=== PATIENT | male | born 1965 | race African-American/Black ===

== ENCOUNTER 2016-05-13 08:13 | Inpatient (IN) | payer MEDICAID, OTHER ==
[~2016-05-13] VITALS: Ht 182.9 cm; Wt 167.7 kg
[2016-05-13] VITALS (17 sets, daily range): BP systolic 120–183; BP diastolic 64–101; PULSE 62–88; RESP 13–23; TEMP 95–98.5; O2SAT 83–100
[~2016-05-13 08:13] MED LIST: CYCL1TAB29 PO; FURO20TA PO; IBUP800T23 PO; LOVA40TA PO
[2016-05-13] MEDS ORDERED: VECURONIUM BROMIDE 10 MG VIAL ONE (08:17)
[2016-05-13] MEDS ORDERED: ETOMIDATE 20 MG/10 ML VIAL ONE (08:17)
[2016-05-13] MEDS ORDERED: SUCCINYLCHOLINE CHLORIDE 200 MG/10 ML VIAL ONE (08:26)
[2016-05-13] MEDS ORDERED: ETOMIDATE 20 MG/10 ML VIAL IVP ONE (08:45)
[2016-05-13] MEDS ORDERED: SUCCINYLCHOLINE CHLORIDE 200 MG/10 ML VIAL IVP ONE (08:45)
[2016-05-13] MEDS ORDERED: SODIUM CHLORIDE 0.9% FLUSH 5 ML FLUSH IVF PRN ×2 (08:45)
[2016-05-13] MEDS ORDERED: VECURONIUM BROMIDE 10 MG VIAL IV ONE (08:45)
[2016-05-13] MEDS ORDERED: PROPOFOL 200 MG/20 ML AMP IV ONE ×2 (08:45→12:00)
[2016-05-13] MEDS: SODIUM CHLOR 0.9% 1000 ML INJ 1,000 ML IV SCH (08:49)
[2016-05-13] MEDS ORDERED: AZITHROMYCIN INJ 500 MG in SODIUM CHLOR 0.9% 250 ML INJ 250 ML IV STA (09:02)
[2016-05-13] MEDS ORDERED: cefTRIAXone INJ 2,000 MG in SODIUM CHLORIDE 0.9% INJ 100 ML IV STA (09:02)
--- NOTE | 2016-05-13 09:07 | PD ---
HPI Chief Complaint: Respiratory Distress Time Seen by Provider: 08:36 Travel History International Travel<30 days: No Contact w/Intl Traveler<30days: No Traveled to known affect area: No History of Present Illness HPI 51-year-old male with unknown medical history, presents to the ER today brought in by EMS, apparently was found down on a park bench, unresponsive, coarse respirations, and EMS had initiated attempt to intubate the patient due to coarse respiration and not protecting airway, and were unsuccessful on scene. He is brought into the ER for unresponsiveness. He has not able to give me any further history. Modifying Factors: None Associated Signs & Symptoms: Unresponsive, coarse respirations, not protecting airway Risk Factors: Unknown PFSH Past Medical History Medical History: Unable to Obtain Tetanus Vaccination: Unknown Past Surgical History Surgical History: Unable to Obtain Social History Alcohol Use: No (UNOBTAINABLE) Tobacco Use: No (UNOBTAINABLE) Substance Use: No (UNOBTAINABLE) Allergies-Medications (Allergen,Severity, Reaction): Coded Allergies: No Known Allergies (Unverified , 05/13/16) Reported Meds & Prescriptions Reported Meds & Active Scripts Active Active Prescriptions or Reported Medications Unobtainable Review of Systems ROS Limitations: Unresponsive Physical Exam Narrative GENERAL: Well-nourished, well-developed middle age -French male patient who is unresponsive to painful stimuli, intubated in the ER for airway protection. SKIN: Warm and dry. HEAD: Normocephalic. EYES: No scleral icterus. No injection or drainage. Pupils are round, equal, dilated bilaterally not responsive to light. NECK: Supple, trachea midline. CARDIOVASCULAR: Regular rate and rhythm without murmurs, gallops, or rubs. RESPIRATORY: Breath sounds equal and coarse bilaterally. No accessory muscle use. GASTROINTESTINAL: Abdomen soft, non-tender, nondistended. MUSCULOSKELETAL: No cyanosis, or edema. BACK: Nontender without obvious deformity. No CVA tenderness. Data Data Last Documented VS Vital Signs Date Time Temp Pulse Resp B/P Pulse Ox O2 Delivery O2 Flow Rate FiO2 05/13/16 09:13 60 05/13/16 09:03 95.0 67 18 147/69 100 Ventilator 05/13/16 08:19 15 Orders Etomidate Inj (Amidate Inj) (05/13/16 08:17) Vecuronium 10 Mg Inj (Norcuron 10 Mg Inj (05/13/16 08:17) Succinylcholine Inj (Quelicin Inj) (05/13/16 08:26) Chest, Single Ap (05/13/16 08:36) Arterial Blood Gas (Abg) (05/13/16 08:36) Ecg Monitoring (05/13/16 08:36) Iv Access Insert/Monitor (05/13/16 08:36) Oximetry (05/13/16 08:36) Etomidate Inj (Amidate Inj) (05/13/16 08:45) Succinylcholine Inj (Quelicin Inj) (05/13/16 08:45) Vecuronium 10 Mg Inj (Norcuron 10 Mg Inj (05/13/16 08:45) Sodium Chloride 0.9% Flush (Ns Flush) (05/13/16 08:45) Alcohol (Ethanol) (05/13/16 08:36) Ammonia (05/13/16 08:36) Complete Blood Count With Diff (05/13/16 08:36) Comprehensive Metabolic Panel (05/13/16 08:36) Creatine Kinase (Cpk) (05/13/16 08:36) Drug Screen, Random Urine (05/13/16 08:36) Prothrombin Time / Inr (Pt) (05/13/16 08:36) Act Partial Throm Time (Ptt) (05/13/16 08:36) Troponin I (05/13/16 08:36) Thyroid Stimulating Hormone (05/13/16 08:36) Lactic Acid Sepsis Protocol (05/13/16 08:36) Urinalysis - C+S If Indicated (05/13/16 08:36) Blood Culture (05/13/16 08:36) Ct Brain W/O Iv Contrast(Rout) (05/13/16 08:36) Blood Glucose (05/13/16 08:36) Urinary Catheter Insert/Apply (05/13/16 08:36) Sodium Chloride 0.9% Flush (Ns Flush) (05/13/16 08:45) Sodium Chlor 0.9% 1000 Ml Inj (Ns 1000 M (05/13/16 08:36) Propofol 1000 Mg/100 Ml Inj (Diprivan 10 (05/13/16 08:45) Propofol 200 Mg/20 Ml Inj (Diprivan 200 (05/13/16 08:45) Restraints Non-Violent HENRIQUE.Q3H (05/13/16 09:02) Ceftriaxone Inj (Rocephin Inj) (05/13/16 09:02) Azithromycin Inj (Zithromax Inj) (05/13/16 09:02) Admit Order (Ed Use Only) (05/13/16 09:32) CKMB (05/13/16 08:45) CKMB% (05/13/16 08:45) Labs Laboratory Tests Test 05/13/16 05/13/16 05/13/16 08:35 08:45 08:53 Urine Color YELLOW Urine Turbidity CLEAR Urine pH 5.0 Urine Specific [place] 1.016 Urine Protein NEG mg/dL Urine Glucose (UA) 1000 mg/dL Urine Ketones 10 mg/dL Urine Occult Blood NEG Urine Nitrite NEG Urine Bilirubin NEG Urine Urobilinogen LESS THAN 2.0 MG/DL Urine Leukocyte Esterase NEG Urine RBC LESS THAN 1 /hpf Urine WBC 3 /hpf Urine Squamous Epithelial <1 /hpf Cells Urine Mucus FEW /lpf Microscopic Urinalysis Comment CATH-CULT NOT IND Urine Opiates Screen NEG Urine Barbiturates Screen NEG Urine Amphetamines Screen NEG Urine Benzodiazepines Screen NEG Urine Cocaine Screen NEG Urine Cannabinoids Screen NEG White Blood Count 10.3 TH/MM3 Red Blood Count 4.50 MIL/MM3 Hemoglobin 12.2 GM/DL Hematocrit 37.7 % Mean Corpuscular Volume 83.8 FL Mean Corpuscular Hemoglobin 27.1 PG Mean Corpuscular Hemoglobin 32.4 % Concent Red Cell Distribution Width 14.7 % Platelet Count 203 TH/MM3 Mean Platelet Volume 7.6 FL Neutrophils (%) (Auto) 86.7 % Lymphocytes (%) (Auto) 5.9 % Monocytes (%) (Auto) 7.1 % Eosinophils (%) (Auto) 0.0 % Basophils (%) (Auto) 0.3 % Neutrophils # (Auto) 8.9 TH/MM3 Lymphocytes # (Auto) 0.6 TH/MM3 Monocytes # (Auto) 0.7 TH/MM3 Eosinophils # (Auto) 0.0 TH/MM3 Basophils # (Auto) 0.0 TH/MM3 CBC Comment DIFF FINAL Differential Comment Prothrombin Time 10.9 SEC Prothromb Time International 1.0 RATIO Ratio Activated Partial 26.8 SEC Thromboplast Time Sodium Level 134 MEQ/L Potassium Level 3.8 MEQ/L Chloride Level 101 MEQ/L Carbon Dioxide Level 19.9 MEQ/L Anion Gap 13 MEQ/L Blood Urea Nitrogen 7 MG/DL Creatinine 0.89 MG/DL Estimat Glomerular Filtration 110 ML/MIN Rate Random Glucose 209 MG/DL Lactic Acid Level 5.1 mmol/L Calcium Level 8.4 MG/DL Total Bilirubin 0.2 MG/DL Aspartate Amino Transf 26 U/L (AST/SGOT) Alanine Aminotransferase 23 U/L (ALT/SGPT) Alkaline Phosphatase 88 U/L Ammonia 33 MCMOL/L Total Creatine Kinase 368 U/L Creatine Kinase MB 3.0 NG/ML Creatine Kinase MB % 0.8 % Troponin I LESS THAN 0.02 NG/ML Total Protein 7.8 GM/DL Albumin 3.8 GM/DL Thyroid Stimulating Hormone 0.325 uIU/ML 3rd Gen Ethyl Alcohol Level LESS THAN 3 MG/DL Blood Gas Puncture Site LT RADIAL Blood Gas Patient Temperature 98.6 Blood Gas HCO3 21 mmol/L Blood Gas Base Excess -3.7 mmol/L Blood Gas Oxygen Saturation 95 % Arterial Blood pH 7.32 Arterial Blood Partial 43 mmHg Pressure CO2 Arterial Blood Partial 170 mmHG Pressure O2 Arterial Blood Oxygen Content 17.5 Vol % Arterial Blood 1.6 % Carboxyhemoglobin Arterial Blood Methemoglobin 2.7 % Blood Gas Hemoglobin 12.9 G/DL Oxygen Delivery Device VENTILATOR Blood Gas Ventilator Setting PRVC/AC Blood Gas Inspired Oxygen 100 % [facility] Medical Decision Making Medical Screen Exam Complete: Yes Emergency Medical Condition: Yes Medical Record Reviewed: Yes Interpretation(s) Laboratory Tests Test 05/13/16 05/13/16 05/13/16 08:35 08:45 08:53 Urine Glucose (UA) 1000 mg/dL (NEG) Urine Ketones 10 mg/dL (NEG) Urine Mucus FEW /lpf (OCC) Hemoglobin 12.2 GM/DL (13.0-17.0) Hematocrit 37.7 % (39.0-51.0) Neutrophils (%) (Auto) 86.7 % (16.0-70.0) Lymphocytes (%) (Auto) 5.9 % (9.0-44.0) Neutrophils # (Auto) 8.9 TH/MM3 (1.8-7.7) Lymphocytes # (Auto) 0.6 TH/MM3 (1.0-4.8) Sodium Level 134 MEQ/L (136-145) Carbon Dioxide Level 19.9 MEQ/L (21.0-32.0) Random Glucose 209 MG/DL (74-106) Lactic Acid Level 5.1 mmol/L (0.4-2.0) Calcium Level 8.4 MG/DL (8.5-10.1) Ammonia 33 MCMOL/L (11-32) Total Creatine Kinase 368 U/L (39-308) Troponin I LESS THAN 0.02 NG/ML (0.02-0.05) Thyroid Stimulating Hormone 0.325 uIU/ML 3rd Gen (0.358-3.740) Blood Gas HCO3 21 mmol/L (22-26) Blood Gas Base Excess -3.7 mmol/L (-2-2) Arterial Blood pH 7.32 (7.380-7.420) Arterial Blood Partial 43 mmHg (38-42) Pressure CO2 Arterial Blood Partial 170 mmHG Pressure O2 (61-120) Arterial Blood Methemoglobin 2.7 % (0-2) Last [address] 05/13/16835 Signed Impressions: Service Date/Time: Friday, May 13, 2016 09:57 - CONCLUSION: 1. There is a large left parietal hemorrhage measuring 6.5 x 7.5 cm which has ruptured into the ventricular system. There is 2 cm of left to right falcine shift and some degree of downward herniation as well. Nomi Conti MD Chest X-Ray 05/13/16835 Signed Impressions: Service Date/Time: Friday, May 13, 2016 08:42 - CONCLUSION: 1. ET tube in good position. 2. Widening of the mediastinum. CT imaging of the thorax with contrast is warranted for further assessment. Nomi Conti MD Differential Diagnosis Unresponsive, coarse respirationsaspiration versus pneumonia versus CHF versus COPD versus metabolic issues versus acute intracranial processes Narrative Course Patient is intubated in the ER for airway protection. Considering the greenish discharge seen within the respiratory tract, IV antibiotics were initiated as precaution. Cultures were drawn. Chest x-ray returns showing bilateral fluffy infiltrates and ET tube appears to be in place. There is some concern of underlying aspiration versus pneumonia. In addition, CT of the brain returns showing large parietal hemorrhage with shift. At this point, neurosurgery was called to be involved in care, Dr. Turner came in to see the patient and states that there is not likely to be a surgical cure for this, that the patient should be admitted to program management analyst care. Case had been initially discussed with Dr. Greer for admission to ICU, he accepted the case initially. Aggregate critical care time was 35 minutes. Time to perform other separately billable procedures was not included in the critical care time. My time did not include minutes spent treating any other patients simultaneously or on activities that did not directly contribute to the patient's treatment. The services I provided to this patient were to treat and/or prevent clinically significant deterioration that could result in: Respiratory failure, worsening intracranial hemorrhage, I provided critical care services requiring my management, as noted below: Chart data review, documentation time, medication orders and management, vital sign assessments/reviewing monitor data, ordering and reviewing lab tests, ordering and interpreting/reviewing x-rays and diagnostic studies, care of the patient and discussion of the patient with the admitting physicians. Procedures Procedure Narrative Patient is not protecting the airway, obtunded, the following procedure was performed for airway protection: INTUBATION: The patient was put in optimal position for the procedure. Rapid sequence intubation was initiated by me using 20 milligrams of etomidate IV and 10 mg of vecuronium IV which she did not respond to well, and 100 milligrams of succinylcholine IV was given. The patient was intubated with a 8.0 cuffed endotracheal tube. Tube placement was confirmed by visualization of the tube and balloon passing through the cords, capnometry and subsequent chest x-ray. Breath sounds were equal and well aerated bilaterally postintubation. No breath sounds over stomach. Patient tolerated procedure well. Diagnosis Primary Impression: Acute intracranial hemorrhage Additional Impression: Endotracheally intubated Admitting Information Admitting Physician Requests: Admit Scripts Unable to Obtain Active Prescriptions or Reported Meds Landon Denny MD May 13, 2016 09:06
[2016-05-13 09:16] LABS: BLOOD, URINE NEG (NEG); GLUCOSE,URINE 1000 mg/dL (NEG); KETONE, URINE 10 mg/dL (NEG); MUCUS URINE FEW /lpf (OCC); NITRITE,URINE NEG (NEG); SQUAMOUS EPITHELIAL CELL URINE <1 /hpf (0-5); URINE COLOR YELLOW (YELLW/STRAW)
[2016-05-13 09:18] LABS: COMMENT (UR) CATH-CULT NOT IND; CULTURE IF INDICATED CATH CULTURE NOT IND
[2016-05-13 09:26] LABS: BLOOD GAS BASE EXCESS -3.7 mmol/L (-2-2); BLOOD GAS CARBOXYHEMOGLOBIN 1.6 % (0-4); BLOOD GAS HCO3 21 mmol/L (22-26); BLOOD GAS METHEMOGLOBIN 2.7 % (0-2); BLOOD GAS O2 HGB SATURATION 95 % (90-100); BLOOD GAS OXYGEN CONTENT 17.5 Vol % (12.0-20.0); BLOOD GAS PCO2 43 mmHg (38-42); BLOOD GAS PO2 170 mmHG (61-120); BLOOD GAS TOTAL HGB 12.9 G/DL (12.0-16.0); CRITICAL VALUE NO; OXYGEN DEVICE VENTILATOR; TEMP CORR TO 98.6
[2016-05-13 09:26] LABS: AUTOMATED NEUTROPHIL # 8.9 TH/MM3 (1.8-7.7); BASOPHIL % 0.3 % (0.0-2.0); HEMATOCRIT 37.7 % (39.0-51.0); HEMO FLAGS DIFF FINAL; LYMPH % 5.9 % (9.0-44.0); LYMPHOCYTE # 0.6 TH/MM3 (1.0-4.8); MEAN CELL VOLUME 83.8 FL (80.0-100.0); MEAN CORPUSCULAR HEMOGLOBIN 27.1 PG (27.0-34.0); MEAN CORPUSCULAR HGB CONC 32.4 % (32.0-36.0); MONO % 7.1 % (0.0-8.0); NEUT % 86.7 % (16.0-70.0); PLATELET COUNT 203 TH/MM3 (150-450); RED CELL DISTRIBUTION WIDTH 14.7 % (11.6-17.2); WHITE BLOOD COUNT 10.3 TH/MM3 (4.0-11.0)
[2016-05-13 09:27] LABS: DRAW SITE LT RADIAL; FIO2 100 %; NUMBER OF ARTERIAL PUNCTURES 1; STAT YES; ULNAR PULSE PRESENT; VENT SETTINGS PRVC/AC
[2016-05-13 09:31] LABS: APTT (PATIENT) 26.8 SEC (24.3-30.1); PROTHROMBIN TIME - PATIENT 10.9 SEC (9.8-11.6)
--- NOTE | 2016-05-13 09:35 | RADRPT ---
EXAM DATE/TIME: 05/13/2016 08:42 [facility] COMPARISON: No previous studies available for comparison. INDICATIONS : Post intubation MEDICAL HISTORY : None. SURGICAL HISTORY : None. ENCOUNTER: Initial ACUITY: 1 day PAIN SCORE: Non-responsive. LOCATION: Bilateral chest FINDINGS: The heart is normal in size. There is widening of the mediastinum and peritracheal region bilaterally . This would suggest probable adenopathy. Hemorrhage or aortic dissection is not excluded. CT imaging of the thorax is warranted for further assessment. The ET tubes in good position. No pneumothorax is seen. The pulmonary parenchyma is clear. The bony structures are intact. CONCLUSION: 1. ET tube in good position. 2. Widening of the mediastinum. CT imaging of the thorax with contrast is warranted for further asses sment. Nomi Conti MD on May 13, 2016 at 9:32 Board Certified Radiologist. This report was verified electronically.
[2016-05-13 09:52] LABS: ANION GAP 13 MEQ/L (5-15); AST (GOT) 26 U/L (15-37); BICARBONATE 19.9 MEQ/L (21.0-32.0); BLOOD UREA NITROGEN 7 MG/DL (7-18); CHLORIDE 101 MEQ/L (98-107); GLOMERULAR FILTRATION RATE 110 ML/MIN (>89); POTASSIUM 3.8 MEQ/L (3.5-5.1); SODIUM (NA) 134 MEQ/L (136-145)
[2016-05-13 09:53] LABS: AMPHETAMINE, URINE NEG (NEG); BARBITURATES, URINE NEG (NEG); COCAINE, URINE NEG (NEG)
[2016-05-13 09:57] LABS: ALKALINE PHOSPHATASE 88 U/L (45-117); ALT (GPT) 23 U/L (12-78); CREATINE KINASE 368 U/L (39-308); TOTAL BILIRUBIN ADULT 0.2 MG/DL (0.2-1.0)
--- NOTE | 2016-05-13 10:16 | RADRPT ---
EXAM DATE/TIME: 05/13/2016 09:57 [facility] COMPARISON: No previous studies available for comparison. INDICATIONS : Found down on side of road, hypothermic RADIATION DOSE: 71.96 CTDIvol (mGy) MEDICAL HISTORY : Non-responsive. SURGICAL HISTORY : Non-responsive. ENCOUNTER: Initial ACUITY: 1 day PAIN SCALE: Non-responsive LOCATION: cranial TECHNIQUE: Multiple contiguous axial images were obtained of the head. Using automated exposure control and adj ustment of the mA and/or kV according to patient size, radiation dose was kept as low as reasonably a chievable to obtain optimal diagnostic quality images. FINDINGS: The examination demonstrates intraparenchymal hemorrhage in the left parietal cortex measuring only 7 .5 x 6.5 cm. There is rupture of the hemorrhage into the ventricular system with hemorrhage filling t he left lateral ventricle and partially filling the lateral ventricular system on the right. There is hemorrhage seen within the third and fourth ventricle as well. There is significant mass effect asso ciated with the hemorrhage with at least 2 cm of left to right falcine shift. There is mild effacemen t of the ambient and coronal cisterns on the right suggesting some degree of transtentorial herniatio n. There is enlargement of anterior horn of the right lateral ventricle. The osseous structures of the skull are intact. There is moderate mucoperiosteal sinus disease eviden t. CONCLUSION: 1. There is a large left parietal hemorrhage measuring 6.5 x 7.5 cm which has ruptured into the ventr icular system. There is 2 cm of left to right falcine shift and some degree of downward herniation as well. Nomi Conti MD on May 13, 2016 at 10:12 Board Certified Radiologist. This report was verified electronically.
[2016-05-13] MEDS: PROPOFOL 1000 MG/100 ML INJ 100 ML IV SCH ×3 (10:36→23:03)
[2016-05-13 11:07] LABS: LACTIC ACID GHOST NOT REPORTABLE
--- NOTE | 2016-05-13 11:55 | PD.CONS ---
History of Present Illness Service Surgery Consult Requested By Emergency room Reason for Consult Intracranial hemorrhage Primary Care Physician No Primary Care Physician Diagnoses: History of Present Illness 51-year-old male reportedly found unresponsive on a park bench this morning. Reported with course shallow respirations at the scene, unable to intubate prior to arrival in the emergency room. Now intubated, with stable vital signs. No seizure activity reported. Patient reportedly resides at a homeless center. Thus far unable to contact family members for additional information. Review of Systems Other Unable to obtain review of systems due to altered mental status Past Family Social History Allergies: Coded Allergies: No Known Allergies (Unverified , 05/13/16) Past Medical History Unable to obtain past medical, surgical, social or family history due to altered mental status. No family available Physical Exam Vital Signs Vital Signs Date Time Temp Pulse Resp B/P Pulse Ox O2 Delivery O2 Flow Rate FiO2 05/13/16 10:24 95.5 65 18 146/100 100 Ventilator 05/13/16 09:45 100 100 05/13/16 09:13 60 05/13/16 09:03 95.0 67 18 147/69 100 Ventilator 100 05/13/16 08:50 63 16 175/84 100 Ventilator 100 05/13/16 08:40 99 100 05/13/16 08:37 62 18 183/87 100 Ventilator 100 05/13/16 08:31 100 05/13/16 08:19 93 Bag Valve 15 05/13/16 08:16 95.3 79 16 183/101 83 Physical Exam Obese male, intubated, and examined in the emergency room. No scalp lacerations or contusion noted Increased room external auditory canals without CSF otorrhea or rhinorrhea No blood in the external auditory canals No nuchal rigidity Positive bilateral cataracts-fundi not well seen Sclera mildly icteric with moderate bilateral conjunctival edema No facial fracture or deformity or edema. Oropharynx not well seen due to endotracheal tube Respirations clear to auscultation Cardiac regular without murmur No carotid bruit Abdomen soft, obese, mildly distended, hypoactive bowel sounds. Apparent surgical incisions over the abdomen No long bone or joint deformity Posterior tibial and dorsalis pedis pulses are not palpable Mild to moderate distal lower extremity edema No response to voice No eye opening spontaneous or to deep pain Pupil 6 mm nonreactive Moderate bilateral corneal response Absent oculocephalic response Extensor posturing on the right with mixed minimal flexor and extensor posturing on the left upper extremity to deep pain. No response to pain lower extremities Cristopher's response absent bilateral No ankle clonus Laboratory Laboratory Tests Test 05/13/16 05/13/16 05/13/16 08:35 08:45 08:53 Urine Color YELLOW Urine Turbidity CLEAR Urine pH 5.0 Urine Specific [place] 1.016 Urine Protein NEG Urine Glucose (UA) 1000 Urine Ketones 10 Urine Occult Blood NEG Urine Nitrite NEG Urine Bilirubin NEG Urine Urobilinogen LESS THAN 2.0 Urine Leukocyte Esterase NEG Urine RBC LESS THAN 1 Urine WBC 3 Urine Squamous Epithelial <1 Cells Urine Mucus FEW Microscopic Urinalysis Comment CATH-CULT NOT IND Urine Opiates Screen NEG Urine Barbiturates Screen NEG Urine Amphetamines Screen NEG Urine Benzodiazepines Screen NEG Urine Cocaine Screen NEG Urine Cannabinoids Screen NEG White Blood Count 10.3 Red Blood Count 4.50 Hemoglobin 12.2 Hematocrit 37.7 Mean Corpuscular Volume 83.8 Mean Corpuscular Hemoglobin 27.1 Mean Corpuscular Hemoglobin 32.4 Concent Red Cell Distribution Width 14.7 Platelet Count 203 Mean Platelet Volume 7.6 Neutrophils (%) (Auto) 86.7 Lymphocytes (%) (Auto) 5.9 Monocytes (%) (Auto) 7.1 Eosinophils (%) (Auto) 0.0 Basophils (%) (Auto) 0.3 Neutrophils # (Auto) 8.9 Lymphocytes # (Auto) 0.6 Monocytes # (Auto) 0.7 Eosinophils # (Auto) 0.0 Basophils # (Auto) 0.0 CBC Comment DIFF FINAL Differential Comment Prothrombin Time 10.9 Prothromb Time International 1.0 Ratio Activated Partial 26.8 Thromboplast Time Sodium Level 134 Potassium Level 3.8 Chloride Level 101 Carbon Dioxide Level 19.9 Anion Gap 13 Blood Urea Nitrogen 7 Creatinine 0.89 Estimat Glomerular Filtration 110 Rate Random Glucose 209 Lactic Acid Level 5.1 Calcium Level 8.4 Total Bilirubin 0.2 Aspartate Amino Transf 26 (AST/SGOT) Alanine Aminotransferase 23 (ALT/SGPT) Alkaline Phosphatase 88 Ammonia 33 Total Creatine Kinase 368 Creatine Kinase MB 3.0 Creatine Kinase MB % 0.8 Troponin I LESS THAN 0.02 Total Protein 7.8 Albumin 3.8 Thyroid Stimulating Hormone 0.325 3rd Gen Ethyl Alcohol Level LESS THAN 3 Blood Gas Puncture Site LT RADIAL Blood Gas Patient Temperature 98.6 Blood Gas HCO3 21 Blood Gas Base Excess -3.7 Blood Gas Oxygen Saturation 95 Arterial Blood pH 7.32 Arterial Blood Partial 43 Pressure CO2 Arterial Blood Partial 170 Pressure O2 Arterial Blood Oxygen Content 17.5 Arterial Blood 1.6 Carboxyhemoglobin Arterial Blood Methemoglobin 2.7 Blood Gas Hemoglobin 12.9 Oxygen Delivery Device VENTILATOR Blood Gas Ventilator Setting PRVC/AC Blood Gas Inspired Oxygen 100 Date/Time Procedure Status Source Growth 05/13/16 09:00 Aerobic Blood Culture Received Blood Peripheral Pending 05/13/16 09:00 Anaerobic Blood Culture Received Blood Peripheral Pending Result Diagram: 05/13/16 0845 05/13/1645 Imaging 05/13/16 CT scan head images reviewed by the undersigned. Agree with findings as noted below: Head CT 05/13/16835 Signed Impressions: Service Date/Time: Friday, May 13, 2016 09:57 - CONCLUSION: 1. There is a large left parietal hemorrhage measuring 6.5 x 7.5 cm which has ruptured into the ventricular system. There is 2 cm of left to right falcine shift and some degree of downward herniation as well. Nomi Conti MD Chest X-Ray 05/13/16835 Signed Impressions: Service Date/Time: Friday, May 13, 2016 08:42 - CONCLUSION: 1. ET tube in good position. 2. Widening of the mediastinum. CT imaging of the thorax with contrast is warranted for further assessment. Nomi Conti MD Assessment and Plan Assessment and Plan Impression: 1. Left hemisphere large acute intracranial hemorrhage with significant mass effect. Secondary entrapment of the right lateral ventricle with right ventriculomegaly. Plan: Attempted to contact the patient's listed family member, his sister, 2 without success. Patient reportedly lives at a homeless halfway. Despite the large size of the endocranial hemorrhage, he is maintaining moderate amount of mid to lower brain stem response, without evidence of significant brainstem hemorrhage or infarction. Since we are unable to contact family members, we will assume that full intervention is desired, and proceed with surgical evacuation of the hematoma with right ventriculostomy catheter placement. Discussed with emergency room physician Len Turner MD May 13, 2016 11:55
[2016-05-13] MEDS ORDERED: PHENYLEPHRINE HCL 10 MG/ML VIAL IV ONE (12:00)
[2016-05-13] MEDS ORDERED: NORMOSOL R INJ 1,000 ML IV ONE ×2 (12:00)
[2016-05-13] MEDS ORDERED: LACTATED RINGER'S 1000 ML INJ 1,000 ML IV ONE (12:00)
[2016-05-13] MEDS ORDERED: ONDANSETRON HCL 4 MG/2 ML VIAL IV PUSH ONE (12:00)
[2016-05-13] MEDS ORDERED: PHENYLEPH/NS 1000 MCG/10 ML SYR IV ONE (12:00)
[2016-05-13] MEDS ORDERED: LIDOCAINE 1%/EPINEPHrine 1:100,000 SOLN 20 ML VIAL ONE (12:14)
[2016-05-13] MEDS ORDERED: THROMBIN (TOPICAL) 5,000 UNIT VIAL ONE ×2 (12:14→15:06)
[2016-05-13] MEDS ORDERED: GELFOAM SIZE 100 ONE (12:14)
[2016-05-13] MEDS ORDERED: GENTAMICIN SULFATE 80 MG/2 ML VIAL ONE (12:14)
[2016-05-13] MEDS ORDERED: MAGNESIUM OXIDE 400 MG TAB PO PRN (13:15)
[2016-05-13] MEDS ORDERED: POTASSIUM PHOSPHATE MONOBASIC 500 MG TAB PO PRN (13:15)
[2016-05-13] MEDS ORDERED: CHLORHEXIDINE GLUCONATE 2 % 1 PACK (2 CLOTHS) TOP PRN (13:15)
[2016-05-13] MEDS ORDERED: GLUCAGON 1 MG/ML VIAL OTHER PRN (13:15)
[2016-05-13] MEDS ORDERED: SENNOSIDES SYRUP 8.8 MG/5 ML CUP G-TUBE PRN (13:15)
[2016-05-13] MEDS ORDERED: MAGNESIUM HYDROXIDE SUSP 30 ML CUP PO PRN (13:15)
[2016-05-13] MEDS ORDERED: POTASSIUM PHOSPHATE MONOBASIC 500 MG TAB PO/TUBE PRN (13:15)
[2016-05-13] MEDS ORDERED: MAGNESIUM SULFATE INJ 4 GM in SODIUM CHLORIDE 0.9% INJ 92 ML IV PRN (13:15)
[2016-05-13] MEDS ORDERED: DEXTROSE 50% IN WATER 50 ML VIAL(D50) IV PUSH PRN (13:15)
[2016-05-13] MEDS ORDERED: ONDANSETRON HCL 4 MG/2 ML VIAL IV PRN (13:15)
[2016-05-13] MEDS ORDERED: RESP: ALBUTEROL 2.5 MG/IPRATROPIUM 0.5 MG NEB (PRN) INH (13:15)
[2016-05-13] MEDS ORDERED: POTASSIUM CHLOR 20 MEQ PREMIX 100 ML IV PRN ×2 (13:15)
[2016-05-13] MEDS ORDERED: MISCELLANEOUS NURSING INFORMATION XX SCH (13:15)
[2016-05-13] MEDS ORDERED: SODIUM CHLORIDE 0.9% FLUSH 5 ML FLUSH IV FLUSH PRN (13:15)
[2016-05-13] MEDS ORDERED: MAGNESIUM SULFATE INJ 2 GM in SODIUM CHLORIDE 0.9% INJ 96 ML IV PRN (13:15)
[2016-05-13] MEDS ORDERED: ACETAMINOPHEN 325 MG TAB PO PRN (13:15)
[2016-05-13] MEDS ORDERED: POTASSIUM CL 40 MEQ/30 ML LIQ UDC PO/TUBE PRN ×2 (13:15)
[2016-05-13] MEDS ORDERED: POTASSIUM PHOSPHATE INJ 30 MMOL in SODIUM CHLOR 0.9% 250 ML INJ 250 ML IV PRN (13:15)
[2016-05-13] MEDS ORDERED: POTASSIUM CHLOR 40 MEQ PREMIX 100 ML IV PRN (13:15)
[2016-05-13] MEDS ORDERED: SODIUM PHOSPHATE INJ 30 MMOL in SODIUM CHLOR 0.9% 250 ML INJ 240 ML IV PRN (13:15)
[2016-05-13] MEDS: DOCUSATE SODIUM 100 MG/10 ML UDC G-TUBE SCH (14:00)
[2016-05-13 14:10] LABS: BLOOD GAS BASE EXCESS -1.4 mmol/L (-2-2); BLOOD GAS CARBOXYHEMOGLOBIN 1.3 % (0-4); BLOOD GAS HCO3 22 mmol/L (22-26); BLOOD GAS METHEMOGLOBIN 1.3 % (0-2); BLOOD GAS O2 HGB SATURATION 98 % (90-100); BLOOD GAS OXYGEN CONTENT 15.4 Vol % (12.0-20.0); BLOOD GAS PCO2 33 mmHg (38-42); BLOOD GAS PO2 332 mmHg (61-120); BLOOD GAS TOTAL HGB 10.6 G/DL (12.0-16.0); CRITICAL VALUE NO; OXYGEN DEVICE OR; STAT YES; TEMP CORR TO 98.6
[2016-05-13] MEDS: RESP: ALBUTEROL 2.5 MG/IPRATROPIUM 0.5 MG NEB (SCH) INH ×2 (16:00→22:12)
[2016-05-13] MEDS ORDERED: PROPOFOL 500 MG/50 ML INJ 50 ML ONE (16:21)
[2016-05-13] MEDS ORDERED: DO NOT ADM ANY ANTICOAGULANT DRUGS XX PRN (17:09)
[2016-05-13] MEDS: INSULIN ASPART SUPPLEMENTAL SCALE SQ SCH ×2 (17:10→21:00)
[2016-05-13] MEDS ORDERED: MIDAZOLAM HCL 2 MG/2 ML VIAL ONE (17:13)
[2016-05-13] MEDS ORDERED: fentaNYL CITRATE 250 MCG/5 ML AMP ONE (17:14)
--- NOTE | 2016-05-13 17:17 | PD.OP ---
Operative Report Date of Surgery: May 13, 2016 Preoperative Diagnosis: (1) Acute intracranial hemorrhage Large left frontotemporal intracranial hemorrhage Postoperative Diagnosis: (1) Acute intracranial hemorrhage Large left frontotemporal intracranial hemorrhage Procedure: 1. Left frontotemporal craniotomy-evacuation of large parenchymal intracranial hemorrhage 2. Right frontal twist drill for ventriculostomy catheter placement Anesthesia: Gen. endotracheal Surgeon: Len Turner [employer] Consultant(s): Anthony Liu Operation and Findings: Findings: Large left primarily temporal pericranial hemorrhage with significant mass effect. Detail: The patient was brought into the operating room and general endotracheal anesthesia induced without difficulty. The Concepcion catheter, and sequential compression devices were in place. The lines were established per anesthesia. The patient was placed in semilateral position on the 3080 table with the head on the horseshoe headrest. All extremities were appropriately padded Appropriate time-out procedure was performed with all personnel present and in agreement The left side of the head was shaved with the clippers and sterilely prepped and draped 1% Xylocaine was used for local infiltration over the incision site which was made over the left frontotemporal area in a curvilinear fashion and carried sharply down to the cranium through the temporalis muscle and fascia. The scalp and temporalis muscle flap were elevated in a single layer with the periosteal elevator and retracted r over a laparotomy sponge with the large scalp hooks. The auto care center manager was used to place a single bur hole in the posterior left frontoparietal region and the craniotome was used since to incise the bone flap. The dura was moderately tense upon removal of the bone flap. The dura was opened in a cruciate fashion and the edges retracted with 4-0 Nurolon suture. The microscope was brought into place and used for the remainder of the procedure except for the closure. The bipolar forceps were used to make an approximately 1 cm opening in the parenchyma overlying the intracranial hemorrhage A large amount of subacute hematoma was evacuated with gentle suction and irrigation until clear. The hematoma overlying the sylvian fissure was left intact The bipolar forceps were used to control any bleeding at the operative site. The brain was soft and pulsatile at the time of closure. The dura was closed with 4-0 Nurolon in a interrupted and running fashion. A 7 mm flat fluted drain was left in place in the subdural space A 7 mm flat fluted drain was left in place in the subgaleal space The drains were brought out through incisions in the posterior parietal region and secured to the skin with nylon suture The closure was performed with 2-0 Vicryl for the temporalis muscle fascia and galeal closure and karen for the skin closure. Next, a small incision was made at the right frontal region approximately 10 cm above the supraorbital rim and 4 cm lateral to the midline entered sharply down the cranium. The TPS drill with a 5 mm bone bur was used to place a small opening in the cranium. The dura was incised with a 15 blade knife and coagulated with the bipolar forceps. The Codman back to sealed catheter was placed to a depth of 6-7 cm intracranially with good return of blood tinged CSF under low pressure. The catheter was tunneled to the mid posterior frontal region and secured to the skin with nylon suture. The small right frontal incision was closed with karen. A dressing of sterile Telfa, 4 x 4's, and a loose head stockinette was applied. The patient was taken to recovery room in stable condition All counts were correct at the end of the case. Estimated blood loss was 100 cc No specimen was sent to pathology Len Turner MD May 13, 2016 17:17
[2016-05-13] MEDS ORDERED: *morphine SULFATE 8 MG/ML PERIprocedure ONLY ONE ×3 (17:21→17:50)
[2016-05-13 17:29] LABS: BLOOD GAS BASE EXCESS -0.4 mmol/L (-2-2); BLOOD GAS CARBOXYHEMOGLOBIN 1.2 % (0-4); BLOOD GAS HCO3 23 mmol/L (22-26); BLOOD GAS METHEMOGLOBIN 1.4 % (0-2); BLOOD GAS O2 HGB SATURATION 98 % (90-100); BLOOD GAS OXYGEN CONTENT 16.4 Vol % (12.0-20.0); BLOOD GAS PCO2 35 mmHg (38-42); BLOOD GAS PO2 407 mmHg (61-120); BLOOD GAS TOTAL HGB 11.2 G/DL (12.0-16.0); CRITICAL VALUE NO; DRAW SITE ART LINE; FIO2 100 %; OXYGEN DEVICE VENTILATOR; STAT YES; TEMP CORR TO 98.6; VENT SETTINGS AC 800/10/+5PEEP
--- NOTE | 2016-05-13 17:33 | HHI.HP ---
[facility] Service Critical Care Medicine Primary Care Physician No Primary Care Physician Admission Diagnosis unresponsive/intubated Diagnosis: Travel History International Travel<30 Days: No Contact w/Intl Traveler <30 Da: No Traveled to Known Affected Are: No History of Present Illness 51-year-old morbidly obese male ,with unknown medical history, presented to the ED this am. Per EMS report, the patient was found down on a park bench, unresponsive, coarse respirations.EMS attempted to intubate the patient due to coarse respiration and not protecting airway, and were unsuccessful on scene. He was brought into the ED for unresponsiveness. No family or individuals were present to provide any history. The patient was intubated in the ED. Patient was noted to be hypothermic, temperature 95.0, warming methods were initiated via IV fluid and Leslie Hugger. Imaging studies were performed in the ED, T of the brain noted a large left parietal hemorrhage , neurosurgery was consulted. Dr. Turner evaluated the patient, and critical care medicine was consulted for treatment and management. The patient was then emergently transferred to the OR for evacuation of hematoma with right ventriculostomy placement. [facility] Past Medical History Medical History: Unable to Obtain Tetanus Vaccination: Unknown Past Surgical History Surgical History: Unable to Obtain Social History Alcohol Use: No (UNOBTAINABLE) Tobacco Use: No (UNOBTAINABLE) Substance Use: No (UNOBTAINABLE) Allergies-Medications (Allergen,Severity, Reaction): Coded Allergies: No Known Allergies (Unverified , 05/13/16) Reported Meds & Prescriptions Reported Meds & Active Scripts Active Active Prescriptions or Reported Medications Unobtainable Review of Systems ROS Limitations: Unresponsive Past Family Social History Allergies: Coded Allergies: No Known Allergies (Unverified , 05/13/16) Physical Exam Vital Signs Vital Signs Date Time Temp Pulse Resp B/P Pulse Ox O2 Delivery O2 Flow Rate FiO2 05/13/16 17:04 100 100 05/13/16 13:10 77 20 146/91 100 Ventilator 05/13/16 12:35 100 100 05/13/16 11:37 100 60 05/13/16 10:24 95.5 65 18 146/100 100 Ventilator 05/13/16 09:45 100 100 05/13/16 09:13 60 05/13/16 09:03 95.0 67 18 147/69 100 Ventilator 100 05/13/16 08:50 63 16 175/84 100 Ventilator 100 05/13/16 08:40 99 100 05/13/16 08:37 62 18 183/87 100 Ventilator 100 05/13/16 08:31 100 05/13/16 08:19 93 Bag Valve 15 05/13/16 08:16 95.3 79 16 183/101 83 Laboratory Laboratory Tests Test 05/13/16 05/13/16 05/13/16 05/13/16 08:35 08:45 08:53 12:00 Urine Color YELLOW Urine Turbidity CLEAR Urine pH 5.0 Urine Specific Dodson 1.016 Urine Protein NEG Urine Glucose (UA) 1000 Urine Ketones 10 Urine Occult Blood NEG Urine Nitrite NEG Urine Bilirubin NEG Urine Urobilinogen LESS THAN 2.0 Urine Leukocyte Esterase NEG Urine RBC LESS THAN 1 Urine WBC 3 Urine Squamous Epithelial <1 Cells Urine Mucus FEW Microscopic Urinalysis Comment CATH-CULT NOT IND Urine Opiates Screen NEG Urine Barbiturates Screen NEG Urine Amphetamines Screen NEG Urine Benzodiazepines Screen NEG Urine Cocaine Screen NEG Urine Cannabinoids Screen NEG White Blood Count 10.3 Red Blood Count 4.50 Hemoglobin 12.2 Hematocrit 37.7 Mean Corpuscular Volume 83.8 Mean Corpuscular Hemoglobin 27.1 Mean Corpuscular Hemoglobin 32.4 Concent Red Cell Distribution Width 14.7 Platelet Count 203 Mean Platelet Volume 7.6 Neutrophils (%) (Auto) 86.7 Lymphocytes (%) (Auto) 5.9 Monocytes (%) (Auto) 7.1 Eosinophils (%) (Auto) 0.0 Basophils (%) (Auto) 0.3 Neutrophils # (Auto) 8.9 Lymphocytes # (Auto) 0.6 Monocytes # (Auto) 0.7 Eosinophils # (Auto) 0.0 Basophils # (Auto) 0.0 CBC Comment DIFF FINAL Differential Comment Prothrombin Time 10.9 Prothromb Time International 1.0 Ratio Activated Partial 26.8 Thromboplast Time Sodium Level 134 Potassium Level 3.8 Chloride Level 101 Carbon Dioxide Level 19.9 Anion Gap 13 Blood Urea Nitrogen 7 Creatinine 0.89 Estimat Glomerular Filtration 110 Rate Random Glucose 209 Lactic Acid Level 5.1 4.1 Calcium Level 8.4 Phosphorus Level 2.2 Total Bilirubin 0.2 Aspartate Amino Transf 26 (AST/SGOT) Alanine Aminotransferase 23 (ALT/SGPT) Alkaline Phosphatase 88 Ammonia 33 Total Creatine Kinase 368 Creatine Kinase MB 3.0 Creatine Kinase MB % 0.8 Troponin I LESS THAN 0.02 Total Protein 7.8 Albumin 3.8 Thyroid Stimulating Hormone 0.325 3rd Gen Ethyl Alcohol Level LESS THAN 3 Blood Gas Puncture Site LT RADIAL Blood Gas Patient Temperature 98.6 Blood Gas HCO3 21 Blood Gas Base Excess -3.7 Blood Gas Oxygen Saturation 95 Arterial Blood pH 7.32 Arterial Blood Partial 43 Pressure CO2 Arterial Blood Partial 170 Pressure O2 Arterial Blood Oxygen Content 17.5 Arterial Blood 1.6 Carboxyhemoglobin Arterial Blood Methemoglobin 2.7 Blood Gas Hemoglobin 12.9 Oxygen Delivery Device VENTILATOR Blood Gas Ventilator Setting PRVC/AC Blood Gas Inspired Oxygen 100 Test 05/13/16 05/13/16 05/13/16 05/13/16 12:10 13:53 14:02 14:04 Blood Type O POSITIVE O POSITIVE Antibody Screen NEGATIVE Blood Bank Comment Blood Gas Puncture Site DRAWN IN OR Blood Gas Patient Temperature 98.6 Blood Gas HCO3 22 Blood Gas Base Excess -1.4 Blood Gas Oxygen Saturation 98 Arterial Blood pH 7.44 Arterial Blood Partial 33 Pressure CO2 Arterial Blood Partial 332 Pressure O2 Arterial Blood Oxygen Content 15.4 Arterial Blood 1.3 Carboxyhemoglobin Arterial Blood Methemoglobin 1.3 Blood Gas Hemoglobin 10.6 Oxygen Delivery Device OR Crossmatch Leukocyte-Reduced Red Blood Cells Date/Time Procedure Status Source Growth 05/13/16 09:00 Aerobic Blood Culture Received Blood Peripheral Pending 05/13/16 09:00 Anaerobic Blood Culture Received Blood Peripheral Pending Result Diagram: 05/13/1645 05/13/16 0845 Imaging Last Impressions Head CT 05/13/16 0836 Signed Impressions: Service Date/Time: Friday, May 13, 2016 09:57 - CONCLUSION: 1. There is a large left parietal hemorrhage measuring 6.5 x 7.5 cm which has ruptured into the ventricular system. There is 2 cm of left to right falcine shift and some degree of downward herniation as well. Nomi Conti MD Chest X-Ray 05/13/16 0836 Signed Impressions: Service Date/Time: Friday, May 13, 2016 08:42 - CONCLUSION: 1. ET tube in good position. 2. Widening of the mediastinum. CT imaging of the thorax with contrast is warranted for further assessment. Nomi Conti MD Septic Shock Reassessment Heart: Regular rate and rhythm Lungs: Clear Skin: Warm Peripheral Pulses: Bounding Right Radial Bounding Left Radial Bounding Right Dorsalis Pedis Bounding Left Dorsalis Pedis Capillary Refill: Brisk Assessment and Plan Assessment and Plan Plan by systems: Neurologic: Large left parietal hemorrhage with midline shift -Patient unresponsive on admission to ED .Patient on propofol for sedation. Currently GCS 3T -Patient emergently to OR for surgical evacuation of hematoma with ventriculostomy placement -Monitor his ICP postoperatively. Maintain CPP -CT brain 05/13-large left parietal hemorrhage measuring 6.5x 7.5 cm which has ruptured into the ventricular system. 2 cm of efwp-xx-ecnle falcine shift and some downward herniation -Neurosurgery on board, Dr Turner follow-up recommendations Respiratory: Hypoxic and hypercarbic respiratory failure -Mechanical ventilation, initial ABGs 7.32/43/70/21/-3.7 -Maintain O2 sat greater than 92% -Scheduled bronchodilators every 6 hours, and every 2 hours when necessary -Obtain chest x-ray upon presentation from PACU -Initial chest x-ray ED 05/13 revealed widening of mediastinum Cardiovascular: Hypertension -Maintain MAP > 65 mmHg, -Consider vasopressor support, if needed postoperatively to maintain CPP Renal: -Maintain Concepcion -- Strict I/Os FEN/GI: Morbid obesity -OGT to LIWS, monitor output will begin tube feeds possibly in a.m. -Obtain BMP -Replete electrolytes per ICU protocol -Protonix GI prophylaxis -Zofran for nausea Heme/ID: -Monitor CBC -Follow-up blood culture results Endocrine: -Glucose monitoring every 6 hours per ICU protocol -Obtain TSH -- SSI Prophylaxis: GI Prophylaxis Protonix IV DVT Prophylaxis -- SCDs No pharmacological DVT prophylaxis will defer to neurosurgery, and clinically indicated Lines: Peripheral IVs. Central line if indicated. Dispo: This patient remains critically ill with one or more organ systems which are or may become a threat to life. I have spent in excess of 43 minutes discontinuously in the care and management of this patient. This time is exclusive of procedures, and includes, but is not limited to, evaluation of the patient, review of the medical record, discussions with family, consultants, nursing staff, or respiratory therapy, and documentation in the medical record. Code Status Sheree Salazar Discussed Condition With ED RN at bedside Sheree Salazar MD May 13, 2016 17:33 Sheree Salazar MD May 13, 2016 17:33
--- NOTE | 2016-05-13 17:43 | RADRPT ---
EXAM DATE/TIME: 05/13/2016 17:23 [facility] COMPARISON: CHEST SINGLE AP, May 13, 2016, 8:42. INDICATIONS : Central line placement. MEDICAL HISTORY : None. SURGICAL HISTORY : None. ENCOUNTER: Initial ACUITY: 1 day PAIN SCORE: Non-responsive. LOCATION: Bilateral chest FINDINGS: ET tube remains in place terminating just above the gregor in there is a nasogastric tube placed in t he midline of the stomach as well as a left venous catheter probably subclavian terminating in the neff perior vena cava with no pneumothorax. Mediastinal widening is less prominent and there appears to be homogeneous density airspace disease possibly in the right upper lobe. CONCLUSION: Left venous catheter probably subclavian terminates superior vena cava no pneumothorax. ET tube remai ns just above the gregor with the nasogastric tube into the stomach. Right upper lobe density suggest emma infiltrate or atelectasis Seymour Krueger MD on May 13, 2016 at 17:40 Board Certified Radiologist. This report was verified electronically.
[2016-05-13] MEDS ORDERED: IOHEXOL 350 MG/ML 10 ML VIAL (for RAD DIAG) IV ONE (19:08)
[2016-05-13] MEDS: CHLORHEXIDINE 0.12% (ORAL KIT) 15 ML CUP MT SCH (20:00)
--- NOTE | 2016-05-13 20:48 | RADRPT ---
EXAM DATE/TIME: 05/13/2016 18:55 [facility] COMPARISON: No previous studies available for comparison. INDICATIONS : Status post craniotomy, evaluate for aneurysm. IV CONTRAST: 75 cc Omnipaque 350 (iohexol) IV RADIATION DOSE: 23.35 CTDIvol (mGy) MEDICAL HISTORY : None SURGICAL HISTORY : Craniotomy. ENCOUNTER: Subsequent ACUITY: 1 day PAIN SCALE: Non-responsive LOCATION: Bilateral neck TECHNIQUE: Volumetric scanning was performed using a multirow detector CT scanner. The data was post processed with a variety of visualization algorithms including full-volume maximum intensity projection, multip lanar sliding thin-slab reformation, curved-planar reformation, and surface-rendering techniques. Us ing automated exposure control and adjustment of the mA and/or kV according to patient size, radiatio n dose was kept as low as reasonably achievable to obtain optimal diagnostic quality images. FINDINGS: Great vessel origins are patent. Both external carotid, external carotid and common carotid arteries are patent. Internal carotid artery on the right and left are tortuous. Intracranially there is left craniotomy and a large intracranial hemorrhage as described in recent CT . Right frontal ventriculostomy is present. CONCLUSION: 1. Examination negative for carotid stenosis. Minimal calcific plaque at the carotid bifurcations. Gr eat vessel origins patent. Woo Hernandes MD on May 13, 2016 at 20:44 Board Certified Radiologist. This report was verified electronically.
[2016-05-13 20:58] LABS: AUTOMATED NEUTROPHIL # 8.8 TH/MM3 (1.8-7.7); BASOPHIL % 0.2 % (0.0-2.0); HEMO FLAGS DIFF FINAL; LYMPH % 6.2 % (9.0-44.0); LYMPHOCYTE # 0.6 TH/MM3 (1.0-4.8); MEAN CELL VOLUME 81.7 FL (80.0-100.0); MEAN CORPUSCULAR HEMOGLOBIN 27.6 PG (27.0-34.0); MEAN CORPUSCULAR HGB CONC 33.7 % (32.0-36.0); MONO % 4.5 % (0.0-8.0); NEUT % 89.1 % (16.0-70.0); PLATELET COUNT 200 TH/MM3 (150-450); RED BLOOD COUNT 4.04 MIL/MM3 (4.50-5.90); RED CELL DISTRIBUTION WIDTH 14.5 % (11.6-17.2); WHITE BLOOD COUNT 9.8 TH/MM3 (4.0-11.0)
[2016-05-13] MEDS: SODIUM CHLORIDE 0.9% FLUSH 5 ML FLUSH IV FLUSH SCH (21:00)
--- NOTE | 2016-05-13 21:02 | RADRPT ---
EXAM DATE/TIME: 05/13/2016 18:55 [facility] COMPARISON: No previous studies available for comparison. INDICATIONS : Status post craniotomy, evaluate for aneurysm. IV CONTRAST: 75 cc Omnipaque 350 (iohexol) IV ; Cumulative dose for multiple exams. RADIATION DOSE: 22.35 CTDIvol (mGy) ; Combined studies MEDICAL HISTORY : None SURGICAL HISTORY : Craniotomy. ENCOUNTER: Subsequent ACUITY: 1 day PAIN SCALE: Non-responsive LOCATION: Bilateral head TECHNIQUE: Volumetric scanning was performed using a multi-row detector CT scanner. The data was post processed with a variety of visualization algorithms including full volume maximum intensity projection, multi -planar sliding thin slab reformation, curved planar reformation, and surface rendering techniques. Using automated exposure control and adjustment of the mA and/or kV according to patient size, radiat ion dose was kept as low as reasonably achievable to obtain optimal diagnostic quality images. FINDINGS: There is a large hemorrhage in the left hemisphere. Right frontal ventriculostomy is present with tip near foramen of Wallis. There is persistent left to right midline shift of at least 13 mm. There is some pneumocephalus anteriorly. Left craniotomy defect is present. There is a drain in the left hemis phere near the posterior aspect of the hematoma. There is intracranial vasospasm present. Anterior cerebral arteries, right middle cerebral artery and posterior cerebral arteries demonstrate vasospasm but positive flow. There is some extrinsic impress ion on the left middle cerebral artery. Along the posterior aspect of the distal left middle cerebral artery there is an area of increased attenuation. It is unclear if this represents some extravasatio n of contrast or partial filling of an aneurysm measuring up to about 8 mm in diameter. This may be b lit evaluated angiographically. There is fluid in the paranasal sinuses. CONCLUSION: 1. Questionable aneurysm versus focal extravasation of contrast around the distal left middle cerebra l artery measuring up to 8 mm in diameter. This may be better evaluated angiographically. Intracrania l vasospasm present. Woo Hernandes MD on May 13, 2016 at 20:54 Board Certified Radiologist. This report was verified electronically.
[2016-05-13 21:27] LABS: ALKALINE PHOSPHATASE 70 U/L (45-117); ALT (GPT) 22 U/L (12-78); ANION GAP 10 MEQ/L (5-15); AST (GOT) 38 U/L (15-37); BICARBONATE 27.1 MEQ/L (21.0-32.0); BLOOD UREA NITROGEN 6 MG/DL (7-18); CHLORIDE 103 MEQ/L (98-107); GLOMERULAR FILTRATION RATE 130 ML/MIN (>89); SODIUM (NA) 140 MEQ/L (136-145); TOTAL BILIRUBIN ADULT 0.4 MG/DL (0.2-1.0)
--- NOTE | 2016-05-13 21:41 | RADRPT ---
EXAM DATE/TIME: 05/13/2016 19:54 [facility] COMPARISON: CHEST SINGLE AP, May 13, 2016, 17:23. INDICATIONS : Respiratory disease MEDICAL HISTORY : None. SURGICAL HISTORY : None. ENCOUNTER: Initial ACUITY: 1 day PAIN SCORE: Non-responsive. LOCATION: Bilateral chest FINDINGS: A single view of the chest demonstrates endotracheal tube tip in satisfactory position. NG coiled in stomach. Left central line in superior vena cava. Scattered subsegmental air space disease in the dangelo gs. CONCLUSION: 1. Scattered subsegmental airspace disease in the lungs. Endotracheal tube in satisfactory position. NG coiled in stomach. Left central line in superior vena cava. Woo Hernandes MD on May 13, 2016 at 21:38 Board Certified Radiologist. This report was verified electronically.
[2016-05-14] VITALS (24 sets, daily range): BP systolic 111–146; BP diastolic 66–81; PULSE 79–91; RESP 10–21; TEMP 94.6–98.1; O2SAT 98–100
[2016-05-14] MEDS: PROPOFOL 1000 MG/100 ML INJ 100 ML IV SCH ×11 (01:04→23:45)
[2016-05-14 01:43] LABS: BICARBONATE 29.2 MEQ/L (21.0-32.0)
[2016-05-14] MEDS: DOCUSATE SODIUM 100 MG/10 ML UDC G-TUBE SCH ×2 (03:07→13:58)
[2016-05-14] MEDS: RESP: ALBUTEROL 2.5 MG/IPRATROPIUM 0.5 MG NEB (SCH) INH ×4 (03:44→19:43)
[2016-05-14] MEDS: CHLORHEXIDINE GLUCONATE 2 % 1 PACK (2 CLOTHS) TOP SCH (04:00)
[2016-05-14 05:15] LABS: AUTOMATED NEUTROPHIL # 7.8 TH/MM3 (1.8-7.7); BASOPHIL % 0.2 % (0.0-2.0); HEMATOCRIT 33.7 % (39.0-51.0); HEMO FLAGS DIFF FINAL; LYMPH % 7.2 % (9.0-44.0); LYMPHOCYTE # 0.7 TH/MM3 (1.0-4.8); MEAN CORPUSCULAR HEMOGLOBIN 27.9 PG (27.0-34.0); MEAN CORPUSCULAR HGB CONC 34.5 % (32.0-36.0); MONO % 6.7 % (0.0-8.0); NEUT % 85.9 % (16.0-70.0); PLATELET COUNT 202 TH/MM3 (150-450); RED BLOOD COUNT 4.16 MIL/MM3 (4.50-5.90); RED CELL DISTRIBUTION WIDTH 14.6 % (11.6-17.2)
[2016-05-14 05:23] LABS: APTT (PATIENT) 27.9 SEC (24.3-30.1); PROTHROMBIN TIME - PATIENT 11.4 SEC (9.8-11.6)
--- NOTE | 2016-05-14 05:45 | RADRPT ---
EXAM DATE/TIME: 05/14/2016 04:36 [facility] COMPARISON: CHEST SINGLE AP, May 13, 2016, 19:54. INDICATIONS : Shortness of breath. MEDICAL HISTORY : None. SURGICAL HISTORY : None. ENCOUNTER: Subsequent ACUITY: 2 days PAIN SCORE: Non-responsive. LOCATION: Bilateral chest FINDINGS: The support devices remain in place. There is no pneumothorax. There continue to be some scattered in filtrates bilaterally. No significant changes are seen compared to the prior study. No definite pleur al effusions. CONCLUSION: No significant interval change. Tommy Gupta MD on May 14, 2016 at 5:43 Board Certified Radiologist. This report was verified electronically.
[2016-05-14 05:56] LABS: TOTAL BILIRUBIN ADULT 0.2 MG/DL (0.2-1.0)
[2016-05-14 05:58] LABS: INDIRECT BILIRUBIN 0.1 MG/DL (0.0-0.8); MAGNESIUM 2.6 MG/DL (1.5-2.5)
[2016-05-14] MEDS: INSULIN ASPART SUPPLEMENTAL SCALE SQ SCH ×4 (07:00→21:00)
[2016-05-14] MEDS: PANTOPRAZOLE SODIUM 40 MG VIAL IV SCH (08:43)
[2016-05-14] MEDS: CHLORHEXIDINE 0.12% (ORAL KIT) 15 ML CUP MT SCH ×2 (08:43→20:00)
[2016-05-14] MEDS: SODIUM CHLOR 0.9% 1000 ML INJ 1,000 ML IV SCH ×2 (09:43→11:00)
--- NOTE | 2016-05-14 10:13 | HHI.CCPN ---
Subjective Remarks/Hospital Course 51-year-old morbidly obese male ,with unknown medical history, presented to the ED this am. Per EMS report, the patient was found down on a park bench, unresponsive, coarse respirations.EMS attempted to intubate the patient due to coarse respiration and not protecting airway, and were unsuccessful on scene. He was brought into the ED for unresponsiveness. No family or individuals were present to provide any history. The patient was intubated in the ED. Patient was noted to be hypothermic, temperature 95.0, warming methods were initiated via IV fluid and Leslie Hugger. Imaging studies were performed in the ED, T of the brain noted a large left parietal hemorrhage , neurosurgery was consulted. Dr. Turner evaluated the patient, and critical care medicine was consulted for treatment and management. The patient was then emergently transferred to the OR for evacuation of hematoma with right ventriculostomy placement. 05/14 Afebrile. The patient is status post evacuation of large left frontal temporal ICH. Overnight the patient had increasing urinary output, approximately 4006 100 cc/hr, for approximately 3 hours with resolution of polyuria. The patient remains sedated on propofol infusion. Cerebral perfusion pressures have been 60-86, throughout the night. Objective Vital Signs Date Time Temp Pulse Resp B/P Pulse Ox O2 Delivery O2 Flow Rate FiO2 05/14/16 07:49 99 35 05/14/16 06:00 88 05/14/16 06:00 14 134/72 05/14/16 04:00 98.1 05/13/16 18:15 Mechanical Ventilator 05/13/16 08:19 15 Intake and Output 05/13/16 05/13/16 05/14/16 08:00 16:00 00:00 Intake Total 3243 ml Output Total 1100 ml 3206 ml Balance -1100 ml 37 ml Result Diagram: 05/14/16 0450 05/14/16 0115 Other Results Laboratory Tests Test 05/13/16 05/13/16 14:02 17:18 Blood Gas Puncture Site DRAWN IN OR ART LINE Blood Gas Patient Temperature 98.6 98.6 Blood Gas HCO3 22 mmol/L 23 mmol/L (22-26) (22-26) Blood Gas Base Excess -1.4 mmol/L -0.4 mmol/L (-2-2) (-2-2) Blood Gas Oxygen Saturation 98 % (90-100) 98 % (90-100) Arterial Blood pH 7.44 7.44 (7.380-7.420) (7.380-7.420) Arterial Blood Partial 33 mmHg (38-42) 35 mmHg (38-42) Pressure CO2 Arterial Blood Partial 332 mmHg 407 mmHg Pressure O2 (61-120) (61-120) Arterial Blood Oxygen Content 15.4 Vol % 16.4 Vol % (12.0-20.0) (12.0-20.0) Arterial Blood 1.3 % (0-4) 1.2 % (0-4) Carboxyhemoglobin Arterial Blood Methemoglobin 1.3 % (0-2) 1.4 % (0-2) Blood Gas Hemoglobin 10.6 G/DL 11.2 G/DL (12.0-16.0) (12.0-16.0) Oxygen Delivery Device OR VENTILATOR Blood Gas Ventilator Setting AC 800/10/+5PEEP Blood Gas Inspired Oxygen 100 % Imaging Last Impressions Head CT 05/13/16835 Signed Impressions: Service Date/Time: Friday, May 13, 2016 09:57 - CONCLUSION: 1. There is a large left parietal hemorrhage measuring 6.5 x 7.5 cm which has ruptured into the ventricular system. There is 2 cm of left to right falcine shift and some degree of downward herniation as well. Nomi Conti MD Chest X-Ray 05/13/16835 Signed Impressions: Service Date/Time: Friday, May 13, 2016 08:42 - CONCLUSION: 1. ET tube in good position. 2. Widening of the mediastinum. CT imaging of the thorax with contrast is warranted for further assessment. Nomi Conti MD Objective Remarks GENERAL: Super morbidly obese male into dated and sedated. SKIN: Warm and dry. HEAD: Atraumatic. Normocephalic. EYES: Pupils equal and round. Pupils 3 mm, cannot assess reactivity No scleral icterus. No injection or drainage. ENT: No nasal bleeding or discharge. Mucous membranes pink and moist. Orotracheally intubated NECK: Trachea midline. Unable to assess JVD, secondary to body habitus. CARDIOVASCULAR: Normal rate, regular rhythm. S1,S2 RESPIRATORY: No accessory muscle use. Clear to auscultation. Breath sounds equal bilaterally. GASTROINTESTINAL: Abdomen soft, non-tender, nondistended. No guarding. OGT to low intermittent wall suction. MUSCULOSKELETAL: Extremities without clubbing, cyanosis, or edema. No obvious deformities. NEUROLOGICAL: GCS 3T. Intubated sedated propofol infusion at 65 mcgs, Urinary Catheter: Yes Concepcion insert reason: Measure Accurate Output Vascular Central Line Catheter: Yes Assessment to: Continue Date of Insertion: May 13, 2016 Line: Central Venous Catheter Side: Left Location: Subclavian (monitor CVP. Administration of vasoactive medications.) A/P Assessment and Plan Plan by systems: Neurologic: Large left frontal temporal hemorrhage with midline shift S/P craniotomy evacuation of left frontotemporal hemorrhage, and ventriculostomy placement POD #1 Unresponsiveness -Patient continues on on propofol for sedation. GCS 3T, will add fentanyl infusion for pain control if needed. -CPP 60-86 -Maintain systolic blood pressure less than 150mmHg -ANDRÉS drain #1 100 cc, ANDRÉS drain#2 90 cc since admission to ICU (approximately 12 hours) -Monitor his ICP postoperatively. -CT brain 05/13-large left parietal hemorrhage measuring 6.5 x 7.5 cm which has ruptured into the ventricular system. 2 cm of [id number] falcine shift and some downward herniation -Neurosurgery on board, Dr Turner follow-up recommendations Respiratory: Hypoxic and hypercarbic respiratory failure -Mechanical ventilation, AC mode 10/800/5/0.35, will decrease tidal volume to 6- 8 cc/kg of IBW -Maintain O2 sat greater than 92% -Scheduled bronchodilators every 6 hours, and every 2 hours when necessary -Initial chest x-ray ED 05/13 revealed widening of mediastinum Cardiovascular: Hypertension -Maintain MAP > 65 mmHg, -Consider vasopressor support, if needed postoperatively to maintain CPP -Maintain systolic blood pressure less than 150mmHg Renal: Polyuria-resolved -Maintain Concepcion -Urine output upon admission to [facility], 400 cc/hour for approximately 3 hours, with self resolution. 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 Central line left subclavian, left radial a line OR, 05/13 Dispo: This patient remains critically ill with one or more organ systems which are or may become a threat to life. I have spent in excess of 58 minutes discontinuously in the care and management of this patient. This time is exclusive of procedures, and includes, but is not limited to, evaluation of the patient, review of the medical record, discussions with family, consultants, nursing staff, or respiratory therapy, and documentation in the medical record. Physician Sheree Deal MD May 14, 2016 10:13
[2016-05-14 10:28] LABS: BLOOD GAS BASE EXCESS 3.1 mmol/L (-2-2); BLOOD GAS CARBOXYHEMOGLOBIN 0.8 % (0-4); BLOOD GAS HCO3 27 mmol/L (22-26); BLOOD GAS METHEMOGLOBIN 1.1 % (0-2); BLOOD GAS O2 HGB SATURATION 96 % (90-100); BLOOD GAS OXYGEN CONTENT 15.2 Vol % (12.0-20.0); BLOOD GAS PCO2 44 mmHg (38-42); BLOOD GAS PO2 97 mmHg (61-120); BLOOD GAS TOTAL HGB 11.2 G/DL (12.0-16.0); CRITICAL VALUE NO; DRAW SITE ALINE; FIO2 35 %; OXYGEN DEVICE VENTILATOR; STAT NO; TEMP CORR TO 98.6; VENT SETTINGS A/C10/800/PEEP5
[2016-05-14] MEDS: fentaNYL DRIP 250 ML IV SCH (11:15)
[2016-05-14] MEDS: SODIUM CHLORIDE 0.9% FLUSH 5 ML FLUSH IV FLUSH SCH ×2 (12:13→21:00)
[2016-05-14] MEDS ORDERED: Vancomycin Consult Pharmacy 1 EA OTHER SCH (15:00)
--- NOTE | 2016-05-14 15:51 | PD.ID.CON ---
History of Present Illness Service ID Consult Requested By Reason for Consult Evaluation and Mment of gram positive bacteremia in a trauma patient. Primary Care Physician No Primary Care Physician Diagnoses: History of Present Illness Most of the history was obtained from review of medical records. Patient unresponsive. Reportedly patient homeless and no family can be traced. is a 51-year-old male with PMHx of hypercholestrolemia, hypertriglyceridemia, morbid obesity (per review of medical records was seen by in past in system once). Per EMS report, the patient was found down on a park bench, unresponsive, coarse respirations.EMS attempted to intubate the patient due to coarse respiration and not protecting airway, and were unsuccessful on scene. He was brought into the ED for unresponsiveness. No family or individuals were present to provide any history. Upon arrival his vitals in the ED were 183/101 but reportedly in the 200s by EMS. Patients HR on arrival was 79, T-95.3, RR 13. The patient was intubated in the ED. Patient was noted to be hypothermic, temperature 95.0, warming methods were initiated via IV fluid and Leslie Hugger. Imaging studies were performed in the ED, CT of the brain noted a large left parietal hemorrhage, neurosurgery was consulted. Dr. Turner evaluated the patient, and critical care medicine was consulted for treatment and management. The patient was then emergently transferred to the OR for evacuation of hematoma with right ventriculostomy placement. Procedures: Date of Surgery: May 13, 2016 Preoperative Diagnosis: Acute intracranial hemorrhage Procedure: 1. Left frontotemporal craniotomy-evacuation of large parenchymal intracranial hemorrhage 2. Right frontal twist drill for ventriculostomy catheter placement Blood cultures drawn on admission due to hypothermia and rule out sepsis indication are positive for pleomorphic gram positive rods. ID consulted for the same. Review of Systems ROS Limitations: Intubated, Altered Mental Status Past Family Social History Allergies: Coded Allergies: No Known Allergies (Unverified , 05/13/16) Past Medical History Hypercholestrolemia Hypertriglyceridemia Morbid Obesity Bilateral LE swelling was on Lasix. Chronic back pain was on Ibuprofen and recd IM steroids at PCP office. Gynecomastia. Past Surgical History Has a midline surgical scar on examination. Reported Medications Reported Meds & Active Scripts Active Active Prescriptions or Reported Medications Unobtainable Active Ordered Medications Current Medications Medications (Trade) Dose Ordered Sig/Cara Route Start Time Stop Time Status Last Admin (Diprivan 1000 Mg/100ml Inj) 100 ml @ 0 mls/hr TITRATE IV 05/13/16 08:45 05/14/16 13:59 (NS Flush) 2 ml UNSCH PRN IV FLUSH 05/13/16 13:15 (NS Flush) 2 ml BID IV FLUSH 05/13/16 21:00 05/14/16 12:13 (Tylenol) 650 mg Q6H PRN PO 05/13/16 13:15 (Protonix Inj) 40 mg DAILY IV 05/14/16 09:00 05/14/16 08:43 (Zofran Inj) 4 mg Q6H PRN IV 05/13/16 13:15 (Colace Liq) 100 mg Q12H G-TUBE 05/13/16 14:00 05/14/16 13:58 (Milk Of Magnesia Liq) 30 ml Q12H PRN PO 05/13/16 13:15 (Senna Liq) 17.6 mg Q12H PRN G-TUBE 05/13/16 13:15 Miscellaneous Information 1 Q361D XX 05/13/16 13:15 (Chlorhexidine 2% Cloth) 3 pack Taper DAILY@04 TOP 05/14/16 04:00 05/10/17 03:59 05/14/16 04:00 Chlorhexidine Gluconate 3 pack 3 pack UNSCH PRN TOP 05/13/16 13:15 Potassium Chloride 100 ml @ 50 mls/hr Q2H PRN IV 05/13/16 13:15 (KCl 20 Meq Premix Inj) 100 ml @ 50 mls/hr Q2H PRN IV 05/13/16 13:15 Potassium Chloride 40 meq 40 meq UNSCH PRN PO/TUBE 05/13/16 13:15 Potassium Chloride 100 ml @ 25 mls/hr UNSCH PRN IV 05/13/16 13:15 Potassium Chloride 100 ml @ 50 mls/hr Q2H PRN IV 05/13/16 13:15 (Magnesium Sulfate Inj/NS Inj) 100 ml @ 50 mls/hr UNSCH PRN IV 05/13/16 13:15 Magnesium Oxide 800 mg 800 mg UNSCH PRN PO 05/13/16 13:15 (Magnesium Sulfate Inj/NS Inj) 100 ml @ 50 mls/hr UNSCH PRN IV 05/13/16 13:15 Potassium Phosphate 2000 mg 2,000 mg Q4H PRN PO 05/13/16 13:15 (Sodium Phosphate Inj/NS 250 ml Inj) 250 ml @ 42 mls/hr UNSCH PRN IV 05/13/16 13:15 05/14/16 02:11 (KCl 40 Meq/30 ml Liq) 40 meq UNSCH PRN PO/TUBE 05/13/16 13:15 Potassium Phosphate 2000 mg 2,000 mg UNSCH PRN PO/TUBE 05/13/16 13:15 (Potassium Phosphate Inj/NS 250 ml Inj) 260 ml @ 42 mls/hr UNSCH PRN IV 05/13/16 13:15 (Peridex 0.12% Liq) 15 ml BID@08,20 MT 05/13/16 20:00 05/14/16 08:43 (D50w (Vial) Inj) 25 ml UNSCH PRN IV PUSH 05/13/16 13:15 (Glucagon Inj) 1 mg UNSCH PRN OTHER 05/13/16 13:15 Miscellaneous Information ALL NURSING DEPARTME... UNSCH PRN XX 05/13/16 17:09 05/14/16 17:08 Fentanyl Citrate 250 ml @ 0 mls/hr TITRATE IV 05/14/16 10:15 05/14/16 11:15 Sodium Chloride 1,000 ml @ 84 mls/hr [id number] IV 05/14/16 11:00 05/14/16 11:00 (Unasyn Inj/NS Inj) 100 ml @ 200 mls/hr Q6H IV 05/14/16 16:00 Family History Unknown Social History Reportedly homeless. Drug screen on admission was negative as well as alcohol undetectable. Physical Exam Vital Signs Vital Signs Date Time Temp Pulse Resp B/P Pulse Ox O2 Delivery O2 Flow Rate FiO2 05/14/16 13:48 99 35 05/14/16 12:06 100 35 05/14/16 11:51 99 35 05/14/16 10:44 99 35 05/14/16 08:00 97.6 90 13 144/78 99 05/14/16 08:00 99 Mechanical Ventilator 35 05/14/16 08:00 90 05/14/16 07:49 99 35 05/14/16 06:00 88 05/14/16 06:00 88 14 134/72 99 05/14/16 05:18 100 35 05/14/16 05:00 87 11 137/70 99 05/14/16 04:00 98.1 91 14 111/81 99 05/14/16 04:00 91 05/14/16 03:00 90 21 134/70 100 05/14/16 02:00 88 05/14/16 02:00 88 18 122/66 100 05/14/16 01:00 90 14 132/70 99 05/14/16 00:38 100 40 05/14/16 00:00 98.0 90 10 146/74 100 05/14/16 00:00 90 05/13/16 23:00 88 19 128/68 100 05/13/16 22:00 82 23 120/64 100 05/13/16 22:00 82 05/13/16 21:00 80 18 124/64 100 05/13/16 20:19 99 50 05/13/16 20:00 98.5 82 13 122/64 99 05/13/16 19:05 100 100 05/13/16 18:45 83 10 111/63 100 05/13/16 18:15 98.4 80 10 166/84 100 Mechanical Ventilator 50 133/66 05/13/16 18:00 78 10 163/87 100 Mechanical Ventilator 50 05/13/16 17:45 88 10 167/89 100 Mechanical Ventilator 50 05/13/16 17:30 86 15 169/85 100 Mechanical Ventilator 100 05/13/16 17:15 85 15 156/83 100 Mechanical Ventilator 100 05/13/16 17:04 100 100 05/13/16 17:00 98.0 90 15 144/76 100 Mechanical Ventilator 100 Physical Exam GENERAL: Morbidly obese AAM patient, in no apparent distress. SKIN: No rashes. Left IJ Central line with no e/o infection. HEAD: Left side ventric in place with sero-sanguinous drainage. [address] with sero-sanguinous discharge. EYES: No scleral icterus. No conj hemorrhage. ENT: Intubated. NECK: Trachea midline. Supple, nontender, no meningeal signs. CARDIOVASCULAR: HS audible. Gynecomastia RESPIRATORY: Clear to auscultation. Breath sounds equal bilaterally. GASTROINTESTINAL: Abdomen soft, non-tender, nondistended. Obese, Midline linear surgical scar. MUSCULOSKELETAL: Extremities without clubbing, cyanosis, or edema. NEUROLOGICAL: Non responsive. No response to deep painful stimuli. Psych could not be assessed. Laboratory Laboratory Tests Test 05/13/16 05/13/16 05/14/16 05/14/16 17:18 20:27 01:15 04:50 Blood Gas Puncture Site ART LINE Blood Gas Patient Temperature 98.6 Blood Gas HCO3 23 Blood Gas Base Excess -0.4 Blood Gas Oxygen Saturation 98 Arterial Blood pH 7.44 Arterial Blood Partial 35 Pressure CO2 Arterial Blood Partial 407 Pressure O2 Arterial Blood Oxygen Content 16.4 Arterial Blood 1.2 Carboxyhemoglobin Arterial Blood Methemoglobin 1.4 Blood Gas Hemoglobin 11.2 Oxygen Delivery Device VENTILATOR Blood Gas Ventilator Setting AC 800/10/+5PEEP Blood Gas Inspired Oxygen 100 White Blood Count 9.8 9.0 Red Blood Count 4.04 4.16 Hemoglobin 11.1 11.6 Hematocrit 33.0 33.7 Mean Corpuscular Volume 81.7 81.0 Mean Corpuscular Hemoglobin 27.6 27.9 Mean Corpuscular Hemoglobin 33.7 34.5 Concent Red Cell Distribution Width 14.5 14.6 Platelet Count 200 202 Mean Platelet Volume 7.6 7.4 Neutrophils (%) (Auto) 89.1 85.9 Lymphocytes (%) (Auto) 6.2 7.2 Monocytes (%) (Auto) 4.5 6.7 Eosinophils (%) (Auto) 0.0 0.0 Basophils (%) (Auto) 0.2 0.2 Neutrophils # (Auto) 8.8 7.8 Lymphocytes # (Auto) 0.6 0.7 Monocytes # (Auto) 0.4 0.6 Eosinophils # (Auto) 0.0 0.0 Basophils # (Auto) 0.0 0.0 CBC Comment DIFF FINAL DIFF FINAL Differential Comment Sodium Level 140 142 Potassium Level 4.0 4.0 Chloride Level 103 106 Carbon Dioxide Level 27.1 29.2 Anion Gap 10 7 Blood Urea Nitrogen 6 5 Creatinine 0.77 0.70 Estimat Glomerular Filtration 130 145 Rate Random Glucose 150 160 Lactic Acid Level 2.4 Calcium Level 7.6 7.9 Total Bilirubin 0.4 0.2 Aspartate Amino Transf 38 60 (AST/SGOT) Alanine Aminotransferase 22 24 (ALT/SGPT) Alkaline Phosphatase 70 65 Total Protein 6.7 6.9 Albumin 3.1 3.3 Random Cortisol 5.9 Urine Osmolality 88 Serum Osmolality 301 Prothrombin Time 11.4 Prothromb Time International 1.0 Ratio Activated Partial 27.9 Thromboplast Time Phosphorus Level 3.2 Magnesium Level 2.6 Direct Bilirubin 0.1 Indirect Bilirubin 0.1 Ammonia 16 Test 05/14/16 10:18 Blood Gas Puncture Site PETER Blood Gas Patient Temperature 98.6 Blood Gas HCO3 27 Blood Gas Base Excess 3.1 Blood Gas Oxygen Saturation 96 Arterial Blood pH 7.41 Arterial Blood Partial 44 Pressure CO2 Arterial Blood Partial 97 Pressure O2 Arterial Blood Oxygen Content 15.2 Arterial Blood 0.8 Carboxyhemoglobin Arterial Blood Methemoglobin 1.1 Blood Gas Hemoglobin 11.2 Oxygen Delivery Device VENTILATOR Blood Gas Ventilator Setting A/C10/800/PEEP5 Blood Gas Inspired Oxygen 35 Date/Time Procedure Status Source Growth 05/13/16 09:00 Aerobic Blood Culture - Preliminary Resulted Blood Peripheral Pleomorphic Gram Positive Rods 05/13/16 09:00 Anaerobic Blood Culture - Preliminary Resulted Blood Peripheral NO GROWTH IN 1 DAY Result Diagram: 05/14/16 0450 05/14/16 0115 Imaging Last Impressions Chest X-Ray 05/14/16 0000 Signed Impressions: Service Date/Time: Saturday, May 14, 2016 04:36 - CONCLUSION: No significant interval change. Tommy Gupta MD Head CT 05/13/16 0836 Signed Impressions: Service Date/Time: Friday, May 13, 2016 09:57 - CONCLUSION: 1. There is a large left parietal hemorrhage measuring 6.5 x 7.5 cm which has ruptured into the ventricular system. There is 2 cm of left to right falcine shift and some degree of downward herniation as well. Nomi Conti MD Neck CTA 05/13/16 0000 Signed Impressions: Service Date/Time: Friday, May 13, 2016 18:55 - CONCLUSION: 1. Examination negative for carotid stenosis. Minimal calcific plaque at the carotid bifurcations. Great vessel origins patent. Woo Hernandes MD Head CTA 05/13/16 0000 Signed Impressions: Service Date/Time: Friday, May 13, 2016 18:55 - CONCLUSION: 1. Questionable aneurysm versus focal extravasation of contrast around the distal left middle cerebral artery measuring up to 8 mm in diameter. This may be better evaluated angiographically. Intracranial vasospasm present. Woo Hernandes MD Assessment and Plan Assessment and Plan Acute intracranial hemorrhage. s/p Left frontotemporal craniotomy-evacuation of large parenchymal intracranial hemorrhage s/p Right frontal twist drill for ventriculostomy catheter placement. Gram positive bacteremia: likely contaminant based on the description and no of bottles positive. No signs of overt sepsis at present time. Possible Aspiration Pneumonia: AMS status on admission. Hypertensive Emergency on admission. Hypercholestrolemia Hypertriglyceridemia Homelessness as social factor. Morbid Obesity. Recs: Repeat Blood cultures x 2 2D ECHO with no vegetations. DC Vanco IV (if repeat blood cultures positive or overt signs of sepsis overnight ok to start Vanco IV). Start Unasyn IV (aspiration in community setting) Follow cultures Follow clinically. gini MEDRANO and . Nora Duff MD May 14, 2016 15:51
--- NOTE | 2016-05-14 15:56 | EC ---
Study Study Date:05/14/2016 STUDY CONCLUSIONS SUMMARY - Left ventricle: The cavity size was normal. Wall thickness was normal. Systolic function was normal. The estimated ejection fraction was in the range of 50% to 55%. Wall motion was normal; there were no regional wall motion abnormalities. - Aortic valve: Valve area: 2.96cm^2 (Vmax). If LV function is below 40, please consider prescribing an ACEI or ARB or document rationale for non-use. PROCEDURE DATA STUDY STATUS: Elective. Procedure: Transthoracic echocardiography. Image quality was poor. Scanning was performed from the parasternal acoustic windows. Study completion: The patient tolerated the procedure well. Transthoracic echocardiography. M-mode, complete 2D, complete spectral Doppler, and color Doppler. Height: Height: 72in. Weight: Weight: 351.3lb. Body mass index: BMI: 47.7kg/m^2. Body surface area: BSA: 2.71m^2. Patient status: Inpatient. CARDIAC ANATOMY LEFT VENTRICLE: The cavity size was normal. Wall thickness was normal. Systolic function was normal. The estimated ejection fraction was in the range of 50% to 55%. Wall motion was normal; there were no regional wall motion abnormalities. AORTIC VALVE: Not well visualized. Trileaflet; normal thickness leaflets. Doppler: Transvalvular velocity was within the normal range. There was no stenosis. No regurgitation. Valve area: 2.96cm^2 (Vmax). Indexed valve area: 1.09cm^2/m^2 (Vmax). AORTA: Aortic root: The aortic root was normal in size. MITRAL VALVE: Structurally normal valve. Doppler: Transvalvular velocity was within the normal range. There was no evidence for stenosis. No regurgitation. Peak gradient: 2mm Hg (D). LEFT ATRIUM: The atrium was normal in size. RIGHT VENTRICLE: The cavity size was normal. Wall thickness was normal. PULMONIC VALVE: Doppler: Transvalvular velocity was within the normal range. There was no evidence for stenosis. No regurgitation. TRICUSPID VALVE: Structurally normal valve. Doppler: Transvalvular velocity was within the normal range. No regurgitation. PULMONARY ARTERY: The main pulmonary artery was normal-sized. Systolic pressure was within the normal range. RIGHT ATRIUM: The atrium was normal in size. PERICARDIUM: There was no pericardial effusion. SYSTEMIC VEINS: Inferior vena cava: The vessel was normal in size. Patient weight: 351.3lb _Ejection fraction:_ 65-75% _Fractional shortening:_ 32% up to 5Kg 5-11.5Kg 11.6-22.9Kg 23-45Kg 45-57Kg Aortic Root 7-13 <17 13-22 17-27 17-27 LA diam 6-13 <23 24-38 33-47 37-40 RVID 10-17 7-15 7-15 7-18 8-17 LVIDd 12-22 <32 24-38 33-47 37-40 LVPW 2-4 3-6 5-7 6-8 7-8 IVS 2-4 3-6 5-7 6-8 7-8 BASIC MEASUREMENTS ADULT NORMAL Left ventricle LV internal dimension, ED, chordal *42.4 mm 43-52 level, PLAX LV internal dimension, ES, chordal 33.2 mm 23-38 level, PLAX Fractional shortening, chordal level, *22 % >29 PLAX LV posterior wall thickness, ED 9.43 mm IVS/LVPW ratio, ED 0.86 <1.3 Ventricular septum Septal thickness, ED 8.07 mm Aortic valve Leaflet separation 24 mm 15-26 BASIC MEASUREMENTS ADULT NORMAL Aortic valve Leaflet separation 24 mm 15-26 Aorta Root diameter, ED 33 mm 20-37 Left atrium Anterior-posterior dimension, ES 37 mm 19-40 Anterior-posterior dimension index, ES 1.37 cm/m^2 <2.2 LA/aortic root ratio 1.12 DOPPLER MEASUREMENTS ADULT NORMAL Aortic valve Peak velocity, S 107 cm/s Valve area, Vmax 2.96 cm^2 Valve area index, Vmax 1.09 cm^2/m^2 Mitral valve Peak E-wave velocity 72.1 cm/s Peak A-wave velocity 89.3 cm/s Deceleration time 183 ms 150-230 Peak gradient, D 2 mm Hg Peak E/A ratio 0.8 LEGEND: Mean values are shown as u=mean value. Asterisk (*) hsieh values outside specified normal range. Prepared and signed by Marilia Machuca [id number]
--- NOTE | 2016-05-14 16:40 | EKG ---
Date Performed: 05/13/2016 Time Performed: 11:54:46 PTAGE: 51 years EKG: Sinus rhythm NORMAL ECG NO PREVIOUS TRACING DOCTOR: Marilia Machuca Interpretating Date/Time 05/14/2016 16:35:32
[2016-05-14] MEDS ORDERED: VANCOMYCIN INJ 2,000 MG in SODIUM CHLORID 0.9% 500 ML INJ 500 ML IV SCH (17:00)
[2016-05-14] MEDS: AMPICILLIN-SULBACTAM INJ 1,500 MG in SODIUM CHLORIDE 0.9% INJ 100 ML IV SCH ×2 (17:18→21:33)
--- NOTE | 2016-05-14 20:12 | HHI.NSPN ---
History Chief Complaint: intubated Interval History 51-year-old male found unresponsive on park bench 05/13/16. Brought to [facility], unresponsive. Initial CT scan with large left frontal-temporal intracranial hemorrhage with nearly 2 cm midline shift. Positive intraventricular extension. Initial examination patient with positive corneal response, gag response, with mixed flexion and extensor posturing in the extremities. 05/13/16: Left Craniotomy for evacuation of intracranial hemorrhage. 05/14/16: Patient remains intubated, sedated. Stable vital signs. Low-grade temperature. Ventriculostomy functioning well Exam Results Vital Signs Date Time Temp Pulse Resp B/P Pulse Ox O2 Delivery O2 Flow Rate FiO2 05/14/16 18:00 79 05/14/16 16:46 99 35 05/14/16 16:00 94.6 15 133/76 05/14/16 08:00 Mechanical Ventilator 05/13/16 08:19 15 Intake and Output 05/13/16 05/13/16 05/14/16 08:00 16:00 00:00 Intake Total 3243 ml Output Total 1100 ml 3206 ml Balance -1100 ml 37 ml Physical Examination Respirations clear. Intubated Abdomen mildly distended, soft Cardiac regular without murmur Mild distal lower extremity edema No eye opening to voice or deep pain. Positive IV sedation. No response to pain all extremities Does not follow commands No spontaneous extremity movement Lab, Micro, Other Results Laboratory Tests Test 05/13/16 05/14/16 05/14/16 05/14/16 20:27 01:15 04:50 10:18 White Blood Count 9.8 TH/MM3 9.0 TH/MM3 Red Blood Count 4.04 MIL/MM3 4.16 MIL/MM3 Hemoglobin 11.1 GM/DL 11.6 GM/DL Hematocrit 33.0 % 33.7 % Mean Corpuscular Volume 81.7 FL 81.0 FL Mean Corpuscular Hemoglobin 27.6 PG 27.9 PG Mean Corpuscular Hemoglobin 33.7 % 34.5 % Concent Red Cell Distribution Width 14.5 % 14.6 % Platelet Count 200 TH/MM3 202 TH/MM3 Mean Platelet Volume 7.6 FL 7.4 FL Neutrophils (%) (Auto) 89.1 % 85.9 % Lymphocytes (%) (Auto) 6.2 % 7.2 % Monocytes (%) (Auto) 4.5 % 6.7 % Eosinophils (%) (Auto) 0.0 % 0.0 % Basophils (%) (Auto) 0.2 % 0.2 % Neutrophils # (Auto) 8.8 TH/MM3 7.8 TH/MM3 Lymphocytes # (Auto) 0.6 TH/MM3 0.7 TH/MM3 Monocytes # (Auto) 0.4 TH/MM3 0.6 TH/MM3 Eosinophils # (Auto) 0.0 TH/MM3 0.0 TH/MM3 Basophils # (Auto) 0.0 TH/MM3 0.0 TH/MM3 CBC Comment DIFF FINAL DIFF FINAL Differential Comment Sodium Level 140 MEQ/L 142 MEQ/L Potassium Level 4.0 MEQ/L 4.0 MEQ/L Chloride Level 103 MEQ/L 106 MEQ/L Carbon Dioxide Level 27.1 MEQ/L 29.2 MEQ/L Anion Gap 10 MEQ/L 7 MEQ/L Blood Urea Nitrogen 6 MG/DL 5 MG/DL Creatinine 0.77 MG/DL 0.70 MG/DL Estimat Glomerular Filtration 130 ML/MIN 145 ML/MIN Rate Random Glucose 150 MG/DL 160 MG/DL Lactic Acid Level 2.4 mmol/L Calcium Level 7.6 MG/DL 7.9 MG/DL Total Bilirubin 0.4 MG/DL 0.2 MG/DL Aspartate Amino Transf 38 U/L 60 U/L (AST/SGOT) Alanine Aminotransferase 22 U/L 24 U/L (ALT/SGPT) Alkaline Phosphatase 70 U/L 65 U/L Total Protein 6.7 GM/DL 6.9 GM/DL Albumin 3.1 GM/DL 3.3 GM/DL Random Cortisol 5.9 MCG/DL Urine Osmolality 88 MOSM/KG Serum Osmolality 301 MOSM/KG Prothrombin Time 11.4 SEC Prothromb Time International 1.0 RATIO Ratio Activated Partial 27.9 SEC Thromboplast Time Phosphorus Level 3.2 MG/DL Magnesium Level 2.6 MG/DL Direct Bilirubin 0.1 MG/DL Indirect Bilirubin 0.1 MG/DL Ammonia 16 MCMOL/L Thyroid Stimulating Hormone 0.137 uIU/ML 3rd Gen Blood Gas Puncture Site PETER Blood Gas Patient Temperature 98.6 Blood Gas HCO3 27 mmol/L Blood Gas Base Excess 3.1 mmol/L Blood Gas Oxygen Saturation 96 % Arterial Blood pH 7.41 Arterial Blood Partial 44 mmHg Pressure CO2 Arterial Blood Partial 97 mmHg Pressure O2 Arterial Blood Oxygen Content 15.2 Vol % Arterial Blood 0.8 % Carboxyhemoglobin Arterial Blood Methemoglobin 1.1 % Blood Gas Hemoglobin 11.2 G/DL Oxygen Delivery Device VENTILATOR Blood Gas Ventilator Setting A/C10/800/PEEP5 Blood Gas Inspired Oxygen 35 % Medical Decision Making Impression and Plan Impression: 1. Patient remains unresponsive following left craniotomy evacuation large intracranial hemorrhage with intraventricular extension. Plan: No family available for discussion of the patient's status and care decisions. Continuing ventilatory support. Discussed with radiology today-no definite evidence of intracranial vascular malformation or aneurysm. Continue ventriculostomy Non - chemical DVT prophylaxis Director Operations Broadcast following Len Turner MD May 14, 2016 20:12
[2016-05-15] VITALS (23 sets, daily range): BP systolic 108–130; BP diastolic 62–72; PULSE 74–94; RESP 10–18; TEMP 97.2–99.3; O2SAT 97–100
[2016-05-15] MEDS: SODIUM CHLOR 0.9% 1000 ML INJ 1,000 ML IV SCH ×2 (00:36→15:15)
[2016-05-15] MEDS: PROPOFOL 1000 MG/100 ML INJ 100 ML IV SCH ×6 (01:42→13:50)
[2016-05-15] MEDS: DOCUSATE SODIUM 100 MG/10 ML UDC G-TUBE SCH ×2 (02:14→13:50)
[2016-05-15] MEDS: AMPICILLIN-SULBACTAM INJ 1,500 MG in SODIUM CHLORIDE 0.9% INJ 100 ML IV SCH ×4 (03:18→21:41)
--- NOTE | 2016-05-15 03:53 | RADRPT ---
EXAM DATE/TIME: 05/15/2016 02:45 [facility] COMPARISON: CHEST SINGLE AP, May 14, 2016, 4:36. INDICATIONS : Respiratory failure MEDICAL HISTORY : Unknown SURGICAL HISTORY : Unknown ENCOUNTER: Subsequent ACUITY: 4 - 6 days PAIN SCORE: Non-responsive. LOCATION: Bilateral chest FINDINGS: The support devices remain in place. There is no evidence of pneumothorax. There is mild stable atele ctasis in the right mid and right lower lung. The left lung remains clear. There are no pleural effus ions. Heart size is stable. No significant changes compared to the prior study. CONCLUSION: Stable scattered areas of atelectasis in the right lung. Otherwise, no other new or significant matos es. Tommy Gupta MD on May 15, 2016 at 3:50 Board Certified Radiologist. This report was verified electronically.
[2016-05-15] MEDS: CHLORHEXIDINE GLUCONATE 2 % 1 PACK (2 CLOTHS) TOP SCH (04:00)
[2016-05-15] MEDS: RESP: ALBUTEROL 2.5 MG/IPRATROPIUM 0.5 MG NEB (SCH) INH ×4 (04:03→20:08)
[2016-05-15 04:22] LABS: MEAN CELL VOLUME 82.7 FL (80.0-100.0); MEAN CORPUSCULAR HEMOGLOBIN 27.2 PG (27.0-34.0); MEAN CORPUSCULAR HGB CONC 32.9 % (32.0-36.0); PLATELET COUNT 192 TH/MM3 (150-450); RED BLOOD COUNT 3.99 MIL/MM3 (4.50-5.90); RED CELL DISTRIBUTION WIDTH 14.9 % (11.6-17.2); REVIEW FLAG FINAL; WHITE BLOOD COUNT 7.9 TH/MM3 (4.0-11.0)
[2016-05-15] MEDS ORDERED: LIDOCAINE HCL 2% 100 MG/5 ML SYRINGE ONE (04:37)
[2016-05-15] MEDS ORDERED: EPINEPHrine HCL (1:10,000) 1 MG/10 ML SYRINGE ONE (04:37)
[2016-05-15 04:52] LABS: BICARBONATE 33.3 MEQ/L (21.0-32.0); POTASSIUM 3.8 MEQ/L (3.5-5.1)
--- NOTE | 2016-05-15 05:44 | RADRPT ---
EXAM DATE/TIME: 05/15/2016 04:50 [facility] COMPARISON: CT BRAIN W/O CONTRAST, May 13, 2016, 9:57. INDICATIONS : Follow up hemorrhage. Post op ventricular drain. RADIATION DOSE: 65.59 CTDIvol (mGy) MEDICAL HISTORY : Non-responsive. SURGICAL HISTORY : Non-responsive. ENCOUNTER: Initial ACUITY: 1 day PAIN SCALE: Non-responsive LOCATION: cranial TECHNIQUE: Multiple contiguous axial images were obtained of the head. Using automated exposure control and adj ustment of the mA and/or kV according to patient size, radiation dose was kept as low as reasonably a chievable to obtain optimal diagnostic quality images. FINDINGS: The patient is status post a left-sided craniotomy with intracranial surgery. There is a drain noted in the left mid parietal area in the location of the previously noted large acute intraparenchymal he morrhage. The hemorrhage is still present but has decreased in size now measuring 5.4 x 2.6 cm. There continues to be extensive intraventricular hemorrhage. There continues to be mass effect and midline shift to the right by 1.6 cm. Intracranial air is present characteristic of recent surgery. There is a right-sided ventricular catheter in place. There is subarachnoid hemorrhage along the left cerebra l hemisphere. There is effacement of the sulci along the left cerebral vertex characteristic of edema . The craniotomy flap appears to be in good position. There is fluid in the maxillary and ethmoid sin uses. CONCLUSION: 1. Status post left craniotomy with placement of a drain in the previously noted large acute intrapar enchymal hemorrhage in the left mid parietal area. The large hemorrhage has decreased in size compare d to the prior study. 2. There continues to be prominent mass effect and midline shift to the right by 1.6 cm. This maybe m ildly improved compared to the prior study when it was measured at 2.0 cm. 3. There continues to be extensive and diffuse intraventricular hemorrhage. 4. There continues to be cerebral edema in the left cerebral hemisphere. 5. There is intracranial air characteristic of recent surgery. Tommy Gupta MD on May 15, 2016 at 5:37 Board Certified Radiologist. This report was verified electronically.
[2016-05-15 05:47] LABS: BLOOD GAS BASE EXCESS 3.5 mmol/L (-2-2); BLOOD GAS CARBOXYHEMOGLOBIN 0.8 % (0-4); BLOOD GAS HCO3 28 mmol/L (22-26); BLOOD GAS O2 HGB SATURATION 95 % (90-100); BLOOD GAS OXYGEN CONTENT 19.6 Vol % (12.0-20.0); BLOOD GAS PCO2 44 mmHg (38-42); BLOOD GAS PO2 88 mmHg (61-120); BLOOD GAS TOTAL HGB 14.7 G/DL (12.0-16.0); TEMP CORR TO 98.6
[2016-05-15 05:48] LABS: CRITICAL VALUE NO; DRAW SITE ART LINE; FIO2 35 %; OXYGEN DEVICE VENTILATOR; STAT NO; VENT SETTINGS VAC10/500/PEEP5
[2016-05-15] MEDS: INSULIN ASPART SUPPLEMENTAL SCALE SQ SCH ×4 (07:00→21:00)
[2016-05-15] MEDS: CHLORHEXIDINE 0.12% (ORAL KIT) 15 ML CUP MT SCH ×2 (07:43→20:00)
[2016-05-15] MEDS: PANTOPRAZOLE SODIUM 40 MG VIAL IV SCH (07:43)
[2016-05-15] MEDS: SODIUM CHLORIDE 0.9% FLUSH 5 ML FLUSH IV FLUSH SCH ×2 (07:43→21:00)
--- NOTE | 2016-05-15 07:58 | HHI.CCPN ---
Subjective Remarks/Hospital Course 51-year-old morbidly obese male ,with unknown medical history, presented to the ED this am. Per EMS report, the patient was found down on a park bench, unresponsive, coarse respirations.EMS attempted to intubate the patient due to coarse respiration and not protecting airway, and were unsuccessful on scene. He was brought into the ED for unresponsiveness. No family or individuals were present to provide any history. The patient was intubated in the ED. Patient was noted to be hypothermic, temperature 95.0, warming methods were initiated via IV fluid and Leslie Hugger. Imaging studies were performed in the ED, T of the brain noted a large left parietal hemorrhage , neurosurgery was consulted. Dr. Turner evaluated the patient, and critical care medicine was consulted for treatment and management. The patient was then emergently transferred to the OR for evacuation of hematoma with right ventriculostomy placement. 05/14 Afebrile. The patient is status post evacuation of large left frontal temporal ICH. Overnight the patient had increasing urinary output, approximately 4006 100 cc/hr, for approximately 3 hours with resolution of polyuria. The patient remains sedated on propofol infusion. Cerebral perfusion pressures have been 60-86, throughout the night. 05/15 The patient became hypothermic yesterday afternoon, temperature 95.0 requiring supplemental heat with Bairhugger . Initial blood culture revealed gram-positive pleomorphic rods, ID was consulted, Dr. Duff and patient was placed on Unasyn. Repeat CT head this a.m. shows continued mass effect. CPP remains 6580. Objective Vital Signs Date Time Temp Pulse Resp B/P Pulse Ox O2 Delivery O2 Flow Rate FiO2 05/15/16 06:00 81 05/15/16 04:35 100 100 05/15/16 04:00 97.9 15 108/62 05/14/16 19:00 Mechanical Ventilator 05/13/16 08:19 15 Intake and Output 05/14/16 05/14/16 05/15/16 08:00 16:00 00:00 Intake Total 490 ml 692 ml 1303 ml Output Total 3675 ml 1310 ml 1800 ml Balance -3185 ml -618 ml -497 ml Result Diagram: 05/15/16 0410 05/15/16 0410 Other Results Laboratory Tests Test 05/14/16 05/15/16 10:18 05:33 Blood Gas Puncture Site PETER ART LINE Blood Gas Patient Temperature 98.6 98.6 Blood Gas HCO3 27 mmol/L 28 mmol/L (22-26) (22-26) Blood Gas Base Excess 3.1 mmol/L 3.5 mmol/L (-2-2) (-2-2) Blood Gas Oxygen Saturation 96 % (90-100) 95 % (90-100) Arterial Blood pH 7.41 7.42 (7.380-7.420) (7.380-7.420) Arterial Blood Partial 44 mmHg (38-42) 44 mmHg (38-42) Pressure CO2 Arterial Blood Partial 97 mmHg 88 mmHg Pressure O2 (61-120) (61-120) Arterial Blood Oxygen Content 15.2 Vol % 19.6 Vol % (12.0-20.0) (12.0-20.0) Arterial Blood 0.8 % (0-4) 0.8 % (0-4) Carboxyhemoglobin Arterial Blood Methemoglobin 1.1 % (0-2) 1.0 % (0-2) Blood Gas Hemoglobin 11.2 G/DL 14.7 G/DL (12.0-16.0) (12.0-16.0) Oxygen Delivery Device VENTILATOR VENTILATOR Blood Gas Ventilator Setting A/C10/800/PEEP5 VAC10/500/PEEP5 Blood Gas Inspired Oxygen 35 % 35 % Imaging Last [address] 05/15/16 0600 Signed Impressions: Service Date/Time: Sunday, May 15, 2016 04:50 - CONCLUSION: 1. Status post left craniotomy with placement of a drain in the previously noted large acute intraparenchymal hemorrhage in the left mid parietal area. The large hemorrhage has decreased in size compared to the prior study. 2. There continues to be prominent mass effect and midline shift to the right by 1.6 cm. This maybe mildly improved compared to the prior study when it was measured at 2.0 cm. 3. There continues to be extensive and diffuse intraventricular hemorrhage. 4. There continues to be cerebral edema in the left cerebral hemisphere. 5. There is intracranial air characteristic of recent surgery. Tommy Gupta MD Chest X-Ray 05/15/16 0600 Signed Impressions: Service Date/Time: Sunday, May 15, 2016 02:45 - CONCLUSION: Stable scattered areas of atelectasis in the right lung. Otherwise, no other new or significant changes. Tommy Gupta MD Last Impressions Head CT 05/13/16835 Signed Impressions: Service Date/Time: Friday, May 13, 2016 09:57 - CONCLUSION: 1. There is a large left parietal hemorrhage measuring 6.5 x 7.5 cm which has ruptured into the ventricular system. There is 2 cm of left to right falcine shift and some degree of downward herniation as well. Nomi Conti MD Chest X-Ray 05/13/16835 Signed Impressions: Service Date/Time: Friday, May 13, 2016 08:42 - CONCLUSION: 1. ET tube in good position. 2. Widening of the mediastinum. CT imaging of the thorax with contrast is warranted for further assessment. Nomi Conti MD Objective Remarks GENERAL: Super morbidly obese male intubated and sedated. SKIN: Warm and dry. HEAD: Atraumatic. Normocephalic. 2 ANDRÉS drains serosanguineous fluid, ICP monitor ,gauze dressing C/D/I EYES: Pupils equal and round. Pupils 3 mm, cannot assess reactivity No scleral icterus. No injection or drainage. ENT: No nasal bleeding or discharge. Mucous membranes pink and moist. Orotracheally intubated NECK: Trachea midline. Unable to assess JVD, secondary to body habitus. CARDIOVASCULAR: Normal rate, regular rhythm. S1,S2 RESPIRATORY: No accessory muscle use. Clear to auscultation. Breath sounds equal bilaterally. GASTROINTESTINAL: Abdomen soft, non-tender, nondistended. No guarding. OGT to low intermittent wall suction. MUSCULOSKELETAL: Extremities without clubbing, cyanosis, or edema. No obvious deformities. NEUROLOGICAL: GCS 3T. Intubated sedated propofol, fentanyl infusions Urinary Catheter: Yes Concepcion insert reason: Measure Accurate Output Date of Insertion: May 13, 2016 Date of Insertion: May 13, 2016 Line: Central Venous Catheter Side: Left Location: Subclavian (monitor CVP. Administration of vasoactive medications.) Reason for Continuation Monitoring, and medication administration A/P Assessment and Plan Plan by systems: Neurologic: Large left frontal temporal hemorrhage with midline shift S/P craniotomy evacuation of left frontotemporal hemorrhage, and ventriculostomy placement POD #1 Unresponsiveness -Patient continues on on propofol for sedation. GCS 3T, will add fentanyl infusion for pain control if needed. -CPP trend 65-85 -Maintain systolic blood pressure less than 150mmHg -ANDRÉS drain #1,#2 serosanguineous fluid -ICP 5-7 -CT brain 05/13-large left parietal hemorrhage measuring 6.5 x 7.5 cm which has ruptured into the ventricular system. 2 cm of [id number] falcine shift and some downward herniation -CT brain 05/15-prominent mass effect 1.6 cm midline shift to the right, diffuse intraventricular hemorrhage, cerebral edema left hemisphere -Neurosurgery on board, Dr Turner follow-up recommendations Respiratory: Hypoxic and hypercarbic respiratory failure -Mechanical ventilation, AC mode 10/550/5/0.35 -Maintain O2 sat greater than 92% -Scheduled bronchodilators every 6 hours, and every 2 hours when necessary -CXR -atelectasis Cardiovascular: Hypertension -Maintain MAP > 65 mmHg, -Consider vasopressor support, if needed postoperatively to maintain CPP -Maintain systolic blood pressure less than 150mmHg Renal: Polyuria-resolved -Maintain Concepcion -Urine output 75 cc/hour average -- Strict I/Os , monitor and documentation of hourly urinary output per urometer FEN/GI: Morbid obesity Hypophosphatemia -OGT to LIWS -Begin tube feeds, follow-up cutter inspector (consult) recommendations -Monitor BMP -Continue 0.9 normal saline at 84 cc/hour -Replete electrolytes per ICU protocol -Protonix GI prophylaxis -Zofran for nausea -Bowel regimen Heme/ID: -Monitor CBC -Follow-up blood culture results 05/14 -Gram positive Pleomorphic rods begin empiric coverage, F/U speciation -ID consult-Dr. Duff -Repeat blood cultures per ID [id number]/1484-[id number]-ag results, patient placed on Unasyn -Obtain Sputum culture, legionella urine antigen , Influenza A&B, Pneumococcal antigen Endocrine: -Glucose monitoring every 6 hours per ICU protocol - TSH 0.137 -- SSI Prophylaxis: GI Prophylaxis Protonix IV DVT Prophylaxis -- SCDs No pharmacological DVT prophylaxis will defer to neurosurgery, when clinically indicated Lines: Peripheral IVs x2 . Central line left subclavian, left radial a line OR, 05/13 Dispo: I telephoned sister, Kristen Amador and provided an update from time of admission, until today. Sister unaware patient was hospitalized. All questions answered. Discussed with GAS DISTRIBUTION PLANT OPERATOR at bedside This patient remains critically ill with one or more organ systems which are or may become a threat to life. I have spent in excess of 54 minutes discontinuously in the care and management of this patient. This time is exclusive of procedures, and includes, but is not limited to, evaluation of the patient, review of the medical record, discussions with family, consultants, nursing staff, or respiratory therapy, and documentation in the medical record. Physician Sheree Deal MD May 15, 2016 07:58
--- NOTE | 2016-05-15 10:26 | HHI.IDPN ---
Subjective Subjective Remarks is a 51-year-old male with PMHx of hypercholestrolemia, hypertriglyceridemia, morbid obesity. Apr admitted with acute intracranial hemorrhage and underwent Left frontotemporal craniotomy-evacuation of large parenchymal intracranial hemorrhage, and right frontal twist drill for ventriculostomy catheter placement. Patient had hypothermia on admission and sepsis workup initiated. ID consulted for gram positive bacteremia. Overnight events reviewed. Period of hypothermia on Leslie hugger. No rash No diarrhea Pupils now reactive. Antibiotics Unasyn IV Lines Line sites with no e/o infection. Past Medical History reviewed Allergies: Coded Allergies: No Known Allergies (Unverified , 05/13/16) Objective . Vital Signs Date Time Temp Pulse Resp B/P Pulse Ox O2 Delivery O2 Flow Rate FiO2 05/15/16 07:58 99 35 05/15/16 06:00 81 05/15/16 04:35 100 100 05/15/16 04:15 98 35 05/15/16 04:00 35 05/15/16 04:00 83 05/15/16 04:00 97.9 83 15 108/62 99 05/15/16 03:00 89 15 110/66 97 05/15/16 02:00 94 05/15/16 02:00 94 15 122/71 97 05/15/16 01:25 100 35 05/15/16 01:00 92 15 115/66 97 05/15/16 00:00 97.3 94 16 130/72 97 05/15/16 00:00 94 05/15/16 00:00 35 05/14/16 22:00 84 05/14/16 21:09 98 35 05/14/16 20:00 35 05/14/16 20:00 96.3 81 16 116/67 98 05/14/16 20:00 81 05/14/16 19:00 98 Mechanical Ventilator 35 05/14/16 18:00 79 05/14/16 16:46 99 35 05/14/16 16:00 81 05/14/16 16:00 94.6 81 15 133/76 100 05/14/16 14:00 82 05/14/16 13:48 99 35 05/14/16 12:06 100 35 05/14/16 12:00 97.6 87 15 145/78 99 05/14/16 12:00 87 05/14/16 11:51 99 35 05/14/16 10:44 99 35 05/14/16 05/14/16 05/15/16 15:00 23:00 07:00 Intake Total 692 ml 1303 ml 1110 ml Output Total 1310 ml 1800 ml 613 ml Balance -618 ml -497 ml 497 ml Intake IV Total 270 ml 1303 ml 1110 ml Lipid 422 ml Output Urine Total 950 ml 1475 ml 495 ml Gastric Drainage Total 200 ml 150 ml 50 ml Drainage Total 160 ml 175 ml 68 ml # Bowel Movements 0 0 0 . Laboratory Tests Test 05/13/16 05/14/16 05/15/16 20:27 04:50 04:10 White Blood Count 9.8 TH/MM3 9.0 TH/MM3 7.9 TH/MM3 Red Blood Count 4.04 MIL/MM3 4.16 MIL/MM3 3.99 MIL/MM3 Hemoglobin 11.1 GM/DL 11.6 GM/DL 10.9 GM/DL Hematocrit 33.0 % 33.7 % 33.0 % Mean Corpuscular Volume 81.7 FL 81.0 FL 82.7 FL Mean Corpuscular Hemoglobin 27.6 PG 27.9 PG 27.2 PG Mean Corpuscular Hemoglobin 33.7 % 34.5 % 32.9 % Concent Red Cell Distribution Width 14.5 % 14.6 % 14.9 % Platelet Count 200 TH/MM3 202 TH/MM3 192 TH/MM3 Mean Platelet Volume 7.6 FL 7.4 FL 7.3 FL Neutrophils (%) (Auto) 89.1 % 85.9 % Lymphocytes (%) (Auto) 6.2 % 7.2 % Monocytes (%) (Auto) 4.5 % 6.7 % Eosinophils (%) (Auto) 0.0 % 0.0 % Basophils (%) (Auto) 0.2 % 0.2 % Neutrophils # (Auto) 8.8 TH/MM3 7.8 TH/MM3 Lymphocytes # (Auto) 0.6 TH/MM3 0.7 TH/MM3 Monocytes # (Auto) 0.4 TH/MM3 0.6 TH/MM3 Eosinophils # (Auto) 0.0 TH/MM3 0.0 TH/MM3 Basophils # (Auto) 0.0 TH/MM3 0.0 TH/MM3 CBC Comment DIFF FINAL DIFF FINAL Differential Comment Laboratory Tests Test 05/13/16 05/13/16 05/14/16 05/14/16 12:00 20:27 01:15 04:50 Lactic Acid Level 4.1 mmol/L 2.4 mmol/L Sodium Level 140 MEQ/L 142 MEQ/L Potassium Level 4.0 MEQ/L 4.0 MEQ/L Chloride Level 103 MEQ/L 106 MEQ/L Carbon Dioxide Level 27.1 MEQ/L 29.2 MEQ/L Anion Gap 10 MEQ/L 7 MEQ/L Blood Urea Nitrogen 6 MG/DL 5 MG/DL Creatinine 0.77 MG/DL 0.70 MG/DL Estimat Glomerular Filtration 130 ML/MIN 145 ML/MIN Rate Random Glucose 150 MG/DL 160 MG/DL Calcium Level 7.6 MG/DL 7.9 MG/DL Total Bilirubin 0.4 MG/DL 0.2 MG/DL Aspartate Amino Transf 38 U/L 60 U/L (AST/SGOT) Alanine Aminotransferase 22 U/L 24 U/L (ALT/SGPT) Alkaline Phosphatase 70 U/L 65 U/L Total Protein 6.7 GM/DL 6.9 GM/DL Albumin 3.1 GM/DL 3.3 GM/DL Random Cortisol 5.9 MCG/DL Serum Osmolality 301 MOSM/KG Phosphorus Level 3.2 MG/DL Magnesium Level 2.6 MG/DL Direct Bilirubin 0.1 MG/DL Indirect Bilirubin 0.1 MG/DL Ammonia 16 MCMOL/L Thyroid Stimulating Hormone 0.137 uIU/ML 3rd Gen Test 05/15/16 04:10 Sodium Level 147 MEQ/L Potassium Level 3.8 MEQ/L Chloride Level 111 MEQ/L Carbon Dioxide Level 33.3 MEQ/L Anion Gap 3 MEQ/L Blood Urea Nitrogen 7 MG/DL Creatinine 0.74 MG/DL Estimat Glomerular Filtration 136 ML/MIN Rate Random Glucose 113 MG/DL Calcium Level 8.3 MG/DL Phosphorus Level 2.9 MG/DL Magnesium Level 3.0 MG/DL Microbiology Date/Time Procedure Status Source Growth 05/13/16 08:45 Aerobic Blood Culture - Preliminary Resulted Blood Peripheral NO GROWTH IN 1 DAY 05/13/16 08:45 Anaerobic Blood Culture - Preliminary Resulted Blood Peripheral NO GROWTH IN 1 DAY 05/13/16 09:00 Aerobic Blood Culture - Preliminary Resulted Blood Peripheral Pleomorphic Gram Positive Rods 05/13/16 09:00 Anaerobic Blood Culture - Preliminary Resulted Blood Peripheral NO GROWTH IN 1 DAY 05/14/16 16:20 Aerobic Blood Culture Received Blood Peripheral Pending 05/14/16 16:20 Anaerobic Blood Culture Received Blood Peripheral Pending 05/14/16 16:25 Aerobic Blood Culture Received Blood Peripheral Pending 05/14/16 16:25 Anaerobic Blood Culture Received Blood Peripheral Pending 05/14/16 21:50 Gram Stain Received Sputum Endotracheal Pending 05/14/16 21:50 Sputum Culture Received Sputum Endotracheal Pending 05/15/16 04:15 Legionella Antigen - Final Complete Urine Catheterized Urine PRESUMPTIVE NEGATIVE FOR LEGIONELLA P... 05/15/16 04:15 Streptococcus pneumoniae Antigen (M Received Urine Catheterized Urine Pending Imaging Last Impressions Head CT 05/15/16 0600 Signed Impressions: Service Date/Time: Sunday, May 15, 2016 04:50 - CONCLUSION: 1. Status post left craniotomy with placement of a drain in the previously noted large acute intraparenchymal hemorrhage in the left mid parietal area. The large hemorrhage has decreased in size compared to the prior study. 2. There continues to be prominent mass effect and midline shift to the right by 1.6 cm. This maybe mildly improved compared to the prior study when it was measured at 2.0 cm. 3. There continues to be extensive and diffuse intraventricular hemorrhage. 4. There continues to be cerebral edema in the left cerebral hemisphere. 5. There is intracranial air characteristic of recent surgery. Tommy Gupta MD Chest X-Ray 05/15/16 0600 Signed Impressions: Service Date/Time: Sunday, May 15, 2016 02:45 - CONCLUSION: Stable scattered areas of atelectasis in the right lung. Otherwise, no other new or significant changes. Tommy Gupta MD Neck CTA 05/13/16 0000 Signed Impressions: Service Date/Time: Friday, May 13, 2016 18:55 - CONCLUSION: 1. Examination negative for carotid stenosis. Minimal calcific plaque at the carotid bifurcations. Great vessel origins patent. Woo Hernandes MD Head CTA 05/13/16 0000 Signed Impressions: Service Date/Time: Friday, May 13, 2016 18:55 - CONCLUSION: 1. Questionable aneurysm versus focal extravasation of contrast around the distal left middle cerebral artery measuring up to 8 mm in diameter. This may be better evaluated angiographically. Intracranial vasospasm present. Woo Hernandes MD Physical Exam GENERAL: Morbidly obese AAM patient, in no apparent distress. SKIN: No rashes. Left IJ Central line with no e/o infection. HEAD: Left side ventric in place with sero-sanguinous drainage. [address] with sero-sanguinous discharge. EYES: No scleral icterus. No conj hemorrhage. ENT: Intubated. NECK: Trachea midline. Supple, nontender, no meningeal signs. CARDIOVASCULAR: HS audible. Gynecomastia RESPIRATORY: Clear to auscultation. Breath sounds equal bilaterally. GASTROINTESTINAL: Abdomen soft, non-tender, nondistended. Obese, Midline linear surgical scar. MUSCULOSKELETAL: Extremities without clubbing, cyanosis, or edema. NEUROLOGICAL: Non responsive. No response to deep painful stimuli. Psych could not be assessed. Assessment & Plan Remarks Acute intracranial hemorrhage. s/p Left frontotemporal craniotomy-evacuation of large parenchymal intracranial hemorrhage s/p Right frontal twist drill for ventriculostomy catheter placement. Gram positive bacteremia: likely contaminant based on the description and no of bottles positive. No signs of overt sepsis at present time. Possible Aspiration Pneumonia: AMS status on admission. Hypertensive Emergency on admission. Hypercholestrolemia Hypertriglyceridemia Homelessness as social factor. Morbid Obesity. Recs: Repeat Blood cultures x 2 2D ECHO with no vegetations. Continue Unasyn IV (aspiration in community setting) Follow cultures Follow clinically. gini MEDRANO and . Nora Duff MD May 15, 2016 10:26
[2016-05-15] MEDS: MIDAZOLAM 100 MG/ML INJ 100 ML IV SCH (14:41)
[2016-05-15] MEDS: fentaNYL DRIP 250 ML IV SCH (15:12)
[2016-05-15] MEDS ORDERED: TERBUTALINE INJ 1 MG/ML AMP SQ PRN (17:15)
[2016-05-15 17:31] LABS: BLOOD GAS BASE EXCESS 2.4 mmol/L (-2-2); BLOOD GAS CARBOXYHEMOGLOBIN 0.9 % (0-4); BLOOD GAS HCO3 27 mmol/L (22-26); BLOOD GAS O2 HGB SATURATION 94 % (90-100); BLOOD GAS OXYGEN CONTENT 13.9 Vol % (12.0-20.0); BLOOD GAS PCO2 48 mmHg (38-42); BLOOD GAS PO2 88 mmHg (61-120); BLOOD GAS TOTAL HGB 10.4 G/DL (12.0-16.0); CRITICAL VALUE NO; DRAW SITE ART LINE; FIO2 35 %; NUMBER OF ARTERIAL PUNCTURES 0; OXYGEN DEVICE VENTILATOR; STAT NO; TEMP CORR TO 98.6; ULNAR PULSE PRESENT; VENT SETTINGS AC/16/550/PEEP5
[2016-05-15] MEDS: PHENYLEPHRINE INJ 40 MG in DEXTROSE 5% IN WATE 500 ML INJ 496 ML IV SCH ×2 (17:32)
[2016-05-15 22:32] LABS: BLOOD GAS BASE EXCESS 2.4 mmol/L (-2-2); BLOOD GAS HCO3 26 mmol/L (22-26); BLOOD GAS METHEMOGLOBIN 0.9 % (0-2); BLOOD GAS O2 HGB SATURATION 95 % (90-100); BLOOD GAS OXYGEN CONTENT 13.9 Vol % (12.0-20.0); BLOOD GAS PCO2 36 mmHg (38-42); BLOOD GAS PO2 83 mmHg (61-120); BLOOD GAS TOTAL HGB 10.3 G/DL (12.0-16.0); CRITICAL VALUE NO; OXYGEN DEVICE VENTILATOR; TEMP CORR TO 98.6
[2016-05-15 22:33] LABS: DRAW SITE ART LINE; FIO2 35 %; STAT NO; VENT SETTINGS VAC18/650/PEEP5
[2016-05-16] VITALS (18 sets, daily range): BP systolic 120–162; BP diastolic 63–84; PULSE 56–82; RESP 18–20; TEMP 97.9–98.8; O2SAT 97–100
[2016-05-16] MEDS: MIDAZOLAM 100 MG/ML INJ 100 ML IV SCH ×3 (00:10→23:30)
[2016-05-16] MEDS: SODIUM CHLOR 0.9% 1000 ML INJ 1,000 ML IV SCH ×4 (00:26→20:48)
[2016-05-16] MEDS ORDERED: SODIUM CHLORID 0.9% 500 ML INJ 500 ML IV ONE ×2 (01:15→04:30)
[2016-05-16] MEDS: DOCUSATE SODIUM 100 MG/10 ML UDC G-TUBE SCH ×2 (01:48→14:08)
[2016-05-16] MEDS: AMPICILLIN-SULBACTAM INJ 1,500 MG in SODIUM CHLORIDE 0.9% INJ 100 ML IV SCH ×4 (03:10→20:56)
[2016-05-16] MEDS: CHLORHEXIDINE GLUCONATE 2 % 1 PACK (2 CLOTHS) TOP SCH (04:00)
[2016-05-16] MEDS: RESP: ALBUTEROL 2.5 MG/IPRATROPIUM 0.5 MG NEB (SCH) INH ×4 (04:07→20:15)
[2016-05-16] MEDS ORDERED: PHARMACY ORDERED LAB XX ONE (04:45)
[2016-05-16] MEDS: fentaNYL DRIP 250 ML IV SCH ×2 (06:29→21:28)
[2016-05-16] MEDS: INSULIN ASPART SUPPLEMENTAL SCALE SQ SCH ×4 (07:00→20:56)
[2016-05-16] MEDS ORDERED: SODIUM CHLOR 0.9% 1000 ML INJ 1,000 ML IV ONE ×3 (07:00→14:00)
[2016-05-16 07:08] LABS: HEMATOCRIT 29.6 % (39.0-51.0); MEAN CELL VOLUME 82.7 FL (80.0-100.0); MEAN CORPUSCULAR HEMOGLOBIN 27.9 PG (27.0-34.0); MEAN CORPUSCULAR HGB CONC 33.7 % (32.0-36.0); PLATELET COUNT 196 TH/MM3 (150-450); RED BLOOD COUNT 3.58 MIL/MM3 (4.50-5.90); REVIEW FLAG FINAL
[2016-05-16 07:36] LABS: MAGNESIUM 2.8 MG/DL (1.5-2.5); POTASSIUM 3.1 MEQ/L (3.5-5.1)
[2016-05-16] MEDS: CHLORHEXIDINE 0.12% (ORAL KIT) 15 ML CUP MT SCH ×2 (08:09→20:48)
[2016-05-16] MEDS: PHENYLEPHRINE INJ 40 MG in DEXTROSE 5% IN WATE 500 ML INJ 496 ML IV SCH ×4 (08:10→17:52)
--- NOTE | 2016-05-16 08:17 | RADRPT ---
EXAM DATE/TIME: 05/16/2016 07:14 [facility] COMPARISON: CHEST SINGLE AP, May 15, 2016, 2:45. INDICATIONS : Respiratory failure. MEDICAL HISTORY : None. SURGICAL HISTORY : None. ENCOUNTER: Subsequent ACUITY: 1 week PAIN SCORE: Non-responsive. LOCATION: Bilateral chest FINDINGS: Portable AP views of the chest demonstrate a normal size cardiac silhouette. Endotracheal tube tip me asures 2.4 cm from the gregor, left subclavian central line tip is in the SVC and nasogastric tube is looped in the stomach. Lungs are underinflated and there is airspace consolidation at the left lung base and atelectasis at the right lung base. No pleural effusion or pneumothorax is visualized. Bones demonstrate no acute finding. CONCLUSION: Stable chest x-ray with mild airspace consolidation at the left lung base and atelectasis at the righ t lung base. Jose De Jesus Sheffield MD on May 16, 2016 at 8:14 Board Certified Radiologist. This report was verified electronically.
[2016-05-16] MEDS: SODIUM CHLORIDE 0.9% FLUSH 5 ML FLUSH IV FLUSH SCH ×2 (08:25→20:49)
[2016-05-16] MEDS: PANTOPRAZOLE SODIUM 40 MG VIAL IV SCH (08:25)
[2016-05-16 09:38] LABS: BLOOD GAS BASE EXCESS 1.2 mmol/L (-2-2); BLOOD GAS CARBOXYHEMOGLOBIN 0.8 % (0-4); BLOOD GAS HCO3 25 mmol/L (22-26); BLOOD GAS METHEMOGLOBIN 0.9 % (0-2); BLOOD GAS O2 HGB SATURATION 96 % (90-100); BLOOD GAS OXYGEN CONTENT 20.8 Vol % (12.0-20.0); BLOOD GAS PCO2 37 mmHg (38-42); BLOOD GAS PO2 105 mmHg (61-120); BLOOD GAS TOTAL HGB 15.3 G/DL (12.0-16.0); CRITICAL VALUE NO; DRAW SITE ART LINE; FIO2 35 %; OXYGEN DEVICE VENTILATOR; TEMP CORR TO 98.6; VENT SETTINGS AC/650/18/PEEP5
[2016-05-16 09:39] LABS: STAT NO
--- NOTE | 2016-05-16 11:04 | HHI.NSPN ---
History Chief Complaint: intubated Interval History 51-year-old male found unresponsive on park bench 05/13/16. Brought to [facility], unresponsive. Initial CT scan with large left frontal-temporal intracranial hemorrhage with nearly 2 cm midline shift. Positive intraventricular extension. Initial examination patient with positive corneal response, gag response, with mixed flexion and extensor posturing in the extremities. 05/13/16: Left Craniotomy for evacuation of intracranial hemorrhage. 05/14/16: Patient remains intubated, sedated. Stable vital signs. Low-grade temperature. Ventriculostomy functioning well 05/16/16: Intubated, stable vital signs. Scalp drains removed, ventriculostomy remains patent Exam Results Vital Signs Date Time Temp Pulse Resp B/P Pulse Ox O2 Delivery O2 Flow Rate FiO2 05/16/16 08:25 100 35 05/16/16 08:00 63 05/16/16 07:00 Mechanical Ventilator 05/16/16 04:00 98.8 19 120/63 05/13/16 08:19 15 Intake and Output 05/15/16 05/15/16 05/16/16 08:00 16:00 00:00 Intake Total 1110 ml 865 ml 1328 ml Output Total 613 ml 1345 ml 1075 ml Balance 497 ml -480 ml 253 ml Physical Examination Respirations clear. Intubated Abdomen mildly distended, soft Cardiac regular without murmur Mild distal lower extremity edema No eye opening to voice or deep pain. Pupils 3 mm nonreactive Mild bilateral corneal response No grimacing to deep pain No response to pain all extremities Does not follow commands No spontaneous extremity movement Lab, Micro, Other Results Laboratory Tests Test 05/15/16 05/15/16 05/16/16 05/16/16 17:08 22:05 06:20 07:10 Blood Gas Puncture Site ART LINE ART LINE Blood Gas Patient Temperature 98.6 98.6 Blood Gas HCO3 27 mmol/L 26 mmol/L Blood Gas Base Excess 2.4 mmol/L 2.4 mmol/L Blood Gas Oxygen Saturation 94 % 95 % Arterial Blood pH 7.37 7.47 Arterial Blood Partial 48 mmHg 36 mmHg Pressure CO2 Arterial Blood Partial 88 mmHg 83 mmHg Pressure O2 Arterial Blood Oxygen Content 13.9 Vol % 13.9 Vol % Arterial Blood 0.9 % 1.0 % Carboxyhemoglobin Arterial Blood Methemoglobin 1.0 % 0.9 % Blood Gas Hemoglobin 10.4 G/DL 10.3 G/DL Oxygen Delivery Device VENTILATOR VENTILATOR Blood Gas Ventilator Setting AC/16/550/PEEP5 VAC18/650/PEEP5 Blood Gas Inspired Oxygen 35 % 35 % White Blood Count 8.0 TH/MM3 Red Blood Count 3.58 MIL/MM3 Hemoglobin 10.0 GM/DL Hematocrit 29.6 % Mean Corpuscular Volume 82.7 FL Mean Corpuscular Hemoglobin 27.9 PG Mean Corpuscular Hemoglobin 33.7 % Concent Red Cell Distribution Width 15.0 % Platelet Count 196 TH/MM3 Mean Platelet Volume 7.7 FL Sodium Level 150 MEQ/L Potassium Level 3.1 MEQ/L Chloride Level 115 MEQ/L Carbon Dioxide Level 28.0 MEQ/L Anion Gap 7 MEQ/L Blood Urea Nitrogen 11 MG/DL Creatinine 0.75 MG/DL Estimat Glomerular Filtration 134 ML/MIN Rate Random Glucose 123 MG/DL Calcium Level 7.8 MG/DL Phosphorus Level 2.0 MG/DL Magnesium Level 2.8 MG/DL Urine Osmolality 889 MOSM/KG Urine Random Creatinine 418.8 MG/DL Urine Random Sodium 122 MEQ/L Test 05/16/16 09:21 Blood Gas Puncture Site ART LINE Blood Gas Patient Temperature 98.6 Blood Gas HCO3 25 mmol/L Blood Gas Base Excess 1.2 mmol/L Blood Gas Oxygen Saturation 96 % Arterial Blood pH 7.44 Arterial Blood Partial 37 mmHg Pressure CO2 Arterial Blood Partial 105 mmHg Pressure O2 Arterial Blood Oxygen Content 20.8 Vol % Arterial Blood 0.8 % Carboxyhemoglobin Arterial Blood Methemoglobin 0.9 % Blood Gas Hemoglobin 15.3 G/DL Oxygen Delivery Device VENTILATOR Blood Gas Ventilator Setting AC/650/18/PEEP5 Blood Gas Inspired Oxygen 35 % Medical Decision Making Impression and Plan Impression: 1. Patient remains unresponsive following left craniotomy evacuation large intracranial hemorrhage with intraventricular extension. 05/15/16 follow-up CT scan with moderate residual parenchymal intracranial and intraventricular hemorrhage but decreased midline shift. Plan: Scalp drains removed today Continuing ventilatory support. Continue ventriculostomy Non - chemical DVT prophylaxis [employer] following Discussed with nursing staff. The patient's sister portably did come to the hospital yesterday and indicated that she desires continued full supportive care. Len Turner MD May 16, 2016 11:04
[2016-05-16] MEDS ORDERED: LACTATED RINGER'S 1000 ML INJ 1,000 ML IV ONE (15:15)
[2016-05-16 15:24] LABS: BICARBONATE 27.4 MEQ/L (21.0-32.0); POTASSIUM 3.2 MEQ/L (3.5-5.1)
--- NOTE | 2016-05-16 15:27 | HHI.CCPN ---
Subjective Remarks/Hospital Course 51-year-old morbidly obese male ,with unknown medical history, presented to the ED this am. Per EMS report, the patient was found down on a park bench, unresponsive, coarse respirations.EMS attempted to intubate the patient due to coarse respiration and not protecting airway, and were unsuccessful on scene. He was brought into the ED for unresponsiveness. No family or individuals were present to provide any history. The patient was intubated in the ED. Patient was noted to be hypothermic, temperature 95.0, warming methods were initiated via IV fluid and Leslie Hugger. Imaging studies were performed in the ED, T of the brain noted a large left parietal hemorrhage , neurosurgery was consulted. Dr. Turner evaluated the patient, and critical care medicine was consulted for treatment and management. The patient was then emergently transferred to the OR for evacuation of hematoma with right ventriculostomy placement. 05/14 Afebrile. The patient is status post evacuation of large left frontal temporal ICH. Overnight the patient had increasing urinary output, approximately 910325 cc/hr, for approximately 3 hours with resolution of polyuria. The patient remains sedated on propofol infusion. Cerebral perfusion pressures have been 60-86, throughout the night. 05/15 The patient became hypothermic yesterday afternoon, temperature 95.0 requiring supplemental heat with Bairhugger . Initial blood culture revealed gram-positive pleomorphic rods, ID was consulted, Dr. Duff and patient was placed on Unasyn. Repeat CT head this a.m. shows continued mass effect. CPP remains 6580. 05/16 No change in neurological evaluation with cessation of sedation. ANDRÉS drains were removed this a.m.. ICPs became elevated yesterday afternoon requiring Versed and Fentanyl infusion. Last evening, the patient required addition of phenylephrine to maintain adequate MAP. Overnight, the patient's urine output was decreased, the patient received 1 L bolus of normal saline. Objective Vital Signs Date Time Temp Pulse Resp B/P Pulse Ox O2 Delivery O2 Flow Rate FiO2 05/16/16 12:00 35 05/16/16 12:00 68 05/16/16 12:00 98.4 18 135/71 100 Automatic Cuff 05/16/16 07:00 Mechanical Ventilator 05/13/16 08:19 15 Intake and Output 05/15/16 05/15/16 05/16/16 08:00 16:00 00:00 Intake Total 1110 ml 865 ml 1328 ml Output Total 613 ml 1345 ml 1075 ml Balance 497 ml -480 ml 253 ml Result Diagram: 05/16/1661905/16/16619 Other Results Microbiology Date/Time Procedure Status Source Growth 05/14/16 21:50 Gram Stain - Final Complete Sputum Endotracheal 05/14/16 21:50 Sputum Culture - Final Complete Sputum Endotracheal NO GROWTH IN 48 HOURS. 05/15/16 04:15 Legionella Antigen - Final Complete Urine Catheterized Urine PRESUMPTIVE NEGATIVE FOR LEGIONELLA P... 05/15/16 04:15 Streptococcus pneumoniae Antigen (M - Final Complete Urine Catheterized Urine 05/15/16 04:15 - Final Complete Other Laboratory Tests Test 05/15/16 05/15/16 05/16/16 17:08 22:05 09:21 Blood Gas Puncture Site ART LINE ART LINE ART LINE Blood Gas Patient Temperature 98.6 98.6 98.6 Blood Gas HCO3 27 mmol/L 26 mmol/L 25 mmol/L (22-26) (22-26) (22-26) Blood Gas Base Excess 2.4 mmol/L 2.4 mmol/L 1.2 mmol/L (-2-2) (-2-2) (-2-2) Blood Gas Oxygen Saturation 94 % (90-100) 95 % (90-100) 96 % (90-100) Arterial Blood pH 7.37 7.47 7.44 (7.380-7.420) (7.380-7.420) (7.380-7.420) Arterial Blood Partial 48 mmHg (38-42) 36 mmHg (38-42) 37 mmHg (38-42) Pressure CO2 Arterial Blood Partial 88 mmHg 83 mmHg 105 mmHg Pressure O2 (61-120) (61-120) (61-120) Arterial Blood Oxygen Content 13.9 Vol % 13.9 Vol % 20.8 Vol % (12.0-20.0) (12.0-20.0) (12.0-20.0) Arterial Blood 0.9 % (0-4) 1.0 % (0-4) 0.8 % (0-4) Carboxyhemoglobin Arterial Blood Methemoglobin 1.0 % (0-2) 0.9 % (0-2) 0.9 % (0-2) Blood Gas Hemoglobin 10.4 G/DL 10.3 G/DL 15.3 G/DL (12.0-16.0) (12.0-16.0) (12.0-16.0) Oxygen Delivery Device VENTILATOR VENTILATOR VENTILATOR Blood Gas Ventilator Setting AC/16/550/PEEP5 VAC18/650/PEEP5 AC/650/18/PEEP5 Blood Gas Inspired Oxygen 35 % 35 % 35 % Imaging Last [address] 05/15/16599 Signed Impressions: Service Date/Time: Sunday, May 15, 2016 04:50 - CONCLUSION: 1. Status post left craniotomy with placement of a drain in the previously noted large acute intraparenchymal hemorrhage in the left mid parietal area. The large hemorrhage has decreased in size compared to the prior study. 2. There continues to be prominent mass effect and midline shift to the right by 1.6 cm. This maybe mildly improved compared to the prior study when it was measured at 2.0 cm. 3. There continues to be extensive and diffuse intraventricular hemorrhage. 4. There continues to be cerebral edema in the left cerebral hemisphere. 5. There is intracranial air characteristic of recent surgery. Tommy Gupta MD Chest X-Ray 05/15/16599 Signed Impressions: Service Date/Time: Sunday, May 15, 2016 02:45 - CONCLUSION: Stable scattered areas of atelectasis in the right lung. Otherwise, no other new or significant changes. Tommy Gupta MD Last Impressions Head CT 05/13/16835 Signed Impressions: Service Date/Time: Friday, May 13, 2016 09:57 - CONCLUSION: 1. There is a large left parietal hemorrhage measuring 6.5 x 7.5 cm which has ruptured into the ventricular system. There is 2 cm of left to right falcine shift and some degree of downward herniation as well. Nomi Conti MD Chest X-Ray 05/13/16835 Signed Impressions: Service Date/Time: Friday, May 13, 2016 08:42 - CONCLUSION: 1. ET tube in good position. 2. Widening of the mediastinum. CT imaging of the thorax with contrast is warranted for further assessment. Nomi Conti MD Objective Remarks GENERAL: Super morbidly obese male intubated and sedated. SKIN: Warm and dry. HEAD: Atraumatic. Normocephalic. 2 ANDRÉS drains serosanguineous fluid, ICP monitor ,gauze dressing C/D/I EYES: Pupils equal and round. Pupils 3 mm, no reactivity. No scleral icterus. No injection or drainage. ENT: No nasal bleeding or discharge. Mucous membranes pink and moist. Orotracheally intubated NECK: Trachea midline. Unable to assess JVD, secondary to body habitus. CARDIOVASCULAR: Normal rate, regular rhythm. S1,S2 RESPIRATORY: No accessory muscle use. Clear to auscultation. Breath sounds equal bilaterally. GASTROINTESTINAL: Abdomen soft, non-tender, nondistended. No guarding. OGT tube feeds infusing MUSCULOSKELETAL: Extremities without clubbing, cyanosis, or edema. No obvious deformities. NEUROLOGICAL: GCS 3T. Intubated sedated Versed and fentanyl infusions to maintain adequate ICP Urinary Catheter: Yes Concepcion insert reason: Measure Accurate Output Date of Insertion: May 13, 2016 Date of Insertion: May 13, 2016 Line: Central Venous Catheter Side: Left Location: Subclavian (monitor CVP. Administration of vasoactive medications.) A/P Assessment and Plan This is a 51-year-old morbidly obese male, found down, unresponsive, with shallow respirations, hypoxia for unknown period of time. Upon presentation to the ED, initial exam GCS 3, with stents or posturing on the right to deep pain, and no pupillary response. The patient was found to have a large ICH, status post evacuation. Plan by systems: Neurologic: Large left frontal temporal hemorrhage with midline shift S/P craniotomy evacuation of left frontotemporal hemorrhage, and ventriculostomy placement POD #1 Unresponsiveness -Midazolam and fentanyl infusion GCS 3T -Patient vacation per ICU protocol, occasional spontaneous ventilations, flaccidity -CPP trend 65-85 -Maintain systolic blood pressure less than 150mmHg-requiring Phenylephrine -ANDRÉS drains removed this a.m. -ICP 7-18 -CT brain 05/13-large left parietal hemorrhage measuring 6.5 x 7.5 cm which has ruptured into the ventricular system. 2 cm of [id number] falcine shift and some downward herniation -CT brain 05/15-prominent mass effect 1.6 cm midline shift to the right, diffuse intraventricular hemorrhage, cerebral edema left hemisphere -Neurosurgery on board, Dr Turner follow-up recommendations Respiratory: Hypoxic and hypercarbic respiratory failure -Mechanical ventilation, AC mode 20/550/5/0.35 -Maintain O2 sat greater than 92% -Scheduled bronchodilators every 6 hours, and every 2 hours when necessary -Maintain end-tidal CO2 30-35 Cardiovascular: H/O Hypertension Hypotension -Maintain MAP > 65 mmHg, phenylephrine currently at 50 mcgs -maintain CPP> 60 -ECHO 05/14- EF50-55%, no RWMA -Maintain systolic blood pressure less than 150mmHg - Obtain BNP -Apply Flotrac, monitor SVV,CVP Renal: SIADH Prerenal Azotemia -Maintain Concepcion -Decreased urinary output, FENA 0.15 -Urinary labs obtained urine osmole-889,Urine Na 122meq/L,Urine creatinine 418 -- Strict I/Os , monitor and documentation of hourly urinary output per urometer , in view of elevated urine osmole, urine sodium in the setting of hypotension requiring vasopressor support , possibly hypovolemia, though admission TSH was low, will repeat and obtain cortisol level to ensure is not a mineralocorticoid deficiency, plasma osmolality, uric acid, and BNP. FEN/GI: Morbid obesity Hypophosphatemia-resolved -OGT -Tube feeds- Vital Hi Protein 40cc/hr with goal rate of 65 -Monitor BMP -Continue 0.9 normal saline at 150 cc/hour -Bolus LR , monitor CVP, Flotrac-trend SVV -Replete electrolytes per ICU protocol -Protonix GI prophylaxis -Zofran for nausea -Bowel regimen Heme/ID: -Monitor CBC -Follow-up blood culture results 05/14 -Gram positive Pleomorphic rods begin empiric coverage, F/U speciation -Urine 05/15 - positive Strep Pneumo Antigen -ID consult-Dr. Duff -Repeat blood cultures per ID 05/1444-jwyglj-sm results, patient placed on Unasyn -Obtain Sputum culture, legionella urine antigen , Influenza A&B, Endocrine: -Glucose monitoring every 6 hours per ICU protocol - TSH 0.137 -- SSI Prophylaxis: GI Prophylaxis Protonix IV DVT Prophylaxis -- SCDs No pharmacological DVT prophylaxis will defer to neurosurgery, when clinically indicated Lines: Peripheral IVs x 2 . Central line left subclavian, left radial a line OR, 05/13 Dispo: Discussed with family, poor prognosis, with no meaningful recovery- family wishes to discuss goals of care. Palliative care consult initiated. I talked to Niece, and the patient's 2 sisters and provided them with patient status. Family requests family meeting with palliative care team tomorrow. All questions answered. Discussed with [employer] at bedside This patient remains critically ill with one or more organ systems which are or may become a threat to life. I have spent in excess of 59 minutes discontinuously in the care and management of this patient. This time is exclusive of procedures, and includes, but is not limited to, evaluation of the patient, review of the medical record, discussions with family, consultants, nursing staff, or respiratory therapy, and documentation in the medical record. Physician Sheree Deal MD May 16, 2016 15:27
[2016-05-16] MEDS: POTASSIUM CHLOR 40 MEQ PREMIX 100 ML IV PRN ×2 (17:37→17:38)
[2016-05-16] MEDS: ARTIFICIAL TEARS OPTH OINT 3.5 APPLIC/3.5 GM TUBO EACH EYE SCH (17:45)
[2016-05-17] VITALS (17 sets, daily range): BP systolic 120–176; BP diastolic 59–86; PULSE 81–98; RESP 20–29; TEMP 97.2–98.4; O2SAT 97–100
[2016-05-17] MEDS: DOCUSATE SODIUM 100 MG/10 ML UDC G-TUBE SCH ×2 (01:28→14:43)
[2016-05-17] MEDS: RESP: ALBUTEROL 2.5 MG/IPRATROPIUM 0.5 MG NEB (SCH) INH ×4 (03:42→20:43)
[2016-05-17] MEDS: AMPICILLIN-SULBACTAM INJ 1,500 MG in SODIUM CHLORIDE 0.9% INJ 100 ML IV SCH ×4 (05:15→20:56)
[2016-05-17] MEDS: CHLORHEXIDINE GLUCONATE 2 % 1 PACK (2 CLOTHS) TOP SCH (05:16)
[2016-05-17] MEDS: SODIUM CHLOR 0.9% 1000 ML INJ 1,000 ML IV SCH ×4 (05:17→20:57)
[2016-05-17 05:45] LABS: BASOPHIL % 0.6 % (0.0-2.0); EOSINOPHIL # 0.2 TH/MM3 (0-0.4); EOSINOPHIL % 2.7 % (0.0-4.0); HEMATOCRIT 28.3 % (39.0-51.0); HEMO FLAGS DIFF FINAL; LYMPH % 14.5 % (9.0-44.0); LYMPHOCYTE # 1.2 TH/MM3 (1.0-4.8); MEAN CELL VOLUME 82.2 FL (80.0-100.0); MEAN CORPUSCULAR HEMOGLOBIN 27.6 PG (27.0-34.0); MEAN CORPUSCULAR HGB CONC 33.6 % (32.0-36.0); MONO % 11.9 % (0.0-8.0); NEUT % 70.3 % (16.0-70.0); PLATELET COUNT 206 TH/MM3 (150-450); RED BLOOD COUNT 3.44 MIL/MM3 (4.50-5.90); RED CELL DISTRIBUTION WIDTH 14.7 % (11.6-17.2); WHITE BLOOD COUNT 8.5 TH/MM3 (4.0-11.0)
[2016-05-17 06:15] LABS: BICARBONATE 25.4 MEQ/L (21.0-32.0); POTASSIUM 3.5 MEQ/L (3.5-5.1)
[2016-05-17] MEDS: INSULIN ASPART SUPPLEMENTAL SCALE SQ SCH ×4 (07:00→21:00)
[2016-05-17 08:10] LABS: BLOOD GAS BASE EXCESS -2.1 mmol/L (-2-2); BLOOD GAS HCO3 22 mmol/L (22-26); BLOOD GAS METHEMOGLOBIN 0.8 % (0-2); BLOOD GAS O2 HGB SATURATION 95 % (90-100); BLOOD GAS OXYGEN CONTENT 13.6 Vol % (12.0-20.0); BLOOD GAS PCO2 39 mmHg (38-42); BLOOD GAS PO2 92 mmHg (61-120); BLOOD GAS TOTAL HGB 10.1 G/DL (12.0-16.0); CRITICAL VALUE NO; OXYGEN DEVICE VENTILATOR; TEMP CORR TO 98.6
[2016-05-17 08:11] LABS: DRAW SITE ART LINE; FIO2 35 %; STAT NO; VENT SETTINGS AC/20/650/PEEP 5
--- NOTE | 2016-05-17 08:17 | RADRPT ---
EXAM DATE/TIME: 05/17/2016 07:50 [facility] COMPARISON: CHEST SINGLE AP, May 16, 2016, 7:14. INDICATIONS : Respiratory failure. MEDICAL HISTORY : None. SURGICAL HISTORY : None. ENCOUNTER: Subsequent ACUITY: 1 week PAIN SCORE: Non-responsive. LOCATION: Bilateral chest FINDINGS: 2 portable frontal views of the chest show breathing motion artifact. An endotracheal tube is observe d. The tip is difficult to see due to obscuration by the spine. It is felt to be 1 cm cephalad to the gregor. Left subclavian central line noted. Tip towards the cavoatrial junction. Nasogastric tube ti p is in the fundus of the stomach. Bibasilar parenchymal opacities are grossly unchanged from the miguel or study. Tiny posterior layering pleural effusions suspected. CONCLUSION: 1. Lines and tubes. 2. Bibasilar parenchymal opacities are grossly unchanged from the prior exam. They are limited in kayla luation due to motion artifact. 3. Questionable small posterior layering pleural effusions. Pa Greer Jr., MD on May 17, 2016 at 8:12 Board Certified Radiologist. This report was verified electronically.
--- NOTE | 2016-05-17 08:36 | HHI.CCPN ---
Subjective Remarks/Hospital Course 51-year-old morbidly obese male ,with unknown medical history, presented to the ED this am. Per EMS report, the patient was found down on a park bench, unresponsive, coarse respirations.EMS attempted to intubate the patient due to coarse respiration and not protecting airway, and were unsuccessful on scene. He was brought into the ED for unresponsiveness. No family or individuals were present to provide any history. The patient was intubated in the ED. Patient was noted to be hypothermic, temperature 95.0, warming methods were initiated via IV fluid and Leslie Hugger. Imaging studies were performed in the ED, T of the brain noted a large left parietal hemorrhage , neurosurgery was consulted. Dr. Turner evaluated the patient, and critical care medicine was consulted for treatment and management. The patient was then emergently transferred to the OR for evacuation of hematoma with right ventriculostomy placement. 05/14 Afebrile. The patient is status post evacuation of large left frontal temporal ICH. Overnight the patient had increasing urinary output, approximately 242730 cc/hr, for approximately 3 hours with resolution of polyuria. The patient remains sedated on propofol infusion. Cerebral perfusion pressures have been 60-86, throughout the night. 05/15 The patient became hypothermic yesterday afternoon, temperature 95.0 requiring supplemental heat with Bairhugger . Initial blood culture revealed gram-positive pleomorphic rods, ID was consulted, Dr. Duff and patient was placed on Unasyn. Repeat CT head this a.m. shows continued mass effect. CPP remains 6580. 05/16 No change in neurological evaluation with cessation of sedation. ANDRÉS drains were removed this a.m.. ICPs became elevated yesterday afternoon requiring Versed and Fentanyl infusion. Last evening, the patient required addition of phenylephrine to maintain adequate MAP. Overnight, the patient's urine output was decreased, the patient received 1 L bolus of normal saline. 05/17 Afebrile. Resolution of oliguria, the patient remains on phenylephrine for vasopressor support. ICPs stable overnight, the patient continues on Versed and fentanyl infusions. Cessation of all sedation, reveals no change in neurological evaluation, pupils nonreactive, flaccid to deep pain stimulation, spontaneous ventilations over mechanical ventilation. Extensive discussion with family yesterday, family on aware of events leading up to admission to hospital. Family informed of poor prognosis, palliative care consult initiated for discussion of goals of care. Objective Vital Signs Date Time Temp Pulse Resp B/P Pulse Ox O2 Delivery O2 Flow Rate FiO2 05/17/16 08:14 35 05/17/16 07:49 97 05/17/16 06:00 97 05/17/16 04:00 98.4 20 134/74 05/16/16 07:00 Mechanical Ventilator 05/13/16 08:19 15 Intake and Output 05/16/16 05/16/16 05/17/16 08:00 16:00 00:00 Intake Total 2280 ml 3509 ml 4994 ml Output Total 309 ml 316 ml 879 ml Balance 1971 ml 3193 ml 4115 ml Result Diagram: 05/17/16 0530 05/17/16 0530 Other Results Microbiology Date/Time Procedure Status Source Growth 05/14/16 21:50 Gram Stain - Final Complete Sputum Endotracheal 05/14/16 21:50 Sputum Culture - Final Complete Sputum Endotracheal NO GROWTH IN 48 HOURS. 05/15/16 04:15 Legionella Antigen - Final Complete Urine Catheterized Urine PRESUMPTIVE NEGATIVE FOR LEGIONELLA P... 05/15/16 04:15 Streptococcus pneumoniae Antigen (M - Final Complete Urine Catheterized Urine 05/15/16 04:15 - Final Complete Other Laboratory Tests Test 05/16/16 05/17/16 09:21 07:56 Blood Gas Puncture Site ART LINE ART LINE Blood Gas Patient Temperature 98.6 98.6 Blood Gas HCO3 25 mmol/L 22 mmol/L (22-26) (22-26) Blood Gas Base Excess 1.2 mmol/L -2.1 mmol/L (-2-2) (-2-2) Blood Gas Oxygen Saturation 96 % (90-100) 95 % (90-100) Arterial Blood pH 7.44 7.37 (7.380-7.420) (7.380-7.420) Arterial Blood Partial 37 mmHg (38-42) 39 mmHg (38-42) Pressure CO2 Arterial Blood Partial 105 mmHg 92 mmHg Pressure O2 (61-120) (61-120) Arterial Blood Oxygen Content 20.8 Vol % 13.6 Vol % (12.0-20.0) (12.0-20.0) Arterial Blood 0.8 % (0-4) 1.0 % (0-4) Carboxyhemoglobin Arterial Blood Methemoglobin 0.9 % (0-2) 0.8 % (0-2) Blood Gas Hemoglobin 15.3 G/DL 10.1 G/DL (12.0-16.0) (12.0-16.0) Oxygen Delivery Device VENTILATOR VENTILATOR Blood Gas Ventilator Setting AC/650/18/PEEP5 AC/20/650/PEEP 5 Blood Gas Inspired Oxygen 35 % 35 % Imaging Last Impressions Chest X-Ray 05/16/16 0000 Signed Impressions: Service Date/Time: April 07:14 - CONCLUSION: Stable chest x-ray with mild airspace consolidation at the left lung base and atelectasis at the right lung base. Jose De Jesus Sheffield MD Head CT 05/15/16 0600 Signed Impressions: Service Date/Time: Sunday, May 15, 2016 04:50 - CONCLUSION: 1. Status post left craniotomy with placement of a drain in the previously noted large acute intraparenchymal hemorrhage in the left mid parietal area. The large hemorrhage has decreased in size compared to the prior study. 2. There continues to be prominent mass effect and midline shift to the right by 1.6 cm. This maybe mildly improved compared to the prior study when it was measured at 2.0 cm. 3. There continues to be extensive and diffuse intraventricular hemorrhage. 4. There continues to be cerebral edema in the left cerebral hemisphere. 5. There is intracranial air characteristic of recent surgery. Tommy Gupta MD Neck CTA 05/13/16 0000 Signed Impressions: Service Date/Time: Friday, May 13, 2016 18:55 - CONCLUSION: 1. Examination negative for carotid stenosis. Minimal calcific plaque at the carotid bifurcations. Great vessel origins patent. Woo Hernandes MD Head CTA 05/13/16 0000 Signed Impressions: Service Date/Time: Friday, May 13, 2016 18:55 - CONCLUSION: 1. Questionable aneurysm versus focal extravasation of contrast around the distal left middle cerebral artery measuring up to 8 mm in diameter. This may be better evaluated angiographically. Intracranial vasospasm present. Woo Hernandes MD Last [address] 05/15/16 0600 Signed Impressions: Service Date/Time: Sunday, May 15, 2016 04:50 - CONCLUSION: 1. Status post left craniotomy with placement of a drain in the previously noted large acute intraparenchymal hemorrhage in the left mid parietal area. The large hemorrhage has decreased in size compared to the prior study. 2. There continues to be prominent mass effect and midline shift to the right by 1.6 cm. This maybe mildly improved compared to the prior study when it was measured at 2.0 cm. 3. There continues to be extensive and diffuse intraventricular hemorrhage. 4. There continues to be cerebral edema in the left cerebral hemisphere. 5. There is intracranial air characteristic of recent surgery. Tommy Gupta MD Chest X-Ray 05/15/16 0600 Signed Impressions: Service Date/Time: Sunday, May 15, 2016 02:45 - CONCLUSION: Stable scattered areas of atelectasis in the right lung. Otherwise, no other new or significant changes. Tommy Gupta MD Last Impressions Head CT 05/13/1636 Signed Impressions: Service Date/Time: Friday, May 13, 2016 09:57 - CONCLUSION: 1. There is a large left parietal hemorrhage measuring 6.5 x 7.5 cm which has ruptured into the ventricular system. There is 2 cm of left to right falcine shift and some degree of downward herniation as well. Nomi Conit MD Chest X-Ray 05/13/1636 Signed Impressions: Service Date/Time: Friday, May 13, 2016 08:42 - CONCLUSION: 1. ET tube in good position. 2. Widening of the mediastinum. CT imaging of the thorax with contrast is warranted for further assessment. Nomi Conti MD Objective Remarks GENERAL: Super morbidly obese male intubated and sedated. SKIN: Warm and dry. HEAD: Atraumatic. Normocephalic. 2 ANDRÉS drains serosanguineous fluid, ICP monitor ,gauze dressing C/D/I EYES: Pupils equal and round. Pupils no reactivity.Mild conjunctival edema B/ L. + corneal reflex right eye. No scleral icterus. No injection or drainage. ENT: No nasal bleeding or discharge. Mucous membranes pink and moist. Orotracheally intubated NECK: Trachea midline. Unable to assess JVD, secondary to body habitus. CARDIOVASCULAR: Normal rate, regular rhythm. S1,S2 RESPIRATORY: No accessory muscle use. Clear to auscultation. Breath sounds equal bilaterally. GASTROINTESTINAL: Abdomen soft, non-tender, nondistended. No guarding. Old well -healed midline surgical scar noted . OGT tube feeds infusing MUSCULOSKELETAL: Extremities without clubbing, cyanosis, or edema. No obvious deformities. NEUROLOGICAL: GCS 3T. Intubated sedated Versed and fentanyl infusions to maintain adequate ICP Urinary Catheter: Yes Concepcion insert reason: Measure Accurate Output Date of Insertion: May 13, 2016 Vascular Central Line Catheter: Yes Assessment to: Continue (CVP monitoring, vasoactive medication administration) Date of Insertion: May 13, 2016 Line: Central Venous Catheter Side: Left Location: Subclavian (monitor CVP. Administration of vasoactive medications.) A/P Assessment and Plan This is a 51-year-old morbidly obese male, found down, unresponsive, with shallow respirations, hypoxia for unknown period of time. Upon presentation to the ED, initial exam GCS 3, with stents or posturing on the right to deep pain, and no pupillary response. The patient was found to have a large ICH, status post evacuation. Plan by systems: Neurologic: Large left frontal temporal hemorrhage with midline shift S/P craniotomy evacuation of left frontotemporal hemorrhage, and ventriculostomy placement POD #1 Unresponsiveness - GCS 3T- unresponsive to deep pain, right corneal reflex -Sedation off at this time- occasional spontaneous ventilations, flaccidity, no response to deep pain stimulation -CPP trend 65-85 -Maintain systolic blood pressure < 150mmHg and > 65mmHg-requiring Phenylephrine -Staple line clean dry and intact without erythema or drainage. -ICP 6-18 -CT brain 05/13-large left parietal hemorrhage measuring 6.5 x 7.5 cm which has ruptured into the ventricular system. 2 cm of [id number] falcine shift and some downward herniation -CT brain 05/15-prominent mass effect 1.6 cm midline shift to the right, diffuse intraventricular hemorrhage, cerebral edema left hemisphere -Neurosurgery on board, Dr Turner follow-up recommendations Respiratory: Hypoxic and hypercarbic respiratory failure -Mechanical ventilation, AC mode 20/650/5/0.35 - ABG-7.37/39/92/22/-2.1 -Maintain O2 sat greater than 92% -Scheduled bronchodilators every 6 hours, and every 2 hours when necessary -Maintain end-tidal CO2 30-35 Cardiovascular: H/O Hypertension Hypotension -Maintain MAP > 65 mmHg, phenylephrine currently at 50 mcgs -maintain CPP> 60 -ECHO 05/14- EF50-55%, no RWMA -Maintain systolic blood pressure less than 150mmHg -Apply Flotrac, monitor SVV, and CVP Renal: Oliguria Prerenal Azotemia -Maintain Concepcion -Decreased urinary output, FENA 0.15 -Urinary labs obtained urine osmole-889,Urine Na 122meq/L,Urine creatinine 418 -- Strict I/Os , monitor and documentation of hourly urinary output per urometer , in view of elevated urine osmole, urine sodium in the setting of hypotension requiring vasopressor support , possibly hypovolemia, though admission TSH was low, will repeat and obtain cortisol level to ensure is not a mineralocorticoid deficiency, plasma osmolality, uric acid, and BNP. FEN/GI: Morbid obesity Hypophosphatemia-resolved -OGT -Tube feeds- Vital Hi Protein 40cc/hr with goal rate of 65, minimal residuals -Monitor BMP -Continue 0.9 normal saline at 150 cc/hour, UOP 1100 in 8hours overnight - monitor CVP, Flotrac-trend SVV -Replete electrolytes per ICU protocol -Protonix GI prophylaxis -Zofran for nausea -Bowel regimen Heme/ID: -Monitor CBC -Follow-up blood culture results 05/14 -Gram positive Pleomorphic rods begin empiric coverage, F/U speciation -Urine 05/15 - positive Strep Pneumo Antigen -ID consult-Dr. Duff -Repeat blood cultures per ID05/14 -NGTD -05/1452-tgxtoc-zs results, patient placed on Unasyn -05/14Sputum culture- NGTD -Legionella urine antigen- neg - Influenza A&B-neg Endocrine: -Glucose monitoring every 6 hours per ICU protocol - TSH 0.137 -- SSI Prophylaxis: GI Prophylaxis Protonix IV DVT Prophylaxis -- SCDs No pharmacological DVT prophylaxis will defer to neurosurgery, when clinically indicated Lines: Peripheral IVs x 2 . Central line left subclavian, left radial a line OR, 05/13 Dispo: Discussed with family, poor prognosis, with no meaningful recovery- family wishes to discuss goals of care. Palliative care consult initiated. I talked to Niece, and the patient's 2 sisters and provided them with patient status. All questions answered. Discussed with ELECTRONIC IMAGER at bedside This patient remains critically ill with one or more organ systems which are or may become a threat to life. I have spent in excess of 47 minutes discontinuously in the care and management of this patient. This time is exclusive of procedures, and includes, but is not limited to, evaluation of the patient, review of the medical record, discussions with family, consultants, nursing staff, or respiratory therapy, and documentation in the medical record. Physician Sheree Deal MD May 17, 2016 08:35
[2016-05-17] MEDS: SODIUM CHLORIDE 0.9% FLUSH 5 ML FLUSH IV FLUSH SCH ×2 (08:37→20:57)
[2016-05-17] MEDS: PANTOPRAZOLE SODIUM 40 MG VIAL IV SCH (08:37)
[2016-05-17] MEDS: CHLORHEXIDINE 0.12% (ORAL KIT) 15 ML CUP MT SCH ×2 (08:37→20:00)
[2016-05-17] MEDS: ARTIFICIAL TEARS OPTH OINT 3.5 APPLIC/3.5 GM TUBO EACH EYE SCH ×3 (08:38→17:18)
--- NOTE | 2016-05-17 11:51 | HHI.IDPN ---
Note Infectious Disease Note Stop date for Unasyn IV in chart. Treating as aspiration pneumonia. covering for me this weekend. Will sign off please call back if any change in clinical condition or questions. Vital Signs Date Time Temp Pulse Resp B/P Pulse Ox O2 Delivery O2 Flow Rate FiO2 05/17/16 10:04 98 35 05/17/16 08:14 35 05/17/16 08:00 97.9 90 20 147/77 100 Automatic Cuff 05/17/16 08:00 90 05/17/16 08:00 35 05/17/16 07:49 97 35 05/17/16 06:00 97 05/17/16 04:04 98 35 05/17/16 04:00 35 05/17/16 04:00 96 05/17/16 04:00 98.4 96 20 97 134/74 05/17/16 02:00 81 05/17/16 00:00 87 05/17/16 00:00 99 35 05/17/16 00:00 35 05/17/16 00:00 97.5 87 20 145/70 97 122/65 05/16/16 22:00 71 05/16/16 20:16 98 35 05/16/16 20:00 98 35 05/16/16 20:00 98 35 05/16/16 20:00 62 05/16/16 20:00 35 05/16/16 20:00 97.9 62 20 126/64 99 124/74 05/16/16 18:00 60 05/16/16 16:00 98.1 56 20 162/84 100 05/16/16 16:00 56 05/16/16 16:00 35 05/16/16 15:56 100 35 05/16/16 14:00 72 05/16/16 12:00 35 05/16/16 12:00 68 05/16/16 12:00 98.4 68 18 135/71 100 Automatic Cuff Laboratory Tests Test 05/16/16 05/17/16 05/17/16 05/17/16 14:51 05:30 07:56 10:48 Sodium Level 150 MEQ/L 147 MEQ/L Potassium Level 3.2 MEQ/L 3.5 MEQ/L Chloride Level 117 MEQ/L 115 MEQ/L Carbon Dioxide Level 27.4 MEQ/L 25.4 MEQ/L Anion Gap 6 MEQ/L 7 MEQ/L Blood Urea Nitrogen 12 MG/DL 10 MG/DL Creatinine 0.67 MG/DL 0.60 MG/DL Estimat Glomerular Filtration 152 ML/MIN 173 ML/MIN Rate Random Glucose 130 MG/DL 97 MG/DL Serum Osmolality 313 MOSM/KG Calcium Level 7.7 MG/DL 7.5 MG/DL B-Type Natriuretic Peptide 4 PG/ML White Blood Count 8.5 TH/MM3 Red Blood Count 3.44 MIL/MM3 Hemoglobin 9.5 GM/DL Hematocrit 28.3 % Mean Corpuscular Volume 82.2 FL Mean Corpuscular Hemoglobin 27.6 PG Mean Corpuscular Hemoglobin 33.6 % Concent Red Cell Distribution Width 14.7 % Platelet Count 206 TH/MM3 Mean Platelet Volume 7.1 FL Neutrophils (%) (Auto) 70.3 % Lymphocytes (%) (Auto) 14.5 % Monocytes (%) (Auto) 11.9 % Eosinophils (%) (Auto) 2.7 % Basophils (%) (Auto) 0.6 % Neutrophils # (Auto) 6.0 TH/MM3 Lymphocytes # (Auto) 1.2 TH/MM3 Monocytes # (Auto) 1.0 TH/MM3 Eosinophils # (Auto) 0.2 TH/MM3 Basophils # (Auto) 0.0 TH/MM3 CBC Comment DIFF FINAL Differential Comment Phosphorus Level 3.1 MG/DL Blood Gas Puncture Site ART LINE Blood Gas Patient Temperature 98.6 Blood Gas HCO3 22 mmol/L Blood Gas Base Excess -2.1 mmol/L Blood Gas Oxygen Saturation 95 % Arterial Blood pH 7.37 Arterial Blood Partial 39 mmHg Pressure CO2 Arterial Blood Partial 92 mmHg Pressure O2 Arterial Blood Oxygen Content 13.6 Vol % Arterial Blood 1.0 % Carboxyhemoglobin Arterial Blood Methemoglobin 0.8 % Blood Gas Hemoglobin 10.1 G/DL Oxygen Delivery Device VENTILATOR Blood Gas Ventilator Setting AC/20/650/PEEP 5 Blood Gas Inspired Oxygen 35 % Thyroid Stimulating Hormone 0.197 uIU/ML 3rd Gen Random Cortisol 19.1 MCG/DL Nora Duff MD May 17, 2016 11:51
[2016-05-17] MEDS: MIDAZOLAM 100 MG/ML INJ 100 ML IV SCH (12:45)
[2016-05-17] MEDS: fentaNYL DRIP 250 ML IV SCH (13:05)
--- NOTE | 2016-05-17 13:43 | HHI.NSPN ---
(Jessica Lorenzana) Note Status Status: Progress Note (Jessica Lorenzana) Interval History Interval History 51-year-old male found unresponsive on park bench 05/13/16. Brought to [facility], unresponsive. Initial CT scan with large left frontal-temporal intracranial hemorrhage with nearly 2 cm midline shift. Positive intraventricular extension. Initial examination patient with positive corneal response, gag response, with mixed flexion and extensor posturing in the extremities. 05/13/16: Left Craniotomy for evacuation of intracranial hemorrhage. 05/14/16: Patient remains intubated, sedated. Stable vital signs. Low-grade temperature. Ventriculostomy functioning well 05/16/16: Intubated, stable vital signs. Scalp drains removed, ventriculostomy remains patent 05/17/16: ICPs better this morning and has been below 10. sedation off around 730 this morning. (Jessica Lorenzana) Labs, Micro, & Vital Signs Results Date Time Temp Pulse Resp B/P Pulse Ox O2 Delivery O2 Flow Rate FiO2 05/17/16 12:00 97.5 98 29 176/86 98 05/17/16 12:00 35 05/17/16 10:04 98 35 05/17/16 08:14 35 05/17/16 08:00 97.9 90 20 147/77 100 Automatic Cuff 05/17/16 08:00 90 05/17/16 08:00 35 05/17/16 07:49 97 35 05/17/16 06:00 97 05/17/16 04:04 98 35 05/17/16 04:00 35 05/17/16 04:00 96 05/17/16 04:00 98.4 96 20 97 134/74 05/17/16 02:00 81 05/17/16 00:00 87 05/17/16 00:00 99 35 05/17/16 00:00 35 05/17/16 00:00 97.5 87 20 145/70 97 122/65 05/16/16 22:00 71 05/16/16 20:16 98 35 05/16/16 20:00 98 35 05/16/16 20:00 98 35 05/16/16 20:00 62 05/16/16 20:00 35 05/16/16 20:00 97.9 62 20 126/64 99 124/74 05/16/16 18:00 60 05/16/16 16:00 98.1 56 20 162/84 100 05/16/16 16:00 56 05/16/16 16:00 35 05/16/16 15:56 100 35 05/16/16 14:00 72 05/17/16 07:00 Intake Total 24544 ml Output Total 2367 ml Balance 8457 ml Constitutional Vital Signs Date Time Temp Pulse Resp B/P Pulse Ox O2 Delivery O2 Flow Rate FiO2 05/17/16 12:00 97.5 98 29 176/86 98 05/17/16 12:00 35 05/17/16 10:04 98 35 05/17/16 08:14 35 05/17/16 08:00 97.9 90 20 147/77 100 Automatic Cuff 05/17/16 08:00 90 05/17/16 08:00 35 05/17/16 07:49 97 35 05/17/16 06:00 97 05/17/16 04:04 98 35 05/17/16 04:00 35 05/17/16 04:00 96 05/17/16 04:00 98.4 96 20 97 134/74 05/17/16 02:00 81 05/17/16 00:00 87 05/17/16 00:00 99 35 05/17/16 00:00 35 05/17/16 00:00 97.5 87 20 145/70 97 122/65 05/16/16 22:00 71 05/16/16 20:16 98 35 05/16/16 20:00 98 35 05/16/16 20:00 98 35 05/16/16 20:00 62 05/16/16 20:00 35 05/16/16 20:00 97.9 62 20 126/64 99 124/74 05/16/16 18:00 60 05/16/16 16:00 98.1 56 20 162/84 100 05/16/16 16:00 56 05/16/16 16:00 35 05/16/16 15:56 100 35 05/16/16 14:00 72 05/17/16 07:00 Intake Total 77804 ml Output Total 2367 ml Balance 8457 ml (Jessica Lorenzana) Review of Systems/Exam Exam Intubated, sedation off since 730 this am. No eye opening, no spont movements. EVD in place at 5 cm H20, ICP currently 5. Left flap full and tight. Wound clean and dry. CN: Pupils 3 mm b/l nonreactive. Conjugate gaze. minimal b/l corneal present. nursing reports + cough when suctioned Motor: no movements or response to deep or local pain stimuli Plantars silent b/l (Jessica Lorenzana) Medications Current Medications Current Medications Medications (Trade) Dose Ordered Sig/Cara Route PRN Reason Start Time Stop Time Status Last Admin Dose Admin Propofol (Diprivan 1000 Mg/100ml Inj) 100 ml @ 0 mls/hr TITRATE IV 05/13/16 08:45 05/15/16 13:50 IV Flush (NS Flush) 2 ml UNSCH PRN IV FLUSH FLUSH AFTER USING IV ACCESS 05/13/16 13:15 IV Flush (NS Flush) 2 ml BID IV FLUSH 05/13/16 21:00 05/16/16 20:49 Acetaminophen (Tylenol) 650 mg Q6H PRN PO PAIN 1-10 AND/OR FEVER >101F 05/13/16 13:15 Pantoprazole Sodium (Protonix Inj) 40 mg DAILY IV 05/14/16 09:00 05/17/16 08:37 Ondansetron HCl (Zofran Inj) 4 mg Q6H PRN IV NAUSEA OR VOMITING 05/13/16 13:15 Docusate Sodium (Colace Liq) 100 mg Q12H G-TUBE 05/13/16 14:00 05/17/16 01:28 Magnesium Hydroxide (Milk Of Magnesia Liq) 30 ml Q12H PRN PO CONSTIPATION 05/13/16 13:15 Sennosides (Senna Liq) 17.6 mg Q12H PRN G-TUBE CONSTIPATION 05/13/16 13:15 Miscellaneous Information 1 Q361D XX 05/13/16 13:15 Chlorhexidine Gluconate (Chlorhexidine 2% Cloth) 3 pack Taper DAILY@04 TOP 05/14/16 04:00 05/10/17 03:59 05/17/16 05:16 Chlorhexidine Gluconate 3 pack 3 pack UNSCH PRN TOP HYGIENIC CARE 05/13/16 13:15 Potassium Chloride 100 ml @ 50 mls/hr Q2H PRN IV For Potassium 2.8 - 3.2 mEq/L 05/13/16 13:15 05/16/16 17:38 Potassium Chloride (KCl 20 Meq Premix Inj) 100 ml @ 50 mls/hr Q2H PRN IV For Potassium 2.8 - 3.2 mEq/L 05/13/16 13:15 Potassium Chloride 40 meq 40 meq UNSCH PRN PO/TUBE For Potassium 3.3 - 3.5 mEq/L 05/13/16 13:15 Potassium Chloride 100 ml @ 25 mls/hr UNSCH PRN IV For Potassium 3.3 - 3.5 mEq/L 05/13/16 13:15 05/17/16 10:08 Potassium Chloride 100 ml @ 50 mls/hr Q2H PRN IV For Potassium 3.3 - 3.5 mEq/L 05/13/16 13:15 Magnesium Sulfate/ Sodium Chloride (Magnesium Sulfate Inj/NS Inj) 100 ml @ 50 mls/hr UNSCH PRN IV For Magnesium 0.9 - 1.1 mg/dL 05/13/16 13:15 Magnesium Oxide 800 mg 800 mg UNSCH PRN PO For Magnesium 1.2 - 1.6 mg/dL 05/13/16 13:15 Magnesium Sulfate/ Sodium Chloride (Magnesium Sulfate Inj/NS Inj) 100 ml @ 50 mls/hr UNSCH PRN IV For Magnesium 1.2 - 1.6 mg/dL 05/13/16 13:15 Potassium Phosphate 2000 mg 2,000 mg Q4H PRN PO For Phosphorus < 2.5 mg/dL 05/13/16 13:15 Sodium Phosphate/ Sodium Chloride (Sodium Phosphate Inj/NS 250 ml Inj) 250 ml @ 42 mls/hr UNSCH PRN IV For Phosphorus < 2.5 mg/dL 05/13/16 13:15 05/14/16 02:11 Potassium Chloride (KCl 40 Meq/30 ml Liq) 40 meq UNSCH PRN PO/TUBE SEE LABEL COMMENTS 05/13/16 13:15 Potassium Phosphate 2000 mg 2,000 mg UNSCH PRN PO/TUBE SEE LABEL COMMENTS 05/13/16 13:15 Potassium Phosphate/Sodium Chloride (Potassium Phosphate Inj/NS 250 ml Inj) 260 ml @ 42 mls/hr UNSCH PRN IV SEE LABEL COMMENTS 05/13/16 13:15 Chlorhexidine Gluconate (Peridex 0.12% Liq) 15 ml BID@08,20 MT 05/13/16 20:00 05/17/16 08:37 Dextrose (D50w (Vial) Inj) 25 ml UNSCH PRN IV PUSH HYPOGLYCEMIA-SEE COMMENTS 05/13/16 13:15 Glucagon 1 mg 1 mg UNSCH PRN OTHER HYPOGLYCEMIA-SEE COMMENTS 05/13/16 13:15 Fentanyl Citrate 250 ml @ 0 mls/hr TITRATE IV 05/14/16 10:15 05/17/16 13:05 Ampicillin Sodium/ Sulbactam Sodium 1500 mg/Sodium Chloride 100 ml @ 200 mls/hr Q6H IV 05/14/16 16:00 05/21/16 15:59 05/17/16 08:37 Midazolam HCl 100 ml @ 0 mls/hr TITRATE IV 05/15/16 14:30 05/17/16 12:45 Phenylephrine HCl/ Dextrose (Neosynephrine Inj/D5W 500 ml Inj) 500 ml @ 0 mls/hr TITRATE IV 05/15/16 18:15 05/16/16 17:52 Terbutaline Sulfate 1 mg 1 mg UNSCH PRN SQ For Extravasation 05/15/16 17:15 Sodium Chloride (NS 1000 ml Inj) 1,000 ml @ 125 mls/hr Q8H IV 05/16/16 14:00 05/17/16 08:38 Artificial Tears (Lacrilube Opht Oint) 1 applic TID EACH EYE 05/16/16 18:00 05/17/16 12:24 (Jessica Lorenzana) Medical Decision Making MDM Remarks 51 y/o male s/p left craniectomy with evacuation large intracranial hemorrhage with intraventricular extension, s/p placement of ventriculostomy drain (Jessica Lorenzana) Plan Plan Remarks cont ventriculostomy draining, monitoring ICPs, Dr. James reviewed last CT Head prognosis guarded cont sedation off as tolerated and f/u neuro exam cont serial neuro checks nonchemical DVT prophylaxis in view of ICH (Jessica Lorenzana) Attending Statement The exam, history, and the medical decision-making described in the above note were completed with the assistance of the mid-level provider. I reviewed and agree with the findings presented. I attest that I had a [id number] encounter with the patient on the same day, and personally performed and documented my assessment and findings in the medical record. (Quan James MD) Jessica Lorenzana May 17, 2016 13:43 Quan James MD May 18, 2016 18:38
--- NOTE | 2016-05-17 15:20 | PD.CONS ---
Consult Service Palliative Care Consult Requested By Dr. Salazar . Primary Care Physician No Primary Care Physician . Reason for Consultation a. To assist with evaluation and management of symptoms including: Dyspnea b. To assist medical decision maker(s) with: better understanding of current medical conditions; weighing benefits/burdens of medical treatment options; making medical treatment decisions. . HPI History of Present Illness This homeless 51-year-old male, with a past history of chronic back pain, obesity, and hypertension, was found down/unresponsive on 05/13/16. First responders did not feel he was protecting his airway, but they were unable to intubate him en route to the hospital. He remained unresponsive. At the emergency department, RS INTUBATION was accomplished, and findings included: * Unresponsive * Temp 95.0, pulse 67, respirations 18 on the ventilator, pressure 147/69 * Oxygen saturation 100% on the ventilator * White count 10.3, hemoglobin 12.2 * Sodium 134, creatinine 0.89, albumin 3.8 * Urine drug screen and alcohol levels negative * Chest x-ray with widened mediastinum and bilateral infiltrates * CT of the head revealed a large left parietal hemorrhage with 2 cm left to right falcine shift Neurosurgery evaluated the patient. They were unable to reach family, and took the patient emergently to the operating room where he underwent a craniotomy with evacuation of the hemorrhage and placement of a right frontal ventriculostomy. He has been in the [facility] since then. His only responses are a minimal cough, minimal corneal reflex, and he is breathing some around the ventilator. He is otherwise unresponsive. He was off sedation today for several hours, but his blood pressure began rising, causing an increase in his ICP and the restarting of some sedation. By the day after admission, blood cultures were positive for gram-positive bacteria, and the patient was felt to have aspiration pneumonia. He was kept on antibiotics. As the prognosis is felt to be dismal, Palliative Care was consulted to assist with symptom management and to enter into discussions with family members regarding the prognosis, as well as the benefits and burdens of the various treatment choices now.. . Function/Cognitive Trajectory The patient was homeless but apparently functioning independently prior to this hemorrhage. . Review of Systems ROS Limitations: Intubated, Unresponsive (no information available at this time ) Past Family Social History Coded Allergies: No Known Allergies (Unverified , 05/13/16) Past Medical History * Large intracerebral hemorrhage, with large midline shift * Aspiration pneumonia * Obesity * Chronic back pain * Hypertension * Hyperlipidemia . Reported Medications Unknown . Current Medications Medications (Trade) Dose Ordered Sig/Cara Route Start Time Stop Time Status Last Admin (Diprivan 1000 Mg/100ml Inj) 100 ml @ 0 mls/hr TITRATE IV 05/13/16 08:45 05/15/16 13:50 (NS Flush) 2 ml UNSCH PRN IV FLUSH 05/13/16 13:15 (NS Flush) 2 ml BID IV FLUSH 05/13/16 21:00 05/16/16 20:49 (Tylenol) 650 mg Q6H PRN PO 05/13/16 13:15 (Protonix Inj) 40 mg DAILY IV 05/14/16 09:00 05/17/16 08:37 (Zofran Inj) 4 mg Q6H PRN IV 05/13/16 13:15 (Colace Liq) 100 mg Q12H G-TUBE 05/13/16 14:00 05/17/16 01:28 (Milk Of Magnesia Liq) 30 ml Q12H PRN PO 05/13/16 13:15 (Senna Liq) 17.6 mg Q12H PRN G-TUBE 05/13/16 13:15 Miscellaneous Information 1 Q361D XX 05/13/16 13:15 (Chlorhexidine 2% Cloth) 3 pack Taper DAILY@04 TOP 05/14/16 04:00 05/10/17 03:59 05/17/16 05:16 Chlorhexidine Gluconate 3 pack 3 pack UNSCH PRN TOP 05/13/16 13:15 Potassium Chloride 100 ml @ 50 mls/hr Q2H PRN IV 05/13/16 13:15 05/16/16 17:38 (KCl 20 Meq Premix Inj) 100 ml @ 50 mls/hr Q2H PRN IV 05/13/16 13:15 Potassium Chloride 40 meq 40 meq UNSCH PRN PO/TUBE 05/13/16 13:15 Potassium Chloride 100 ml @ 25 mls/hr UNSCH PRN IV 05/13/16 13:15 05/17/16 10:08 Potassium Chloride 100 ml @ 50 mls/hr Q2H PRN IV 05/13/16 13:15 (Magnesium Sulfate Inj/NS Inj) 100 ml @ 50 mls/hr UNSCH PRN IV 05/13/16 13:15 Magnesium Oxide 800 mg 800 mg UNSCH PRN PO 05/13/16 13:15 (Magnesium Sulfate Inj/NS Inj) 100 ml @ 50 mls/hr UNSCH PRN IV 05/13/16 13:15 Potassium Phosphate 2000 mg 2,000 mg Q4H PRN PO 05/13/16 13:15 (Sodium Phosphate Inj/NS 250 ml Inj) 250 ml @ 42 mls/hr UNSCH PRN IV 05/13/16 13:15 05/14/16 02:11 (KCl 40 Meq/30 ml Liq) 40 meq UNSCH PRN PO/TUBE 05/13/16 13:15 Potassium Phosphate 2000 mg 2,000 mg UNSCH PRN PO/TUBE 05/13/16 13:15 (Potassium Phosphate Inj/NS 250 ml Inj) 260 ml @ 42 mls/hr UNSCH PRN IV 05/13/16 13:15 (Peridex 0.12% Liq) 15 ml BID@08,20 MT 05/13/16 20:00 05/17/16 08:37 (D50w (Vial) Inj) 25 ml UNSCH PRN IV PUSH 05/13/16 13:15 Glucagon 1 mg 1 mg UNSCH PRN OTHER 05/13/16 13:15 Fentanyl Citrate 250 ml @ 0 mls/hr TITRATE IV 05/14/16 10:15 05/17/16 13:05 Ampicillin Sodium/ Sulbactam Sodium 1500 mg/Sodium Chloride 100 ml @ 200 mls/hr Q6H IV 05/14/16 16:00 05/21/16 15:59 05/17/16 08:37 Midazolam HCl 100 ml @ 0 mls/hr TITRATE IV 05/15/16 14:30 05/17/16 12:45 (Neosynephrine Inj/D5W 500 ml Inj) 500 ml @ 0 mls/hr TITRATE IV 05/15/16 18:15 05/16/16 17:52 Terbutaline Sulfate 1 mg 1 mg UNSCH PRN SQ 05/15/16 17:15 (NS 1000 ml Inj) 1,000 ml @ 125 mls/hr Q8H IV 05/16/16 14:00 05/17/16 08:38 (Lacrilube Opht Oint) 1 applic TID EACH EYE 05/16/16 18:00 05/17/16 12:24 Family History Reportedly, the patient's father was alcoholic and in his 80s. One brother of diabetes, another of head injury/hemorrhage. . Substance Use Tobacco: Reportedly none Alcohol: Unknown Prescription med abuse: None known Illicits: None known . Family/friends goals: The family all agrees that they want to institute DNR status, and all family members except sister Melinda are leaning toward withdrawal of life support, but they all defer the decision to Melinda. She is wanting to allow time for "a miracle to happen," and the family agrees to meet again on Friday afternoon to discuss this further after they get off work. Ethical and Legal Issues There are no ethical issues that would impact the care or decision-making at this time. The patient lacks capacity for decision making, and he will not regain that capacity. The patient has no spouse or children or parents. He has 2 sisters and a brother, and by law decision making would fall to the majority of the 3 of them who are willing to participate. The patient's sister Mile and his brother Kee are deferring decision making to the patient's sister Melinda Amador. . Physical Exam Vital Signs Date Time Temp Pulse Resp B/P Pulse Ox O2 Delivery O2 Flow Rate FiO2 05/17/16 12:00 97.5 98 29 176/86 98 05/17/16 12:00 35 05/17/16 10:04 98 35 05/17/16 08:14 35 05/17/16 08:00 97.9 90 20 147/77 100 Automatic Cuff 05/17/16 08:00 90 05/17/16 08:00 35 05/17/16 07:49 97 35 05/17/16 06:00 97 05/17/16 04:04 98 35 05/17/16 04:00 35 05/17/16 04:00 96 05/17/16 04:00 98.4 96 20 97 134/74 05/17/16 02:00 81 05/17/16 00:00 87 05/17/16 00:00 99 35 05/17/16 00:00 35 05/17/16 00:00 97.5 87 20 145/70 97 122/65 05/16/16 22:00 71 1/26/17 20:16 98 35 05/16/16 20:00 98 35 05/16/16 20:00 98 35 05/16/16 20:00 62 05/16/16 20:00 35 05/16/16 20:00 97.9 62 20 126/64 99 124/74 05/16/16 18:00 60 05/16/16 16:00 98.1 56 20 162/84 100 05/16/16 16:00 56 05/16/16 16:00 35 05/16/16 15:56 100 35 05/16/16 05/17/16 19:00 07:00 Intake Total 3509 ml 7315 ml Output Total 316 ml 2051 ml Balance 3193 ml 5264 ml Intake IV Total 3206 ml 6994 ml Tube Feeding 303 ml 321 ml Output Urine Total 250 ml 1920 ml Drainage Total 66 ml 131 ml # Bowel Movements 0 0 Exam CONSTITUTIONAL/GENERAL: This is an adequately nourished, obese patient, in no apparent distress. Unresponsive in the [facility] TUBES/LINES/DRAINS: 2 peripheral IVs, left subclavian, SCDs, ET tube SKIN: No jaundice, rashes, or lesions. Ecchymoses on upper extremities. No wounds seen anteriorly. Skin temperature appropriate. Not diaphoretic. HEAD: Stapled incisions, ventriculostomy drain. Normocephalic. EYES: No scleral icterus. No injection or drainage. Fundi not examined. ENT: Nose without bleeding or purulent drainage. Throat without visible erythema, exudates, masses, or lesions. NECK: Trachea midline. Supple, nontender. No palpable thyroid enlargement or nodularity. CARDIOVASCULAR: Regular rate and rhythm without murmurs, gallops, or rubs. No JVD. Peripheral pulses symmetric. RESPIRATORY/CHEST: Symmetric, unlabored respirations. Clear to auscultation. Breath sounds equal bilaterally. No wheezes, rales, or rhonchi. GASTROINTESTINAL: Abdomen soft, obese, nondistended. No hepato-splenomegaly, or palpable masses. Bowel sounds present. GENITOURINARY: Without palpable bladder distension. Concepcion catheter in place. MUSCULOSKELETAL: Extremities without clubbing, cyanosis, or edema. No effusion noted. No calf tenderness. No mottling or clubbing. LYMPHATICS: No palpable cervical or supraclavicular adenopathy. NEUROLOGICAL: Unresponsive PSYCHIATRIC: Unable to evaluate due to his clinical condition . Diagnostic Tests Laboratory Laboratory Tests Test 05/15/16 05/15/16 05/15/16 05/15/16 04:10 05:33 17:08 22:05 White Blood Count 7.9 TH/MM3 (4.0-11.0) Red Blood Count 3.99 MIL/MM3 (4.50-5.90) Hemoglobin 10.9 GM/DL (13.0-17.0) Hematocrit 33.0 % (39.0-51.0) Mean Corpuscular Volume 82.7 FL (80.0-100.0) Mean Corpuscular Hemoglobin 27.2 PG (27.0-34.0) Mean Corpuscular Hemoglobin 32.9 % Concent (32.0-36.0) Red Cell Distribution Width 14.9 % (11.6-17.2) Platelet Count 192 TH/MM3 (150-450) Mean Platelet Volume 7.3 FL (7.0-11.0) Sodium Level 147 MEQ/L (136-145) Potassium Level 3.8 MEQ/L (3.5-5.1) Chloride Level 111 MEQ/L (98-107) Carbon Dioxide Level 33.3 MEQ/L (21.0-32.0) Anion Gap 3 MEQ/L (5-15) Blood Urea Nitrogen 7 MG/DL (7-18) Creatinine 0.74 MG/DL (0.60-1.30) Estimat Glomerular Filtration 136 ML/MIN Rate (>89) Random Glucose 113 MG/DL (74-106) Calcium Level 8.3 MG/DL (8.5-10.1) Phosphorus Level 2.9 MG/DL (2.5-4.9) Magnesium Level 3.0 MG/DL (1.5-2.5) Blood Gas Puncture Site ART LINE ART LINE ART LINE Blood Gas Patient Temperature 98.6 98.6 98.6 Blood Gas HCO3 28 mmol/L 27 mmol/L 26 mmol/L (22-26) (22-26) (22-26) Blood Gas Base Excess 3.5 mmol/L 2.4 mmol/L 2.4 mmol/L (-2-2) (-2-2) (-2-2) Blood Gas Oxygen Saturation 95 % (90-100) 94 % (90-100) 95 % (90-100) Arterial Blood pH 7.42 7.37 7.47 (7.380-7.420) (7.380-7.420) (7.380-7.420) Arterial Blood Partial 44 mmHg (38-42) 48 mmHg (38-42) 36 mmHg (38-42) Pressure CO2 Arterial Blood Partial 88 mmHg 88 mmHg 83 mmHg Pressure O2 (61-120) (61-120) (61-120) Arterial Blood Oxygen Content 19.6 Vol % 13.9 Vol % 13.9 Vol % (12.0-20.0) (12.0-20.0) (12.0-20.0) Arterial Blood 0.8 % (0-4) 0.9 % (0-4) 1.0 % (0-4) Carboxyhemoglobin Arterial Blood Methemoglobin 1.0 % (0-2) 1.0 % (0-2) 0.9 % (0-2) Blood Gas Hemoglobin 14.7 G/DL 10.4 G/DL 10.3 G/DL (12.0-16.0) (12.0-16.0) (12.0-16.0) Oxygen Delivery Device VENTILATOR VENTILATOR VENTILATOR Blood Gas Ventilator Setting VAC10/500/PEEP5 AC/16/550/PEEP5 VAC18/650/PEEP5 Blood Gas Inspired Oxygen 35 % 35 % 35 % Test 05/16/16 05/16/16 05/16/16 05/16/16 06:20 07:10 09:21 14:51 White Blood Count 8.0 TH/MM3 (4.0-11.0) Red Blood Count 3.58 MIL/MM3 (4.50-5.90) Hemoglobin 10.0 GM/DL (13.0-17.0) Hematocrit 29.6 % (39.0-51.0) Mean Corpuscular Volume 82.7 FL (80.0-100.0) Mean Corpuscular Hemoglobin 27.9 PG (27.0-34.0) Mean Corpuscular Hemoglobin 33.7 % Concent (32.0-36.0) Red Cell Distribution Width 15.0 % (11.6-17.2) Platelet Count 196 TH/MM3 (150-450) Mean Platelet Volume 7.7 FL (7.0-11.0) Sodium Level 150 MEQ/L 150 MEQ/L (136-145) (136-145) Potassium Level 3.1 MEQ/L 3.2 MEQ/L (3.5-5.1) (3.5-5.1) Chloride Level 115 MEQ/L 117 MEQ/L (98-107) (98-107) Carbon Dioxide Level 28.0 MEQ/L 27.4 MEQ/L (21.0-32.0) (21.0-32.0) Anion Gap 7 MEQ/L (5-15) 6 MEQ/L (5-15) Blood Urea Nitrogen 11 MG/DL (7-18) 12 MG/DL (7-18) Creatinine 0.75 MG/DL 0.67 MG/DL (0.60-1.30) (0.60-1.30) Estimat Glomerular Filtration 134 ML/MIN 152 ML/MIN Rate (>89) (>89) Random Glucose 123 MG/DL 130 MG/DL (74-106) (74-106) Calcium Level 7.8 MG/DL 7.7 MG/DL (8.5-10.1) (8.5-10.1) Phosphorus Level 2.0 MG/DL (2.5-4.9) Magnesium Level 2.8 MG/DL (1.5-2.5) Urine Osmolality 889 MOSM/KG (300-1300) Urine Random Creatinine 418.8 MG/DL Urine Random Sodium 122 MEQ/L Blood Gas Puncture Site ART LINE Blood Gas Patient Temperature 98.6 Blood Gas HCO3 25 mmol/L (22-26) Blood Gas Base Excess 1.2 mmol/L (-2-2) Blood Gas Oxygen Saturation 96 % (90-100) Arterial Blood pH 7.44 (7.380-7.420) Arterial Blood Partial 37 mmHg (38-42) Pressure CO2 Arterial Blood Partial 105 mmHg Pressure O2 (61-120) Arterial Blood Oxygen Content 20.8 Vol % (12.0-20.0) Arterial Blood 0.8 % (0-4) Carboxyhemoglobin Arterial Blood Methemoglobin 0.9 % (0-2) Blood Gas Hemoglobin 15.3 G/DL (12.0-16.0) Oxygen Delivery Device VENTILATOR Blood Gas Ventilator Setting AC/650/18/PEEP5 Blood Gas Inspired Oxygen 35 % Serum Osmolality 313 MOSM/KG (275-295) B-Type Natriuretic Peptide 4 PG/ML (0-100) Test 05/17/16 05/17/16 05/17/16 05:30 07:56 10:48 White Blood Count 8.5 TH/MM3 (4.0-11.0) Red Blood Count 3.44 MIL/MM3 (4.50-5.90) Hemoglobin 9.5 GM/DL (13.0-17.0) Hematocrit 28.3 % (39.0-51.0) Mean Corpuscular Volume 82.2 FL (80.0-100.0) Mean Corpuscular Hemoglobin 27.6 PG (27.0-34.0) Mean Corpuscular Hemoglobin 33.6 % Concent (32.0-36.0) Red Cell Distribution Width 14.7 % (11.6-17.2) Platelet Count 206 TH/MM3 (150-450) Mean Platelet Volume 7.1 FL (7.0-11.0) Neutrophils (%) (Auto) 70.3 % (16.0-70.0) Lymphocytes (%) (Auto) 14.5 % (9.0-44.0) Monocytes (%) (Auto) 11.9 % (0.0-8.0) Eosinophils (%) (Auto) 2.7 % (0.0-4.0) Basophils (%) (Auto) 0.6 % (0.0-2.0) Neutrophils # (Auto) 6.0 TH/MM3 (1.8-7.7) Lymphocytes # (Auto) 1.2 TH/MM3 (1.0-4.8) Monocytes # (Auto) 1.0 TH/MM3 (0-0.9) Eosinophils # (Auto) 0.2 TH/MM3 (0-0.4) Basophils # (Auto) 0.0 TH/MM3 (0-0.2) CBC Comment DIFF FINAL Differential Comment Sodium Level 147 MEQ/L (136-145) Potassium Level 3.5 MEQ/L (3.5-5.1) Chloride Level 115 MEQ/L (98-107) Carbon Dioxide Level 25.4 MEQ/L (21.0-32.0) Anion Gap 7 MEQ/L (5-15) Blood Urea Nitrogen 10 MG/DL (7-18) Creatinine 0.60 MG/DL (0.60-1.30) Estimat Glomerular Filtration 173 ML/MIN Rate (>89) Random Glucose 97 MG/DL (74-106) Calcium Level 7.5 MG/DL (8.5-10.1) Phosphorus Level 3.1 MG/DL (2.5-4.9) Blood Gas Puncture Site ART LINE Blood Gas Patient Temperature 98.6 Blood Gas HCO3 22 mmol/L (22-26) Blood Gas Base Excess -2.1 mmol/L (-2-2) Blood Gas Oxygen Saturation 95 % (90-100) Arterial Blood pH 7.37 (7.380-7.420) Arterial Blood Partial 39 mmHg (38-42) Pressure CO2 Arterial Blood Partial 92 mmHg Pressure O2 (61-120) Arterial Blood Oxygen Content 13.6 Vol % (12.0-20.0) Arterial Blood 1.0 % (0-4) Carboxyhemoglobin Arterial Blood Methemoglobin 0.8 % (0-2) Blood Gas Hemoglobin 10.1 G/DL (12.0-16.0) Oxygen Delivery Device VENTILATOR Blood Gas Ventilator Setting AC/20/650/PEEP 5 Blood Gas Inspired Oxygen 35 % Thyroid Stimulating Hormone 0.197 uIU/ML 3rd Gen (0.358-3.740) Random Cortisol 19.1 MCG/DL Result Diagram: 05/17/16 0530 05/17/16 0530 Microbiology Microbiology Date/Time Procedure Status Source Growth 05/14/16 16:20 Aerobic Blood Culture - Preliminary Resulted Blood Peripheral NO GROWTH IN 3 DAYS 05/14/16 16:20 Anaerobic Blood Culture - Preliminary Resulted Blood Peripheral NO GROWTH IN 3 DAYS 05/14/16 16:25 Aerobic Blood Culture - Preliminary Resulted Blood Peripheral NO GROWTH IN 3 DAYS 05/14/16 16:25 Anaerobic Blood Culture - Preliminary Resulted Blood Peripheral NO GROWTH IN 3 DAYS 05/14/16 21:50 Gram Stain - Final Complete Sputum Endotracheal 05/14/16 21:50 Sputum Culture - Final Complete Sputum Endotracheal NO GROWTH IN 48 HOURS. 05/15/16 04:15 Legionella Antigen - Final Complete Urine Catheterized Urine PRESUMPTIVE NEGATIVE FOR LEGIONELLA P... 05/15/16 04:15 Streptococcus pneumoniae Antigen (M - Final Complete Urine Catheterized Urine 05/15/16 04:15 - Final Complete Other Imaging Last Impressions Chest X-Ray 05/17/16 0000 Signed Impressions: Service Date/Time: Tuesday, May 17, 2016 07:50 - CONCLUSION: 1. Lines and tubes. 2. Bibasilar parenchymal opacities are grossly unchanged from the prior exam. They are limited in evaluation due to motion artifact. 3. Questionable small posterior layering pleural effusions. Pa Greer Jr., MD Head CT 05/15/16 0600 Signed Impressions: Service Date/Time: Sunday, May 15, 2016 04:50 - CONCLUSION: 1. Status post left craniotomy with placement of a drain in the previously noted large acute intraparenchymal hemorrhage in the left mid parietal area. The large hemorrhage has decreased in size compared to the prior study. 2. There continues to be prominent mass effect and midline shift to the right by 1.6 cm. This maybe mildly improved compared to the prior study when it was measured at 2.0 cm. 3. There continues to be extensive and diffuse intraventricular hemorrhage. 4. There continues to be cerebral edema in the left cerebral hemisphere. 5. There is intracranial air characteristic of recent surgery. Tommy Gupta MD Neck CTA 05/13/16 0000 Signed Impressions: Service Date/Time: Friday, May 13, 2016 18:55 - CONCLUSION: 1. Examination negative for carotid stenosis. Minimal calcific plaque at the carotid bifurcations. Great vessel origins patent. Woo Hernandes MD Head CTA 05/13/16 0000 Signed Impressions: Service Date/Time: Friday, May 13, 2016 18:55 - CONCLUSION: 1. Questionable aneurysm versus focal extravasation of contrast around the distal left middle cerebral artery measuring up to 8 mm in diameter. This may be better evaluated angiographically. Intracranial vasospasm present. Woo Hernandes MD Procedures INTUBATION 05/13/16 Craniotomy, evacuation of hemorrhage, placement of ventriculostomy 05/13/16 . Patient/Family Conference Present at Family Conference: Patient's sister: Melinda Amador, Melinda's son Shaji Pace, the patient's brother Kee Calhoun, his sister Mile, his niece Isadora Pretty (ORNAMENT STITCHER currently in school athletic director), and Isadora's Walt Pretty. And [employer] medical student Maegan Gomez. . Family Conference Time (mins): 92 Family Conference Location: Consult Room Issues Discussed: * Palliative care role, purpose, approach * Additional medical, psychosocial, and spiritual history * Patients general health, functional status, and cognitive changes in the months leading up to the current hospitalization * Patient/family understanding of the current medical problems * Patient/family understanding of prognosis * Patients goals of care as best understood from advance directives and/or conversations and/or values * Current medical treatment options and benefits/burdens of those options * Likely scenarios comparing ongoing aggressive care with a transition to comfort measures only * Questions answered to the best of my ability * Palliative care contact information provided The family all agrees that they want to institute DNR status at this time, saying that "if his heart stops we can let him go because that was God's will," and all family members except sister Melinda are leaning toward withdrawal of life support, but they all defer the final decision to Melinda. She is wanting to allow time for "a miracle to happen," and the family agrees to meet again on Friday afternoon to discuss this further after they get off work. . Assessment and Plan Disease Oriented Problem List: (1) large intracerebral hemorrhage, with 2 cm midline shift (2) Respiratory failure (3) aspiration pneumonia (4) obesity (5) hyperlipidemia (6) chronic back pain (7) hypertension Symptom Scale: (1) pain 0-10 Scale: Unable to quantify (2) dyspnea 0-10 Scale: Unable to quantify Pertinent Non-Medical Issues Psychosocial: Homeless, unmarried, no children, limited interaction with most of his family members for quite some time, but has had continued interaction with his sister Melinda. Spiritual: Religious background, back filler operator visits are requested by the family. Legal: The patient lacks capacity, and he will not regain capacity for decision -making. The patient has no spouse or children or parents. He has 2 sisters and a brother, and by law decision making would fall to the majority of the 3 of them who are willing to participate. The patient's sister Mile and his brother Kee are deferring decision making to the patient's sister Melinda Amador. Ethical issues impacting care: None. . Important Contacts Patient's sister Melinda Amador: [phone] . Prognosis This patient is terminal, with no opportunity for meaningful recovery. He will either soon with withdrawal of life support, or in the upcoming weeks from the usual complications of this level of debility. . Code Status: Alternative Code Plan * ALTERNATE CODE - intubation only * GOALS: The family all agrees that they want to institute DNR status at this time, saying that "if his heart stops we can let him go because that was God's will," and all family members except sister Melinda are leaning toward withdrawal of life support, but they all defer the final decision to Melinda. She is wanting to allow time for "a miracle to happen," and the family agrees to meet again on Friday to discuss this further after they get off work. * DECISION-MAKING: The patient has no spouse or children or parents. He has 2 sisters and a brother, and by law decision making would fall to the majority of the 3 of them who are willing to participate. The patient's sister Mile and his brother Kee are deferring decision making to the patient's sister Melinda Amador. * SYMPTOMS: It is difficult to know if the patient is perceiving any pain ( recent surgery, ICH, bedbound status) or dyspnea at this time. He is on fentanyl and the ventilator to manage the symptoms at this time. * Bait Man visit requested. * Palliative Care will continue to follow the patient during this hospitalization, and will meet with the family again Friday. . Time Spent Total Floor Time (mins): 113 Face to Face Time (mins): 99 >50% Counseling/Coord of Care: Yes (d/w RN and with Dr. Salazar.) Thank you for the opportunity to participate in the care of Mr. Amador. Attestation To help prompt me to consider important information that might be impacting today's encounter and assessment, information from prior notes written by myself or my colleagues may have been "brought forward" into today's note. My signature on this note, however, is an attestation that I personally performed the exam, history, and/or decision-making noted today, and, unless otherwise indicated, the interactions with patient, family, and staff as well as the review of records all occurred today. I also attest that the listed assessment and stated plan reflect my best clinical judgment today based on the combination of historical information, prior notes, and today's exam/ interactions. When time spent is documented, it refers only to time spent today by the signer, or if indicated, combined time spent today by collaborating physician/nurse practitioner. Alma Roman MD May 17, 2016 15:20
[2016-05-18] VITALS (19 sets, daily range): BP systolic 108–139; BP diastolic 56–69; PULSE 76–94; RESP 16–20; TEMP 98.4–99.5; O2SAT 97–100
[2016-05-18] MEDS: AMPICILLIN-SULBACTAM INJ 1,500 MG in SODIUM CHLORIDE 0.9% INJ 100 ML IV SCH ×4 (02:44→23:34)
[2016-05-18] MEDS: DOCUSATE SODIUM 100 MG/10 ML UDC G-TUBE SCH ×2 (02:44→12:46)
[2016-05-18] MEDS: CHLORHEXIDINE GLUCONATE 2 % 1 PACK (2 CLOTHS) TOP SCH (02:45)
[2016-05-18] MEDS: RESP: ALBUTEROL 2.5 MG/IPRATROPIUM 0.5 MG NEB (SCH) INH ×4 (03:01→19:38)
[2016-05-18 04:11] LABS: HEMATOCRIT 27.8 % (39.0-51.0); MEAN CELL VOLUME 81.6 FL (80.0-100.0); MEAN CORPUSCULAR HEMOGLOBIN 27.6 PG (27.0-34.0); MEAN CORPUSCULAR HGB CONC 33.8 % (32.0-36.0); PLATELET COUNT 212 TH/MM3 (150-450); RED BLOOD COUNT 3.41 MIL/MM3 (4.50-5.90); RED CELL DISTRIBUTION WIDTH 14.7 % (11.6-17.2); REVIEW FLAG FINAL; WHITE BLOOD COUNT 8.6 TH/MM3 (4.0-11.0)
[2016-05-18 04:29] LABS: MAGNESIUM 2.5 MG/DL (1.5-2.5)
[2016-05-18 05:14] LABS: BLOOD GAS BASE EXCESS -0.8 mmol/L (-2-2); BLOOD GAS CARBOXYHEMOGLOBIN 1.1 % (0-4); BLOOD GAS HCO3 23 mmol/L (22-26); BLOOD GAS METHEMOGLOBIN 0.9 % (0-2); BLOOD GAS O2 HGB SATURATION 95 % (90-100); BLOOD GAS OXYGEN CONTENT 13.3 Vol % (12.0-20.0); BLOOD GAS PCO2 38 mmHg (38-42); BLOOD GAS PO2 91 mmHg (61-120); BLOOD GAS TOTAL HGB 9.9 G/DL (12.0-16.0); CRITICAL VALUE NO; OXYGEN DEVICE VENTILATOR; TEMP CORR TO 98.6
[2016-05-18 05:15] LABS: DRAW SITE ART LINE; FIO2 35 %; VENT SETTINGS PRVC
[2016-05-18 05:16] LABS: STAT NO
--- NOTE | 2016-05-18 05:43 | RADRPT ---
EXAM DATE/TIME: 05/18/2016 04:50 [facility] COMPARISON: CHEST SINGLE AP, May 17, 2016, 7:50. INDICATIONS : Shortness of breath. MEDICAL HISTORY : None. SURGICAL HISTORY : None. ENCOUNTER: Subsequent ACUITY: 4 - 6 days PAIN SCORE: Non-responsive. LOCATION: Bilateral chest FINDINGS: There is patchy consolidation again seen. Endotracheal tube and enteric tube are again noted. EKG nadira ds overlie the chest. Osseous structures are intact. CONCLUSION: No significant change has occurred. Dwayne Muñoz MD on May 18, 2016 at 5:40 Board Certified Radiologist. This report was verified electronically.
[2016-05-18] MEDS: INSULIN ASPART SUPPLEMENTAL SCALE SQ SCH ×4 (06:21→20:22)
[2016-05-18] MEDS: LACTULOSE SYRUP 20 GM/30 ML CUP PO SCH (08:09)
[2016-05-18] MEDS: CHLORHEXIDINE 0.12% (ORAL KIT) 15 ML CUP MT SCH ×2 (08:10→20:21)
[2016-05-18] MEDS: ARTIFICIAL TEARS OPTH OINT 3.5 APPLIC/3.5 GM TUBO EACH EYE SCH ×3 (08:10→17:10)
[2016-05-18] MEDS: PANTOPRAZOLE SODIUM 40 MG VIAL IV SCH (08:10)
[2016-05-18] MEDS: SODIUM CHLORIDE 0.9% FLUSH 5 ML FLUSH IV FLUSH SCH ×2 (08:11→20:22)
[2016-05-18] MEDS: SODIUM CHLOR 0.9% 1000 ML INJ 1,000 ML IV SCH ×2 (10:23→17:10)
--- NOTE | 2016-05-18 10:53 | HHI.NSPN ---
(Jessica Lorenzana) Note Status Status: Progress Note (Jessica Lorenzana) Interval History Interval History 51-year-old male found unresponsive on park bench 05/13/16. Brought to [facility], unresponsive. Initial CT scan with large left frontal-temporal intracranial hemorrhage with nearly 2 cm midline shift. Positive intraventricular extension. Initial examination patient with positive corneal response, gag response, with mixed flexion and extensor posturing in the extremities. 05/13/16: Left Craniotomy for evacuation of intracranial hemorrhage. 05/14/16: Patient remains intubated, sedated. Stable vital signs. Low-grade temperature. Ventriculostomy functioning well 05/16/16: Intubated, stable vital signs. Scalp drains removed, ventriculostomy remains patent 05/17/16: ICPs better this morning and has been below 10. sedation off around 730 this morning. 05/18/16: placed on low dose sedation for bp control, ICPs remains wnl. No eye opening, no spontaneous movements. Palliative care following. (Jessica Lorenzana) Labs, Micro, & Vital Signs Results Date Time Temp Pulse Resp B/P Pulse Ox O2 Delivery O2 Flow Rate FiO2 05/18/16 07:57 97 35 05/18/16 07:54 100 35 05/18/16 06:00 94 05/18/16 04:00 88 05/18/16 04:00 35 05/18/16 04:00 99.0 88 20 108/56 100 05/18/16 03:04 98 35 05/18/16 02:00 90 05/18/16 00:00 93 05/18/16 00:00 35 05/18/16 00:00 98.4 93 20 139/69 100 05/17/16 22:00 87 05/17/16 20:14 98 35 05/17/16 20:00 98.2 89 22 120/59 100 05/17/16 20:00 85 05/17/16 20:00 35 05/17/16 18:00 87 05/17/16 17:35 99 35 05/17/16 16:00 97.2 85 20 135/67 99 05/17/16 16:00 85 05/17/16 16:00 35 05/17/16 14:00 92 05/17/16 12:00 98 05/17/16 12:00 97.5 98 29 176/86 98 05/17/16 12:00 35 05/18/16 07:00 Intake Total 4343 ml Output Total 4840.0 ml Balance -497.0 ml Constitutional Vital Signs Date Time Temp Pulse Resp B/P Pulse Ox O2 Delivery O2 Flow Rate FiO2 05/18/16 07:57 97 35 05/18/16 07:54 100 35 05/18/16 06:00 94 05/18/16 04:00 88 05/18/16 04:00 35 05/18/16 04:00 99.0 88 20 108/56 100 05/18/16 03:04 98 35 05/18/16 02:00 90 05/18/16 00:00 93 05/18/16 00:00 35 05/18/16 00:00 98.4 93 20 139/69 100 05/17/16 22:00 87 05/17/16 20:14 98 35 05/17/16 20:00 98.2 89 22 120/59 100 05/17/16 20:00 85 05/17/16 20:00 35 05/17/16 18:00 87 05/17/16 17:35 99 35 05/17/16 16:00 97.2 85 20 135/67 99 05/17/16 16:00 85 05/17/16 16:00 35 05/17/16 14:00 92 05/17/16 12:00 98 05/17/16 12:00 97.5 98 29 176/86 98 05/17/16 12:00 35 05/18/16 07:00 Intake Total 4343 ml Output Total 4840.0 ml Balance -497.0 ml (Jessica Lorenzana) Review of Systems/Exam Exam Intubated, and on low dose sedation. No eye opening, no spont movements. EVD at [address], not draining, ICPs = 5. Drain was flushed yesterday with saline towards the bag reservoir, and 1 cc distally, without any drainage seen. Left flap remains very full and tight. Wound clean and dry. CN: Pupils right 5 mm, left 4 mm, nonreactive b/l. Conjugate gaze. minimal b/l corneal present. currently no cough or gag when suctioned. Motor: no movements or response to deep or local pain stimuli Plantars silent b/l Extremities: diffuse edema (Jessica Lorenzana) Medications Current Medications Current Medications Medications (Trade) Dose Ordered Sig/Cara Route PRN Reason Start Time Stop Time Status Last Admin Dose Admin IV Flush (NS Flush) 2 ml UNSCH PRN IV FLUSH FLUSH AFTER USING IV ACCESS 05/13/16 13:15 IV Flush (NS Flush) 2 ml BID IV FLUSH 05/13/16 21:00 05/18/16 08:11 Acetaminophen (Tylenol) 650 mg Q6H PRN PO PAIN 1-10 AND/OR FEVER >101F 05/13/16 13:15 Pantoprazole Sodium (Protonix Inj) 40 mg DAILY IV 05/14/16 09:00 05/18/16 08:10 Ondansetron HCl (Zofran Inj) 4 mg Q6H PRN IV NAUSEA OR VOMITING 05/13/16 13:15 Docusate Sodium (Colace Liq) 100 mg Q12H G-TUBE 05/13/16 14:00 05/18/16 02:44 Magnesium Hydroxide (Milk Of Magnesia Liq) 30 ml Q12H PRN PO CONSTIPATION 05/13/16 13:15 Sennosides (Senna Liq) 17.6 mg Q12H PRN G-TUBE CONSTIPATION 05/13/16 13:15 Miscellaneous Information 1 Q361D XX 05/13/16 13:15 Chlorhexidine Gluconate (Chlorhexidine 2% Cloth) 3 pack Taper DAILY@04 TOP 05/14/16 04:00 05/10/17 03:59 05/18/16 02:45 Chlorhexidine Gluconate 3 pack 3 pack UNSCH PRN TOP HYGIENIC CARE 05/13/16 13:15 Potassium Chloride 100 ml @ 50 mls/hr Q2H PRN IV For Potassium 2.8 - 3.2 mEq/L 05/13/16 13:15 05/16/16 17:38 Potassium Chloride (KCl 20 Meq Premix Inj) 100 ml @ 50 mls/hr Q2H PRN IV For Potassium 2.8 - 3.2 mEq/L 05/13/16 13:15 Potassium Chloride 40 meq 40 meq UNSCH PRN PO/TUBE For Potassium 3.3 - 3.5 mEq/L 05/13/16 13:15 Potassium Chloride 100 ml @ 25 mls/hr UNSCH PRN IV For Potassium 3.3 - 3.5 mEq/L 05/13/16 13:15 05/17/16 10:08 Potassium Chloride 100 ml @ 50 mls/hr Q2H PRN IV For Potassium 3.3 - 3.5 mEq/L 05/13/16 13:15 Magnesium Sulfate/ Sodium Chloride (Magnesium Sulfate Inj/NS Inj) 100 ml @ 50 mls/hr UNSCH PRN IV For Magnesium 0.9 - 1.1 mg/dL 05/13/16 13:15 Magnesium Oxide 800 mg 800 mg UNSCH PRN PO For Magnesium 1.2 - 1.6 mg/dL 05/13/16 13:15 Magnesium Sulfate/ Sodium Chloride (Magnesium Sulfate Inj/NS Inj) 100 ml @ 50 mls/hr UNSCH PRN IV For Magnesium 1.2 - 1.6 mg/dL 05/13/16 13:15 Potassium Phosphate 2000 mg 2,000 mg Q4H PRN PO For Phosphorus < 2.5 mg/dL 05/13/16 13:15 Sodium Phosphate/ Sodium Chloride (Sodium Phosphate Inj/NS 250 ml Inj) 250 ml @ 42 mls/hr UNSCH PRN IV For Phosphorus < 2.5 mg/dL 05/13/16 13:15 05/14/16 02:11 Potassium Chloride (KCl 40 Meq/30 ml Liq) 40 meq UNSCH PRN PO/TUBE SEE LABEL COMMENTS 05/13/16 13:15 Potassium Phosphate 2000 mg 2,000 mg UNSCH PRN PO/TUBE SEE LABEL COMMENTS 05/13/16 13:15 Potassium Phosphate/Sodium Chloride (Potassium Phosphate Inj/NS 250 ml Inj) 260 ml @ 42 mls/hr UNSCH PRN IV SEE LABEL COMMENTS 05/13/16 13:15 Chlorhexidine Gluconate (Peridex 0.12% Liq) 15 ml BID@08,20 MT 05/13/16 20:00 05/18/16 08:10 Dextrose (D50w (Vial) Inj) 25 ml UNSCH PRN IV PUSH HYPOGLYCEMIA-SEE COMMENTS 05/13/16 13:15 Glucagon 1 mg 1 mg UNSCH PRN OTHER HYPOGLYCEMIA-SEE COMMENTS 05/13/16 13:15 Fentanyl Citrate 250 ml @ 0 mls/hr TITRATE IV 05/14/16 10:15 05/17/16 13:05 Ampicillin Sodium/ Sulbactam Sodium 1500 mg/Sodium Chloride 100 ml @ 200 mls/hr Q6H IV 05/14/16 16:00 05/21/16 15:59 05/18/16 10:23 Midazolam HCl 100 ml @ 0 mls/hr TITRATE IV 05/15/16 14:30 05/17/16 12:45 Phenylephrine HCl/ Dextrose (Neosynephrine Inj/D5W 500 ml Inj) 500 ml @ 0 mls/hr TITRATE IV 05/15/16 18:15 05/16/16 17:52 Terbutaline Sulfate 1 mg 1 mg UNSCH PRN SQ For Extravasation 05/15/16 17:15 Sodium Chloride (NS 1000 ml Inj) 1,000 ml @ 125 mls/hr Q8H IV 05/16/16 14:00 05/18/16 10:23 Artificial Tears (Lacrilube Opht Oint) 1 applic TID EACH EYE 05/16/16 18:00 05/18/16 08:10 Lactulose (Lactulose Liq) 30 ml DAILY PO 05/18/16 09:00 05/18/16 08:09 (Jessica Lorenzana) Medical Decision Making MDM Remarks 51 y/o male s/p left craniectomy with evacuation large intracranial hemorrhage with intraventricular extension, s/p placement of ventriculostomy drain flap remains tight and full, poor neurological exam, post decompression f/u CT Brain 05/15 with 1.5 cm mildine shift, edema and extensive IVH ventriculostomy not draining, however with stable ICPs (Jessica Lorenzana) Plan Plan Remarks cont current care cont ventriculostomy with ICP monitoring cont sedation off as tolerated and f/u neuro exam nonchemical DVT prophylaxis in view of ICH palliative care following prognosis guarded (Jessica Lorenzana) Attending Statement The exam, history, and the medical decision-making described in the above note were completed with the assistance of the mid-level provider. I reviewed and agree with the findings presented. I attest that I had a [id number] encounter with the patient on the same day, and personally performed and documented my assessment and findings in the medical record. (Quan James MD) Jessica Lorenzana May 18, 2016 10:53 Quan James MD May 18, 2016 18:39
--- NOTE | 2016-05-18 12:21 | HHI.CCPN ---
Subjective Remarks/Hospital Course 51-year-old morbidly obese male ,with unknown medical history, presented to the ED this am. Per EMS report, the patient was found down on a park bench, unresponsive, coarse respirations.EMS attempted to intubate the patient due to coarse respiration and not protecting airway, and were unsuccessful on scene. He was brought into the ED for unresponsiveness. No family or individuals were present to provide any history. The patient was intubated in the ED. Patient was noted to be hypothermic, temperature 95.0, warming methods were initiated via IV fluid and Leslie Hugger. Imaging studies were performed in the ED, T of the brain noted a large left parietal hemorrhage , neurosurgery was consulted. Dr. Turner evaluated the patient, and critical care medicine was consulted for treatment and management. The patient was then emergently transferred to the OR for evacuation of hematoma with right ventriculostomy placement. 05/14 Afebrile. The patient is status post evacuation of large left frontal temporal ICH. Overnight the patient had increasing urinary output, approximately 390610 cc/hr, for approximately 3 hours with resolution of polyuria. The patient remains sedated on propofol infusion. Cerebral perfusion pressures have been 60-86, throughout the night. 05/15 The patient became hypothermic yesterday afternoon, temperature 95.0 requiring supplemental heat with Bairhugger . Initial blood culture revealed gram-positive pleomorphic rods, ID was consulted, Dr. Duff and patient was placed on Unasyn. Repeat CT head this a.m. shows continued mass effect. CPP remains 6580. 05/16 No change in neurological evaluation with cessation of sedation. ANDRÉS drains were removed this a.m.. ICPs became elevated yesterday afternoon requiring Versed and Fentanyl infusion. Last evening, the patient required addition of phenylephrine to maintain adequate MAP. Overnight, the patient's urine output was decreased, the patient received 1 L bolus of normal saline. 05/17 Afebrile. Resolution of oliguria, the patient remains on phenylephrine for vasopressor support. ICPs stable overnight, the patient continues on Versed and fentanyl infusions. Cessation of all sedation, reveals no change in neurological evaluation, pupils nonreactive, flaccid to deep pain stimulation, spontaneous ventilations over mechanical ventilation. Extensive discussion with family yesterday, family on aware of events leading up to admission to hospital. Family informed of poor prognosis, palliative care consult initiated for discussion of goals of care. Subjective: 05/18 Tube feeds have been on hold since yesterday at 2 PM due to elevated residuals at 300. No bowel movement since admission. Off phenylephrine since yesterday about 5 pm. No significant neuro change. Remain off versed, was only started briefly yesterday due to hypertension/tachycardia when repositioned in bed. Ventric not draining well, neurosurgery aware and Margeaux flushed. ICP 6-8 Objective Vital Signs Date Time Temp Pulse Resp B/P Pulse Ox O2 Delivery O2 Flow Rate FiO2 05/18/16 07:57 97 35 05/18/16 06:00 94 05/18/16 04:00 99.0 20 108/56 05/16/16 07:00 Mechanical Ventilator Intake and Output 05/17/16 05/17/16 05/18/16 08:00 16:00 00:00 Intake Total 2321 ml 1594 ml 1773 ml Output Total 1172 ml 1760.0 ml 2250 ml Balance 1149 ml -166.0 ml -477 ml Result Diagram: 05/18/16 0355 05/18/16 0355 Other Results Laboratory Tests Test 05/18/16 04:59 Blood Gas Puncture Site ART LINE Blood Gas Patient Temperature 98.6 Blood Gas HCO3 23 mmol/L (22-26) Blood Gas Base Excess -0.8 mmol/L (-2-2) Blood Gas Oxygen Saturation 95 % (90-100) Arterial Blood pH 7.41 (7.380-7.420) Arterial Blood Partial 38 mmHg (38-42) Pressure CO2 Arterial Blood Partial 91 mmHg Pressure O2 (61-120) Arterial Blood Oxygen Content 13.3 Vol % (12.0-20.0) Arterial Blood 1.1 % (0-4) Carboxyhemoglobin Arterial Blood Methemoglobin 0.9 % (0-2) Blood Gas Hemoglobin 9.9 G/DL (12.0-16.0) Oxygen Delivery Device VENTILATOR Blood Gas Liter Flow L/M Blood Gas Ventilator Setting PRVC Blood Gas Inspired Oxygen 35 % Imaging Last Impressions Chest X-Ray 05/16/16 0000 Signed Impressions: Service Date/Time: April 07:14 - CONCLUSION: Stable chest x-ray with mild airspace consolidation at the left lung base and atelectasis at the right lung base. Jose De Jesus Sheffield MD Head CT 05/15/16 0600 Signed Impressions: Service Date/Time: Sunday, May 15, 2016 04:50 - CONCLUSION: 1. Status post left craniotomy with placement of a drain in the previously noted large acute intraparenchymal hemorrhage in the left mid parietal area. The large hemorrhage has decreased in size compared to the prior study. 2. There continues to be prominent mass effect and midline shift to the right by 1.6 cm. This maybe mildly improved compared to the prior study when it was measured at 2.0 cm. 3. There continues to be extensive and diffuse intraventricular hemorrhage. 4. There continues to be cerebral edema in the left cerebral hemisphere. 5. There is intracranial air characteristic of recent surgery. Tommy Gupta MD Neck CTA 05/13/16 0000 Signed Impressions: Service Date/Time: Friday, May 13, 2016 18:55 - CONCLUSION: 1. Examination negative for carotid stenosis. Minimal calcific plaque at the carotid bifurcations. Great vessel origins patent. Woo Hernandes MD Head CTA 05/13/16 0000 Signed Impressions: Service Date/Time: Friday, May 13, 2016 18:55 - CONCLUSION: 1. Questionable aneurysm versus focal extravasation of contrast around the distal left middle cerebral artery measuring up to 8 mm in diameter. This may be better evaluated angiographically. Intracranial vasospasm present. Woo Hernandes MD Last [address] 05/15/16599 Signed Impressions: Service Date/Time: Sunday, May 15, 2016 04:50 - CONCLUSION: 1. Status post left craniotomy with placement of a drain in the previously noted large acute intraparenchymal hemorrhage in the left mid parietal area. The large hemorrhage has decreased in size compared to the prior study. 2. There continues to be prominent mass effect and midline shift to the right by 1.6 cm. This maybe mildly improved compared to the prior study when it was measured at 2.0 cm. 3. There continues to be extensive and diffuse intraventricular hemorrhage. 4. There continues to be cerebral edema in the left cerebral hemisphere. 5. There is intracranial air characteristic of recent surgery. Tommy Gupta MD Chest X-Ray 05/15/16 06 Signed Impressions: Service Date/Time: Sunday, May 15, 2016 02:45 - CONCLUSION: Stable scattered areas of atelectasis in the right lung. Otherwise, no other new or significant changes. Tommy Gupta MD Last Impressions Head CT 05/13/16835 Signed Impressions: Service Date/Time: Friday, May 13, 2016 09:57 - CONCLUSION: 1. There is a large left parietal hemorrhage measuring 6.5 x 7.5 cm which has ruptured into the ventricular system. There is 2 cm of left to right falcine shift and some degree of downward herniation as well. Nomi Conti MD Chest X-Ray 05/13/16835 Signed Impressions: Service Date/Time: Friday, May 13, 2016 08:42 - CONCLUSION: 1. ET tube in good position. 2. Widening of the mediastinum. CT imaging of the thorax with contrast is warranted for further assessment. Nomi Conti MD Objective Remarks Drips: Fentanyl 50 g/hr GENERAL: Super morbidly obese male intubated and sedated. SKIN: Warm and dry. HEAD: Atraumatic. Normocephalic. L Ventric in place +5cm, EYES: R pupil 5 mm and nonreactive, left pupil 4 mm and nonreactive. Mild conjunctival edema B/L. + corneal reflex right eye, absent corneal reflex on the left.. No scleral icterus. No injection or drainage. ENT: No nasal bleeding or discharge. Mucous membranes pink and moist. Orotracheally intubated NECK: Trachea midline. Unable to assess JVD, secondary to body habitus. CARDIOVASCULAR: Normal rate, regular rhythm. S1,S2 RESPIRATORY: No accessory muscle use. Clear to auscultation. Breath sounds equal bilaterally. GASTROINTESTINAL: Abdomen soft, non-tender, nondistended. No guarding. Old well -healed midline surgical scar noted . OGT tube to gravity, reportedly 200 bilious residual per RN, tube feeds off over night. MUSCULOSKELETAL: Extremities without clubbing, cyanosis, or edema. No obvious deformities. NEUROLOGICAL: Extremities flaccid in the deep noxious stimuli. Overbreathing vent. Absent left corneal reflex. Pupils as per above. Date of Insertion: May 13, 2016 Date of Insertion: May 13, 2016 Line: Central Venous Catheter Side: Left Location: Subclavian (monitor CVP. Administration of vasoactive medications.) A/P Assessment and Plan This is a 51-year-old morbidly obese male, found down, unresponsive, with shallow respirations, hypoxia for unknown period of time. Upon presentation to the ED, initial exam GCS 3, with stents or posturing on the right to deep pain, and no pupillary response. The patient was found to have a large ICH, status post evacuation. Plan by systems: Neurologic: Large left frontal temporal hemorrhage with midline shift S/P craniotomy evacuation of left frontotemporal hemorrhage, and ventriculostomy placement 05/13/16 Unresponsiveness - GCS 3T- unresponsive to deep pain. Does have some brainstem reflexes including overbreathing vent and intact right corneal. -Low dose fentanyl drip as needed for analgesia -off versed -ICP 6-8. -Staple line clean dry and intact without erythema or drainage. -CT brain 05/13-large left parietal hemorrhage measuring 6.5 x 7.5 cm which has ruptured into the ventricular system. 2 cm of [id number] falcine shift and some downward herniation -CT brain 05/15-prominent mass effect 1.6 cm midline shift to the right, diffuse intraventricular hemorrhage, cerebral edema left hemisphere -Neurosurgery, Dr Turner following. Respiratory: Acute Hypoxic and hypercarbic respiratory failure -Mechanical ventilation, AC mode 650/5/0.35. Decrease mandatory rate to 16 as he is overbreathing at 20. -Maintain O2 sat greater than 92% -Scheduled bronchodilators every 6 hours, and every 2 hours when necessary Cardiovascular: H/O Hypertension -Maintain MAP > 65 mmHg, and CPP >60. No longer requiring phenylephrine. -ECHO 05/14- EF50-55%, no RWMA -CI 3.2. SVV8 SVI 38. D/c flotrac FEN/Renal: Oliguria (resolved) Prerenal Azotemia (resolved) Hypophosphatemia-resolved -Maintain Concepcion -Monitor sodium -Replete electrolytes per ICU protocol FEN/GI: Morbid obesity Probable gastric ileus -High residual. Check KUB. Initiate reglan 10 mg IV q8 hours. On bowel regimen with colace, senna, lactulose 30 ml daily. Add dulcolax. -Tube feeds- Vital Hi Protein 40cc/hr with goal rate of 65, minimal residuals -Monitor BMP Heme/ID: -Monitor CBC -Follow-up blood culture results 05/14 -Gram positive Pleomorphic rods -Urine 05/15 - positive Strep Pneumo Antigen -ID following. -Dr. Duff -Repeat blood cultures per ID05/14 -NGTD -05/14Sputum culture- NGTD -Legionella urine antigen- neg - Influenza A&B-neg On unasyn 05/14 (previously received rocephin). Anticipated stop date ordered for 05/21/16 Endocrine: -Glucose monitoring every 6 hours per ICU protocol - TSH 0.137. Followup T4. Cortisol was normal. -- SSI Prophylaxis: GI Prophylaxis Protonix IV DVT Prophylaxis -- SCDs No pharmacological DVT prophylaxis. will defer to neurosurgery Lines: Peripheral IVs x 2 . Central line left subclavian, left radial a line OR, #6. Dispo: Dr. Salazar has discussed with family, poor prognosis, with no meaningful recovery - family wishes to discuss goals of care. Palliative care consult initiated. I reviewed Dr. Roman's note. Family to reconvene Friday regarding goals of care. Discussed with RN. This patient remains critically ill with one or more organ systems which are or may become a threat to life. I have spent in excess of 35 minutes discontinuously in the care and management of this patient. This time is exclusive of procedures, and includes, but is not limited to, evaluation of the patient, review of the medical record, discussions with family, consultants, nursing staff, or respiratory therapy, and documentation in the medical record. Li Wiley MD May 18, 2016 12:21 nursing staff, or respiratory therapy, and documentation in the medical record. Li Wiley MD May 18, 2016 12:21
[2016-05-18] MEDS: BISACODYL 10 MG SUPP RECTAL SCH (12:25)
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
[2016-05-18] MEDS: METOCLOPRAMIDE HCL 10 MG/2 ML VIAL IV PUSH SCH ×2 (12:46→23:34)
[2016-05-18] MEDS: fentaNYL DRIP 250 ML IV SCH (14:02)
[2016-05-18] MEDS ORDERED: LABETALOL HCL 100 MG/20 ML VIAL IV PUSH PRN (18:30)
[2016-05-18] MEDS ORDERED: hydrALAZINE HCL 20 MG/ML VIAL IV PUSH PRN (18:30)
[2016-05-18 22:03] LABS: BLOOD GAS HCO3 24 mmol/L (22-26); BLOOD GAS METHEMOGLOBIN 0.9 % (0-2); BLOOD GAS O2 HGB SATURATION 96 % (90-100); BLOOD GAS OXYGEN CONTENT 13.6 Vol % (12.0-20.0); BLOOD GAS PCO2 42 mmHg (38-42); BLOOD GAS PO2 99 mmHg (61-120); BLOOD GAS TOTAL HGB 10.1 G/DL (12.0-16.0); CRITICAL VALUE NO; OXYGEN DEVICE VENTILATOR; TEMP CORR TO 98.6
[2016-05-18 22:04] LABS: DRAW SITE ART LINE; FIO2 35 %; STAT NO; VENT SETTINGS AC/16/650/PEEP5
[2016-05-19] VITALS (18 sets, daily range): BP systolic 130–151; BP diastolic 63–70; PULSE 68–77; RESP 18–21; TEMP 98.6–99.5; O2SAT 94–99
[2016-05-19] MEDS: RESP: ALBUTEROL 2.5 MG/IPRATROPIUM 0.5 MG NEB (SCH) INH ×4 (03:36→20:48)
[2016-05-19] MEDS: SODIUM CHLOR 0.9% 1000 ML INJ 1,000 ML IV SCH ×2 (04:13→09:59)
[2016-05-19] MEDS: DOCUSATE SODIUM 100 MG/10 ML UDC G-TUBE SCH ×2 (04:13→13:58)
[2016-05-19] MEDS: AMPICILLIN-SULBACTAM INJ 1,500 MG in SODIUM CHLORIDE 0.9% INJ 100 ML IV SCH ×4 (04:13→20:36)
[2016-05-19] MEDS: METOCLOPRAMIDE HCL 10 MG/2 ML VIAL IV PUSH SCH ×3 (04:14→20:36)
[2016-05-19] MEDS: CHLORHEXIDINE GLUCONATE 2 % 1 PACK (2 CLOTHS) TOP SCH (04:14)
[2016-05-19] MEDS: fentaNYL DRIP 250 ML IV SCH ×2 (04:15→13:59)
[2016-05-19 04:33] LABS: BICARBONATE 26.5 MEQ/L (21.0-32.0); POTASSIUM 4.3 MEQ/L (3.5-5.1)
[2016-05-19] MEDS: INSULIN ASPART SUPPLEMENTAL SCALE SQ SCH ×4 (06:31→20:32)
[2016-05-19] MEDS: CHLORHEXIDINE 0.12% (ORAL KIT) 15 ML CUP MT SCH ×2 (07:27→20:31)
[2016-05-19] MEDS: BISACODYL 10 MG SUPP RECTAL SCH (07:56)
[2016-05-19] MEDS: LACTULOSE SYRUP 20 GM/30 ML CUP PO SCH (07:56)
[2016-05-19] MEDS: SODIUM CHLORIDE 0.9% FLUSH 5 ML FLUSH IV FLUSH SCH ×2 (07:57→20:31)
[2016-05-19] MEDS: PANTOPRAZOLE SODIUM 40 MG VIAL IV SCH (07:57)
[2016-05-19] MEDS: ARTIFICIAL TEARS OPTH OINT 3.5 APPLIC/3.5 GM TUBO EACH EYE SCH ×3 (07:57→17:35)
[2016-05-19] MEDS ORDERED: MIDAZOLAM HCL 5 MG/ML VIAL (1 ML) IV ONE (08:15)
--- NOTE | 2016-05-19 11:15 | HHI.CCPN ---
Subjective Remarks/Hospital Course 51-year-old morbidly obese male ,with unknown medical history, presented to the ED this am. Per EMS report, the patient was found down on a park bench, unresponsive, coarse respirations.EMS attempted to intubate the patient due to coarse respiration and not protecting airway, and were unsuccessful on scene. He was brought into the ED for unresponsiveness. No family or individuals were present to provide any history. The patient was intubated in the ED. Patient was noted to be hypothermic, temperature 95.0, warming methods were initiated via IV fluid and Leslie Hugger. Imaging studies were performed in the ED, T of the brain noted a large left parietal hemorrhage , neurosurgery was consulted. Dr. Turner evaluated the patient, and critical care medicine was consulted for treatment and management. The patient was then emergently transferred to the OR for evacuation of hematoma with right ventriculostomy placement. 05/14 Afebrile. The patient is status post evacuation of large left frontal temporal ICH. Overnight the patient had increasing urinary output, approximately [id number] cc/hr, for approximately 3 hours with resolution of polyuria. The patient remains sedated on propofol infusion. Cerebral perfusion pressures have been 60-86, throughout the night. 05/15 The patient became hypothermic yesterday afternoon, temperature 95.0 requiring supplemental heat with Bairhugger . Initial blood culture revealed gram-positive pleomorphic rods, ID was consulted, Dr. Duff and patient was placed on Unasyn. Repeat CT head this a.m. shows continued mass effect. CPP remains 6580. 05/16 No change in neurological evaluation with cessation of sedation. ANDRÉS drains were removed this a.m.. ICPs became elevated yesterday afternoon requiring Versed and Fentanyl infusion. Last evening, the patient required addition of phenylephrine to maintain adequate MAP. Overnight, the patient's urine output was decreased, the patient received 1 L bolus of normal saline. 05/17 Afebrile. Resolution of oliguria, the patient remains on phenylephrine for vasopressor support. ICPs stable overnight, the patient continues on Versed and fentanyl infusions. Cessation of all sedation, reveals no change in neurological evaluation, pupils nonreactive, flaccid to deep pain stimulation, spontaneous ventilations over mechanical ventilation. Extensive discussion with family yesterday, family on aware of events leading up to admission to hospital. Family informed of poor prognosis, palliative care consult initiated for discussion of goals of care. 05/18 Tube feeds have been on hold since yesterday at 2 PM due to elevated residuals at 300. No bowel movement since admission. Off phenylephrine since yesterday about 5 pm. No significant neuro change. Remain off versed, was only started briefly yesterday due to hypertension/tachycardia when repositioned in bed. Ventric not draining well, neurosurgery aware and Margeaux flushed. ICP 6-8 Subjective: 05/19 ICP reading 22-24. Ventric not draining and NSG aware. Given versed bolus and adjusted vent to target End Tidal 30-35 (PaCO2 35-40). Had a bowel movement yesterday. Tolerating tube feed overnight. Objective Vital Signs Date Time Temp Pulse Resp B/P Pulse Ox O2 Delivery O2 Flow Rate FiO2 05/19/16 10:00 74 05/19/16 08:52 98 35 05/19/16 08:00 98.6 21 139/70 05/16/16 07:00 Mechanical Ventilator Intake and Output 05/18/16 05/18/16 05/19/16 08:00 16:00 00:00 Intake Total 976 ml 1172 ml 1377 ml Output Total 830 ml 1110 ml 1600 ml Balance 146 ml 62 ml -223 ml Result Diagram: 05/18/16 0355 05/19/16 0315 Other Results Laboratory Tests Test 05/18/16 21:52 Blood Gas Puncture Site ART LINE Blood Gas Patient Temperature 98.6 Blood Gas HCO3 24 mmol/L (22-26) Blood Gas Base Excess -1.0 mmol/L (-2-2) Blood Gas Oxygen Saturation 96 % (90-100) Arterial Blood pH 7.37 (7.380-7.420) Arterial Blood Partial 42 mmHg (38-42) Pressure CO2 Arterial Blood Partial 99 mmHg Pressure O2 (61-120) Arterial Blood Oxygen Content 13.6 Vol % (12.0-20.0) Arterial Blood 1.0 % (0-4) Carboxyhemoglobin Arterial Blood Methemoglobin 0.9 % (0-2) Blood Gas Hemoglobin 10.1 G/DL (12.0-16.0) Oxygen Delivery Device VENTILATOR Blood Gas Ventilator Setting AC/16/650/PEEP5 Blood Gas Inspired Oxygen 35 % Imaging Last Impressions Chest X-Ray 05/16/16 0000 Signed Impressions: Service Date/Time: April 07:14 - CONCLUSION: Stable chest x-ray with mild airspace consolidation at the left lung base and atelectasis at the right lung base. Jose De Jesus Sheffield MD Head CT 05/15/16 0600 Signed Impressions: Service Date/Time: Sunday, May 15, 2016 04:50 - CONCLUSION: 1. Status post left craniotomy with placement of a drain in the previously noted large acute intraparenchymal hemorrhage in the left mid parietal area. The large hemorrhage has decreased in size compared to the prior study. 2. There continues to be prominent mass effect and midline shift to the right by 1.6 cm. This maybe mildly improved compared to the prior study when it was measured at 2.0 cm. 3. There continues to be extensive and diffuse intraventricular hemorrhage. 4. There continues to be cerebral edema in the left cerebral hemisphere. 5. There is intracranial air characteristic of recent surgery. Tommy Gupta MD Neck CTA 05/13/16 0000 Signed Impressions: Service Date/Time: Friday, May 13, 2016 18:55 - CONCLUSION: 1. Examination negative for carotid stenosis. Minimal calcific plaque at the carotid bifurcations. Great vessel origins patent. Woo Hernandes MD Head CTA 05/13/16 0000 Signed Impressions: Service Date/Time: Friday, May 13, 2016 18:55 - CONCLUSION: 1. Questionable aneurysm versus focal extravasation of contrast around the distal left middle cerebral artery measuring up to 8 mm in diameter. This may be better evaluated angiographically. Intracranial vasospasm present. Woo Hernandes MD Last [address] 05/15/16 0600 Signed Impressions: Service Date/Time: Sunday, May 15, 2016 04:50 - CONCLUSION: 1. Status post left craniotomy with placement of a drain in the previously noted large acute intraparenchymal hemorrhage in the left mid parietal area. The large hemorrhage has decreased in size compared to the prior study. 2. There continues to be prominent mass effect and midline shift to the right by 1.6 cm. This maybe mildly improved compared to the prior study when it was measured at 2.0 cm. 3. There continues to be extensive and diffuse intraventricular hemorrhage. 4. There continues to be cerebral edema in the left cerebral hemisphere. 5. There is intracranial air characteristic of recent surgery. Tommy Gupta MD Chest X-Ray 05/15/16 0600 Signed Impressions: Service Date/Time: Sunday, May 15, 2016 02:45 - CONCLUSION: Stable scattered areas of atelectasis in the right lung. Otherwise, no other new or significant changes. Tommy Gupta MD Last Impressions Head CT 05/13/16 0836 Signed Impressions: Service Date/Time: Friday, May 13, 2016 09:57 - CONCLUSION: 1. There is a large left parietal hemorrhage measuring 6.5 x 7.5 cm which has ruptured into the ventricular system. There is 2 cm of left to right falcine shift and some degree of downward herniation as well. Nomi Conti MD Chest X-Ray 05/13/16 0836 Signed Impressions: Service Date/Time: Friday, May 13, 2016 08:42 - CONCLUSION: 1. ET tube in good position. 2. Widening of the mediastinum. CT imaging of the thorax with contrast is warranted for further assessment. Nomi Conti MD Objective Remarks Drips: Fentanyl 50 g/hr 0.9 NaCl at 125 L per hour GENERAL: Super morbidly obese male intubated and sedated. SKIN: Warm and dry. HEAD: Atraumatic. Normocephalic. L Ventric in place +5cm, not draining. EYES: R pupil 5 mm and nonreactive, left pupil 4 mm and nonreactive. Mild conjunctival edema B/L. + corneal reflex right eye, absent corneal reflex on the left.. No scleral icterus. No injection or drainage. ENT: No nasal bleeding or discharge. Mucous membranes pink and moist. Orotracheally intubated NECK: Trachea midline. Unable to assess JVD, secondary to body habitus. CARDIOVASCULAR: Normal rate, regular rhythm. S1,S2 RESPIRATORY: No accessory muscle use. Clear to auscultation. Breath sounds equal bilaterally. GASTROINTESTINAL: Abdomen soft, non-tender, nondistended. No guarding. Old well -healed midline surgical scar noted . Tube feeds running at 40 mL/hr. MUSCULOSKELETAL: Extremities without clubbing, cyanosis. 1+ extremity edema. NEUROLOGICAL: Extremities flaccid to deep noxious central and peripheral stimuli. Overbreathing vent. Absent left corneal reflex. Pupils as per above. Date of Insertion: May 13, 2016 Date of Insertion: May 13, 2016 Line: Central Venous Catheter Side: Left Location: Subclavian (monitor CVP. Administration of vasoactive medications.) A/P Assessment and Plan This is a 51-year-old morbidly obese male, found down, unresponsive, with shallow respirations, hypoxia for unknown period of time. Upon presentation to the ED, initial exam GCS 3, with stents or posturing on the right to deep pain, and no pupillary response. The patient was found to have a large ICH, status post evacuation. Plan by systems: Neurologic: Large left frontal temporal hemorrhage with midline shift S/P craniotomy evacuation of left frontotemporal hemorrhage, and ventriculostomy placement 05/13/16 Unresponsiveness - GCS 3T- unresponsive to deep pain. Does have some brainstem reflexes including overbreathing vent and intact right corneal. -Fentanyl increased to 250 mcg/hr in view of ICP in 20s. Given Versed bolus 4 mg IV. -ICP 22-24. -Staple line clean dry and intact without erythema or drainage. -CT brain 05/13-large left parietal hemorrhage measuring 6.5 x 7.5 cm which has ruptured into the ventricular system. 2 cm of [id number] falcine shift and some downward herniation -CT brain 05/15-prominent mass effect 1.6 cm midline shift to the right, diffuse intraventricular hemorrhage, cerebral edema left hemisphere -Neurosurgery, Dr Turner following. Dr. James covering this weekend, aware ventric not draining. No further intervention planned. Respiratory: Acute Hypoxic and hypercarbic respiratory failure -Mechanical ventilation, AC mode 650/5/0.35, increased resp rate to 20 to target End tidal 30-35. PaCO2 is at target of 42. -Maintain O2 sat greater than 92% -Scheduled bronchodilators every 6 hours, and every 2 hours when necessary Cardiovascular: H/O Hypertension -Maintain MAP > 65 mmHg, and CPP >60. Phenylephrine if needed to maintain CPP -ECHO 05/14- EF50-55%, no RWMA FEN/Renal: Oliguria (resolved) Prerenal Azotemia (resolved) Hypophosphatemia-resolved -Maintain Concepcion -Monitor sodium -Decrease NS to 50 mL/hr -Replete electrolytes per ICU protocol FEN/GI: Morbid obesity Gastric ileus, resolved. -Initiated reglan 10 mg IV q8 hours due to high residuals and not tolerating tube feeds.. KUB - 05/18 normal bowel gas pattern On bowel regimen with colace, senna, lactulose 30 ml daily, Dulcolax SC. -Tube feeds- Vital Hi Protein 40cc/hr with goal rate of 65. -Monitor BMP Heme/ID: -Monitor CBC -Follow-up blood culture results 05/14 -Gram positive Pleomorphic rods -Urine 05/15 - positive Strep Pneumo Antigen -ID following. -Dr. Duff -Repeat blood cultures per ID05/14 -NGTD -05/14Sputum culture- NGTD -Legionella urine antigen- neg - Influenza A&B-neg On unasyn 05/14 (previously received rocephin). Anticipated stop date ordered for 05/21/16 Endocrine: -Glucose monitoring every 6 hours per ICU protocol - TSH 0.137. Followup T4. Cortisol was normal. -- SSI Prophylaxis: GI Prophylaxis Protonix IV DVT Prophylaxis -- SCDs No pharmacological DVT prophylaxis. will defer to neurosurgery Lines: Peripheral IVs x 2 . Central line left subclavian, left radial a line OR, #7 Dispo: Dr. Salazar has discussed with family, poor prognosis, with no meaningful recovery - family wishes to discuss goals of care. Palliative care consult initiated. I reviewed Dr. Roman's note. Family to reconvene Friday regarding goals of care. Discussed with RN. This patient remains critically ill with one or more organ systems which are or may become a threat to life. I have spent in excess of 35 minutes discontinuously in the care and management of this patient. This time is exclusive of procedures, and includes, but is not limited to, evaluation of the patient, review of the medical record, discussions with family, consultants, nursing staff, or respiratory therapy, and documentation in the medical record. Li Wiley MD May 19, 2016 11:15
--- NOTE | 2016-05-19 11:17 | HHI.NSPN ---
(Jessica Lorenzana) Note Status Status: Progress Note (Jessica Lorenzana) Interval History Interval History 51-year-old male found unresponsive on park bench 05/13/16. Brought to [facility], unresponsive. Initial CT scan with large left frontal-temporal intracranial hemorrhage with nearly 2 cm midline shift. Positive intraventricular extension. Initial examination patient with positive corneal response, gag response, with mixed flexion and extensor posturing in the extremities. 05/13/16: Left Craniotomy for evacuation of intracranial hemorrhage. 05/14/16: Patient remains intubated, sedated. Stable vital signs. Low-grade temperature. Ventriculostomy functioning well 05/16/16: Intubated, stable vital signs. Scalp drains removed, ventriculostomy remains patent 05/17/16: ICPs better this morning and has been below 10. sedation off around 730 this morning. 05/18/16: placed on low dose sedation for bp control, ICPs remains wnl. No eye opening, no spontaneous movements. Palliative care following. 05/19/16: still no drainage out of EVD, ICPs went up to 25 yesterday, currently when checked ICPs = 9 (Jessica Lorenzana) Labs, Micro, & Vital Signs Results Date Time Temp Pulse Resp B/P Pulse Ox O2 Delivery O2 Flow Rate FiO2 05/19/16 10:00 74 05/19/16 08:52 98 35 05/19/16 08:48 98 35 05/19/16 08:00 35 05/19/16 08:00 98.6 76 21 139/70 98 05/19/16 08:00 71 05/19/16 06:00 75 05/19/16 04:26 97 35 05/19/16 04:00 35 05/19/16 04:00 99.1 74 18 151/70 97 05/19/16 04:00 74 05/19/16 02:00 35 05/19/16 02:00 76 05/19/16 01:39 98 35 05/19/16 00:00 35 05/19/16 00:00 99.5 76 18 135/63 97 05/19/16 00:00 76 05/18/16 22:13 98 35 05/18/16 22:00 76 05/18/16 22:00 35 05/18/16 20:00 99.1 77 16 138/64 98 05/18/16 20:00 35 05/18/16 20:00 76 05/18/16 19:38 99 35 05/18/16 19:38 99 35 05/18/16 18:04 97 35 05/18/16 18:00 77 05/18/16 16:00 81 05/18/16 16:00 35 05/18/16 16:00 98.8 81 18 137/67 97 05/18/16 14:00 82 05/18/16 12:32 98 35 05/18/16 12:00 98.8 88 20 122/64 100 05/18/16 12:00 88 05/18/16 12:00 35 05/19/16 07:00 Intake Total 4005 ml Output Total 4560 ml Balance -555 ml Constitutional Vital Signs Date Time Temp Pulse Resp B/P Pulse Ox O2 Delivery O2 Flow Rate FiO2 05/19/16 10:00 74 05/19/16 08:52 98 35 05/19/16 08:48 98 35 05/19/16 08:00 35 05/19/16 08:00 98.6 76 21 139/70 98 05/19/16 08:00 71 05/19/16 06:00 75 05/19/16 04:26 97 35 05/19/16 04:00 35 05/19/16 04:00 99.1 74 18 151/70 97 05/19/16 04:00 74 05/19/16 02:00 35 05/19/16 02:00 76 05/19/16 01:39 98 35 05/19/16 00:00 35 05/19/16 00:00 99.5 76 18 135/63 97 05/19/16 00:00 76 05/18/16 22:13 98 35 05/18/16 22:00 76 05/18/16 22:00 35 05/18/16 20:00 99.1 77 16 138/64 98 05/18/16 20:00 35 05/18/16 20:00 76 05/18/16 19:38 99 35 05/18/16 19:38 99 35 05/18/16 18:04 97 35 05/18/16 18:00 77 05/18/16 16:00 81 05/18/16 16:00 35 05/18/16 16:00 98.8 81 18 137/67 97 05/18/16 14:00 82 05/18/16 12:32 98 35 05/18/16 12:00 98.8 88 20 122/64 100 05/18/16 12:00 88 05/18/16 12:00 35 05/19/16 07:00 Intake Total 4005 ml Output Total 4560 ml Balance -555 ml (Jessica Lorenzana) Review of Systems/Exam Exam Intubated, and off sedative drips. No eye opening, no spont movements. EVD at [address], not draining, there is some ? slight fluctuations seen on external drain, ICPs currently 9 Left flap still remains very full and tight, no pulsations seen. Wound clean and dry, no evidence of infection. CN: Pupils right 5 mm, left 4 mm, nonreactive b/l. Conjugate gaze. minimal b/l corneal present. no dolls, no cough or gag Motor: no movements or response to deep or local pain stimuli Plantars silent b/l, DTRs trace throughout Extremities: diffuse edema (Jessica Lorenzana) Medications Current Medications Current Medications Medications (Trade) Dose Ordered Sig/Cara Route PRN Reason Start Time Stop Time Status Last Admin Dose Admin IV Flush (NS Flush) 2 ml UNSCH PRN IV FLUSH FLUSH AFTER USING IV ACCESS 05/13/16 13:15 IV Flush (NS Flush) 2 ml BID IV FLUSH 05/13/16 21:00 05/19/16 07:57 Acetaminophen (Tylenol) 650 mg Q6H PRN PO PAIN 1-10 AND/OR FEVER >101F 05/13/16 13:15 Pantoprazole Sodium (Protonix Inj) 40 mg DAILY IV 05/14/16 09:00 05/19/16 07:57 Ondansetron HCl (Zofran Inj) 4 mg Q6H PRN IV NAUSEA OR VOMITING 05/13/16 13:15 Docusate Sodium (Colace Liq) 100 mg Q12H G-TUBE 05/13/16 14:00 05/19/16 04:13 Magnesium Hydroxide (Milk Of Magnevonne Liq) 30 ml Q12H PRN PO CONSTIPATION 05/13/16 13:15 Sennosides (Senna Liq) 17.6 mg Q12H PRN G-TUBE CONSTIPATION 05/13/16 13:15 Miscellaneous Information 1 Q361D XX 05/13/16 13:15 Chlorhexidine Gluconate (Chlorhexidine 2% Cloth) Taper DAILY@04 TOP 05/14/16 04:00 05/10/17 03:59 05/19/16 04:14 Chlorhexidine Gluconate 3 pack 3 pack UNSCH PRN TOP HYGIENIC CARE 05/13/16 13:15 Potassium Chloride 100 ml @ 50 mls/hr Q2H PRN IV For Potassium 2.8 - 3.2 mEq/L 05/13/16 13:15 05/16/16 17:38 Potassium Chloride (KCl 20 Meq Premix Inj) 100 ml @ 50 mls/hr Q2H PRN IV For Potassium 2.8 - 3.2 mEq/L 05/13/16 13:15 Potassium Chloride 40 meq 40 meq UNSCH PRN PO/TUBE For Potassium 3.3 - 3.5 mEq/L 05/13/16 13:15 Potassium Chloride 100 ml @ 25 mls/hr UNSCH PRN IV For Potassium 3.3 - 3.5 mEq/L 05/13/16 13:15 05/17/16 10:08 Potassium Chloride 100 ml @ 50 mls/hr Q2H PRN IV For Potassium 3.3 - 3.5 mEq/L 05/13/16 13:15 Magnesium Sulfate/ Sodium Chloride (Magnesium Sulfate Inj/NS Inj) 100 ml @ 50 mls/hr UNSCH PRN IV For Magnesium 0.9 - 1.1 mg/dL 05/13/16 13:15 Magnesium Oxide 800 mg 800 mg UNSCH PRN PO For Magnesium 1.2 - 1.6 mg/dL 05/13/16 13:15 Magnesium Sulfate/ Sodium Chloride (Magnesium Sulfate Inj/NS Inj) 100 ml @ 50 mls/hr UNSCH PRN IV For Magnesium 1.2 - 1.6 mg/dL 05/13/16 13:15 Potassium Phosphate 2000 mg 2,000 mg Q4H PRN PO For Phosphorus < 2.5 mg/dL 05/13/16 13:15 Sodium Phosphate/ Sodium Chloride (Sodium Phosphate Inj/NS 250 ml Inj) 250 ml @ 42 mls/hr UNSCH PRN IV For Phosphorus < 2.5 mg/dL 05/13/16 13:15 05/14/16 02:11 Potassium Chloride (KCl 40 Meq/30 ml Liq) 40 meq UNSCH PRN PO/TUBE SEE LABEL COMMENTS 05/13/16 13:15 Potassium Phosphate 2000 mg 2,000 mg UNSCH PRN PO/TUBE SEE LABEL COMMENTS 05/13/16 13:15 Potassium Phosphate/Sodium Chloride (Potassium Phosphate Inj/NS 250 ml Inj) 260 ml @ 42 mls/hr UNSCH PRN IV SEE LABEL COMMENTS 05/13/16 13:15 Chlorhexidine Gluconate (Peridex 0.12% Liq) 15 ml BID@08,20 MT 05/13/16 20:00 05/19/16 07:27 Dextrose (D50w (Vial) Inj) 25 ml UNSCH PRN IV PUSH HYPOGLYCEMIA-SEE COMMENTS 05/13/16 13:15 Glucagon 1 mg 1 mg UNSCH PRN OTHER HYPOGLYCEMIA-SEE COMMENTS 05/13/16 13:15 Fentanyl Citrate 250 ml @ 0 mls/hr TITRATE IV 05/14/16 10:15 05/19/16 04:15 Ampicillin Sodium/ Sulbactam Sodium 1500 mg/Sodium Chloride 100 ml @ 200 mls/hr Q6H IV 05/14/16 16:00 05/21/16 15:59 05/19/16 09:59 Phenylephrine HCl/ Dextrose (Neosynephrine Inj/D5W 500 ml Inj) 500 ml @ 0 mls/hr TITRATE IV 05/15/16 18:15 05/16/16 17:52 Terbutaline Sulfate 1 mg 1 mg UNSCH PRN SQ For Extravasation 05/15/16 17:15 Sodium Chloride (NS 1000 ml Inj) 1,000 ml @ 125 mls/hr Q8H IV 05/16/16 14:00 05/19/16 09:59 Artificial Tears (Lacrilube Opht Oint) 1 applic TID EACH EYE 05/16/16 18:00 05/19/16 07:57 Lactulose (Lactulose Liq) 30 ml DAILY PO 05/18/16 09:00 05/19/16 07:56 Bisacodyl (Dulcolax Supp) 10 mg DAILY RECTAL 05/18/16 12:00 05/19/16 07:56 Metoclopramide HCl (Reglan Inj) 10 mg Q8HR IV PUSH 05/18/16 14:00 05/19/16 04:14 Labetalol HCl (Trandate Inj) 10 mg Q4H PRN IV PUSH SYS BP GREATER THAN 160 MMHG 05/18/16 18:30 Hydralazine HCl (Apresoline Inj) 10 mg Q4H PRN IV PUSH SBP >160 05/18/16 18:30 (Jessica Lorenzana) Medical Decision Making MDM Remarks 51 y/o male s/p left craniectomy with evacuation large intracranial hemorrhage with intraventricular extension, s/p placement of ventriculostomy drain flap remains tight and full, poor neurological exam, post decompression f/u CT Brain 05/15 with 1.5 cm mildine shift, edema and extensive IVH (Jessica Lorenzana) Plan Plan Remarks keep ventriculostomy with ICP monitoring palliative care to meet with family again tomorrow, now a DNR status cont nonchemical DVT prophylaxis in view of ICH prognosis appears poor, his flap remains full and tight, no significant improvements to neuro exam cont neuro checks, cont f/u exam dw nursing (Jessica Lorenzana) Attending Statement The exam, history, and the medical decision-making described in the above note were completed with the assistance of the mid-level provider. I reviewed and agree with the findings presented. I attest that I had a [id number] encounter with the patient on the same day, and personally performed and documented my assessment and findings in the medical record. (Quan James MD) Jessica Lorenzana May 19, 2016 11:17 Quan James MD May 20, 2016 11:40
[2016-05-19] MEDS ORDERED: LORazepam 2 MG/ML VIAL IVS PRN (23:30)
[2016-05-19] MEDS ORDERED: FOSPHENYTOIN INJ 1,000 MGPE in SODIUM CHLORIDE 0.9% INJ 50 ML IV ONE (23:30)
[2016-05-20] VITALS (19 sets, daily range): BP systolic 130–158; BP diastolic 71–80; PULSE 72–86; RESP 21; TEMP 97.8–99.5; O2SAT 94–100
[2016-05-20] MEDS: DOCUSATE SODIUM 100 MG/10 ML UDC G-TUBE SCH ×2 (01:22→13:52)
[2016-05-20] MEDS: fentaNYL DRIP 250 ML IV SCH ×2 (01:23→11:41)
[2016-05-20] MEDS: AMPICILLIN-SULBACTAM INJ 1,500 MG in SODIUM CHLORIDE 0.9% INJ 100 ML IV SCH ×4 (03:12→21:42)
[2016-05-20] MEDS: RESP: ALBUTEROL 2.5 MG/IPRATROPIUM 0.5 MG NEB (SCH) INH ×4 (03:13→20:07)
[2016-05-20] MEDS: CHLORHEXIDINE GLUCONATE 2 % 1 PACK (2 CLOTHS) TOP SCH (03:13)
[2016-05-20] MEDS: SODIUM CHLOR 0.9% 1000 ML INJ 1,000 ML IV SCH ×2 (03:13→21:40)
[2016-05-20 05:34] LABS: HEMATOCRIT 29.8 % (39.0-51.0); MEAN CELL VOLUME 80.5 FL (80.0-100.0); MEAN CORPUSCULAR HGB CONC 33.5 % (32.0-36.0); PLATELET COUNT 279 TH/MM3 (150-450); RED CELL DISTRIBUTION WIDTH 14.2 % (11.6-17.2)
[2016-05-20 05:40] LABS: HEMO FLAGS AUTO DIFF
[2016-05-20 05:56] LABS: BICARBONATE 26.8 MEQ/L (21.0-32.0); POTASSIUM 4.3 MEQ/L (3.5-5.1)
[2016-05-20] MEDS: INSULIN ASPART SUPPLEMENTAL SCALE SQ SCH ×4 (06:05→21:00)
[2016-05-20] MEDS: METOCLOPRAMIDE HCL 10 MG/2 ML VIAL IV PUSH SCH ×3 (06:12→21:42)
[2016-05-20] MEDS: CHLORHEXIDINE 0.12% (ORAL KIT) 15 ML CUP MT SCH ×2 (08:00→21:39)
[2016-05-20] MEDS: LACTULOSE SYRUP 20 GM/30 ML CUP PO SCH (08:49)
[2016-05-20] MEDS: PANTOPRAZOLE SODIUM 40 MG VIAL IV SCH (08:49)
[2016-05-20] MEDS: ARTIFICIAL TEARS OPTH OINT 3.5 APPLIC/3.5 GM TUBO EACH EYE SCH ×3 (08:49→17:34)
[2016-05-20] MEDS: BISACODYL 10 MG SUPP RECTAL SCH (08:49)
[2016-05-20] MEDS: SODIUM CHLORIDE 0.9% FLUSH 5 ML FLUSH IV FLUSH SCH ×2 (08:49→21:40)
[2016-05-20 09:04] LABS: BANDS 8 % (0-6); EOSINOPHILS 4 % (0-4); METAMYELOCYTES 1 % (0-1); MYELOCYTES 2 % (0-0); NEUTROPHIL # MANUAL DIFF 8.1 TH/MM3 (1.8-7.7); POLYS (SEG NEUTROPHILS) 63 % (16-70); WBC DIFF SAMPLE 100
[2016-05-20 09:07] LABS: PLATELET ESTIMATE SMEAR NORMAL (NORMAL); PLATELET MORPHOLOGY NORMAL (NORMAL); SCAN/DIFF FINAL DIFF MANUAL
[2016-05-20 09:08] LABS: STOMATOCYTES 1+ (NORMAL); TARGET CELLS 1+ (NORMAL)
--- NOTE | 2016-05-20 10:56 | HHI.CCPN ---
Subjective Remarks/Hospital Course 51-year-old morbidly obese male ,with unknown medical history, presented to the ED this am. Per EMS report, the patient was found down on a park bench, unresponsive, coarse respirations.EMS attempted to intubate the patient due to coarse respiration and not protecting airway, and were unsuccessful on scene. He was brought into the ED for unresponsiveness. No family or individuals were present to provide any history. The patient was intubated in the ED. Patient was noted to be hypothermic, temperature 95.0, warming methods were initiated via IV fluid and Leslie Hugger. Imaging studies were performed in the ED, T of the brain noted a large left parietal hemorrhage , neurosurgery was consulted. Dr. Turner evaluated the patient, and critical care medicine was consulted for treatment and management. The patient was then emergently transferred to the OR for evacuation of hematoma with right ventriculostomy placement. 05/14 Afebrile. The patient is status post evacuation of large left frontal temporal ICH. Overnight the patient had increasing urinary output, approximately 028422 cc/hr, for approximately 3 hours with resolution of polyuria. The patient remains sedated on propofol infusion. Cerebral perfusion pressures have been 60-86, throughout the night. 05/15 The patient became hypothermic yesterday afternoon, temperature 95.0 requiring supplemental heat with Bairhugger . Initial blood culture revealed gram-positive pleomorphic rods, ID was consulted, Dr. Duff and patient was placed on Unasyn. Repeat CT head this a.m. shows continued mass effect. CPP remains 6580. 05/16 No change in neurological evaluation with cessation of sedation. ANDRÉS drains were removed this a.m.. ICPs became elevated yesterday afternoon requiring Versed and Fentanyl infusion. Last evening, the patient required addition of phenylephrine to maintain adequate MAP. Overnight, the patient's urine output was decreased, the patient received 1 L bolus of normal saline. 05/17 Afebrile. Resolution of oliguria, the patient remains on phenylephrine for vasopressor support. ICPs stable overnight, the patient continues on Versed and fentanyl infusions. Cessation of all sedation, reveals no change in neurological evaluation, pupils nonreactive, flaccid to deep pain stimulation, spontaneous ventilations over mechanical ventilation. Extensive discussion with family yesterday, family on aware of events leading up to admission to hospital. Family informed of poor prognosis, palliative care consult initiated for discussion of goals of care. 05/18 Tube feeds have been on hold since yesterday at 2 PM due to elevated residuals at 300. No bowel movement since admission. Off phenylephrine since yesterday about 5 pm. No significant neuro change. Remain off versed, was only started briefly yesterday due to hypertension/tachycardia when repositioned in bed. Ventric not draining well, neurosurgery aware and Margeaux flushed. ICP 6-8 Subjective: 05/19 ICP reading 22-24. Ventric not draining and NSG aware. Given versed bolus and adjusted vent to target End Tidal 30-35 (PaCO2 35-40). Had a bowel movement yesterday. Tolerating tube feed overnight. 05/20 New onset of seizures last night. ICPs have been in the 20s. Ativan ordered PRN.Family meeting planned for darrell to continue discussion of goals of care. Objective Vital Signs Date Time Temp Pulse Resp B/P Pulse Ox O2 Delivery O2 Flow Rate FiO2 05/20/16 10:00 75 05/20/16 08:07 97 35 05/20/16 08:00 98.6 21 141/71 05/16/16 07:00 Mechanical Ventilator Intake and Output 05/19/16 05/19/16 05/20/16 08:00 16:00 00:00 Intake Total 1456 ml 1477 ml 855 ml Output Total 1850 ml 2350 ml 3707 ml Balance -394 ml -873 ml -2852 ml Result Diagram: 05/20/16 0515 05/20/16 0515 Imaging Last Impressions Chest X-Ray 05/16/16 0000 Signed Impressions: Service Date/Time: April 07:14 - CONCLUSION: Stable chest x-ray with mild airspace consolidation at the left lung base and atelectasis at the right lung base. Jose De Jesus Sheffield MD Head CT 05/15/16 0600 Signed Impressions: Service Date/Time: Sunday, May 15, 2016 04:50 - CONCLUSION: 1. Status post left craniotomy with placement of a drain in the previously noted large acute intraparenchymal hemorrhage in the left mid parietal area. The large hemorrhage has decreased in size compared to the prior study. 2. There continues to be prominent mass effect and midline shift to the right by 1.6 cm. This maybe mildly improved compared to the prior study when it was measured at 2.0 cm. 3. There continues to be extensive and diffuse intraventricular hemorrhage. 4. There continues to be cerebral edema in the left cerebral hemisphere. 5. There is intracranial air characteristic of recent surgery. Tommy Gupta MD Neck CTA 05/13/16 0000 Signed Impressions: Service Date/Time: Friday, May 13, 2016 18:55 - CONCLUSION: 1. Examination negative for carotid stenosis. Minimal calcific plaque at the carotid bifurcations. Great vessel origins patent. Woo Hernandes MD Head CTA 05/13/16 0000 Signed Impressions: Service Date/Time: Friday, May 13, 2016 18:55 - CONCLUSION: 1. Questionable aneurysm versus focal extravasation of contrast around the distal left middle cerebral artery measuring up to 8 mm in diameter. This may be better evaluated angiographically. Intracranial vasospasm present. Woo Hernandes MD Last [address] 05/15/16 0600 Signed Impressions: Service Date/Time: Sunday, May 15, 2016 04:50 - CONCLUSION: 1. Status post left craniotomy with placement of a drain in the previously noted large acute intraparenchymal hemorrhage in the left mid parietal area. The large hemorrhage has decreased in size compared to the prior study. 2. There continues to be prominent mass effect and midline shift to the right by 1.6 cm. This maybe mildly improved compared to the prior study when it was measured at 2.0 cm. 3. There continues to be extensive and diffuse intraventricular hemorrhage. 4. There continues to be cerebral edema in the left cerebral hemisphere. 5. There is intracranial air characteristic of recent surgery. Tommy Gupta MD Chest X-Ray 05/15/16 0600 Signed Impressions: Service Date/Time: Sunday, May 15, 2016 02:45 - CONCLUSION: Stable scattered areas of atelectasis in the right lung. Otherwise, no other new or significant changes. Tommy Gupta MD Last Impressions Head CT 05/13/16 0836 Signed Impressions: Service Date/Time: Friday, May 13, 2016 09:57 - CONCLUSION: 1. There is a large left parietal hemorrhage measuring 6.5 x 7.5 cm which has ruptured into the ventricular system. There is 2 cm of left to right falcine shift and some degree of downward herniation as well. Nomi Conti MD Chest X-Ray 05/13/16 0836 Signed Impressions: Service Date/Time: Friday, May 13, 2016 08:42 - CONCLUSION: 1. ET tube in good position. 2. Widening of the mediastinum. CT imaging of the thorax with contrast is warranted for further assessment. Nomi Conti MD Objective Remarks Drips: Fentanyl 50 g/hr 0.9 NaCl at 125 L per hour GENERAL: Super morbidly obese male intubated and sedated. SKIN: Warm and dry. HEAD: Atraumatic. Normocephalic. L Ventric in place +5cm, not draining. EYES: R pupil 5 mm and nonreactive, left pupil 4 mm and nonreactive. Mild conjunctival edema B/L. + corneal reflex right eye, absent corneal reflex on the left.. No scleral icterus. No injection or drainage. ENT: No nasal bleeding or discharge. Mucous membranes pink and moist. Orotracheally intubated NECK: Trachea midline. Unable to assess JVD, secondary to body habitus. CARDIOVASCULAR: Normal rate, regular rhythm. S1,S2 RESPIRATORY: No accessory muscle use. Clear to auscultation. Breath sounds equal bilaterally. GASTROINTESTINAL: Abdomen soft, non-tender, nondistended. No guarding. Old well -healed midline surgical scar noted . Tube feeds running at 40 mL/hr. MUSCULOSKELETAL: Extremities without clubbing, cyanosis. 1+ extremity edema. NEUROLOGICAL: Extremities flaccid to deep noxious central and peripheral stimuli. Overbreathing vent. Absent left corneal reflex. Pupils as per above. Urinary Catheter: Yes Date of Insertion: May 13, 2016 Vascular Central Line Catheter: Yes Date of Insertion: May 13, 2016 Line: Central Venous Catheter Side: Left Location: Subclavian (monitor CVP. Administration of vasoactive medications.) A/P Assessment and Plan This is a 51-year-old morbidly obese male, found down, unresponsive, with shallow respirations, hypoxia for unknown period of time. Upon presentation to the ED, initial exam GCS 3, with stents or posturing on the right to deep pain, and no pupillary response. The patient was found to have a large ICH, status post evacuation. Plan by systems: Neurologic: Large left frontal temporal hemorrhage with midline shift S/P craniotomy evacuation of left frontotemporal hemorrhage, and ventriculostomy placement 05/13/16 Unresponsiveness Seizures - GCS 3T- unresponsive to deep pain. Does have some brainstem reflexes including overbreathing vent and intact right corneal. -Fentanyl increased to 250 mcg/hr in view of ICP in 20s. Given Versed bolus 4 mg IV. -ICP 22-24. -Staple line clean dry and intact without erythema or drainage. -CT brain 05/13-large left parietal hemorrhage measuring 6.5 x 7.5 cm which has ruptured into the ventricular system. 2 cm of [id number] falcine shift and some downward herniation -CT brain 05/15-prominent mass effect 1.6 cm midline shift to the right, diffuse intraventricular hemorrhage, cerebral edema left hemisphere -Neurosurgery, Dr Turner following. Dr. James covering this weekend, aware ventric not draining. No further intervention planned. Respiratory: Acute Hypoxic and hypercarbic respiratory failure -Mechanical ventilation, AC mode 650/5/0.35, Maintain End tidal 30-35. -Maintain O2 sat greater than 92% -Scheduled bronchodilators every 6 hours, and every 2 hours when necessary Cardiovascular: H/O Hypertension -Maintain MAP > 65 mmHg, and CPP >60. Phenylephrine if needed to maintain CPP -ECHO 05/14- EF50-55%, no RWMA FEN/Renal: Oliguria (resolved) Prerenal Azotemia (resolved) Hypophosphatemia-resolved -Maintain Concepcion -Monitor sodium -Decrease NS to 50 mL/hr -Replete electrolytes per ICU protocol FEN/GI: Morbid obesity Gastric ileus, resolved. -Initiated reglan 10 mg IV q8 hours due to high residuals and not tolerating tube feeds.. KUB - 05/18 normal bowel gas pattern On bowel regimen with colace, senna, lactulose 30 ml daily, Dulcolax [place]. -Tube feeds- Vital Hi Protein 65cc/hr -Monitor BMP Heme/ID: -Monitor CBC -Follow-up blood culture results 05/14 -Gram positive Pleomorphic rods -Urine 05/15 - positive Strep Pneumo Antigen -ID following. -Dr. Duff -Repeat blood cultures per ID05/14 -NGTD -05/14Sputum culture- NGTD -Legionella urine antigen- neg - Influenza A&B-neg On unasyn 05/14 (previously received rocephin). Anticipated stop date ordered for 05/21/16 Endocrine: -Glucose monitoring every 6 hours per ICU protocol - TSH 0.137. Followup T4. Cortisol was normal. -- SSI Prophylaxis: GI Prophylaxis Protonix IV DVT Prophylaxis -- SCDs No pharmacological DVT prophylaxis. will defer to neurosurgery Lines: Peripheral IVs x 2 . Central line left subclavian, left radial a line OR, #8 Dispo: Dr. Salazar has discussed with family, poor prognosis, with no meaningful recovery - family wishes to discuss goals of care. Palliative care consult initiated. Family to reconvene today regarding goals of care. Discussed with RN. This patient remains critically ill with one or more organ systems which are or may become a threat to life. I have spent in excess of 37 minutes discontinuously in the care and management of this patient. This time is exclusive of procedures, and includes, but is not limited to, evaluation of the patient, review of the medical record, discussions with family, consultants, nursing staff, or respiratory therapy, and documentation in the medical record. Physician Sheree Deal MD May 20, 2016 10:56
--- NOTE | 2016-05-20 11:23 | HHI.HCPN ---
Reason for visit a. To assist with evaluation and management of symptoms including: Dyspnea b. To assist medical decision maker(s) with: better understanding of current medical conditions; weighing benefits/burdens of medical treatment options; making medical treatment decisions. . Subjective/Interval History INTERVAL NOTE: The patient remains unresponsive. Over the weekend, he had some intolerance to the artificial nutrition and it had to be held for some time. Last night, he developed seizure activity, and he has been started on Dilantin. There are no apparent signs of improvement. As per the initial consultation note of 05/17/16 by Donnell Roman MD: This homeless 51-year-old male, with a past history of chronic back pain, obesity, and hypertension, was found down/unresponsive on 05/13/16. First responders did not feel he was protecting his airway, but they were unable to intubate him en route to the hospital. He remained unresponsive. At the emergency department, RS INTUBATION was accomplished, and findings included: * Unresponsive * Temp 95.0, pulse 67, respirations 18 on the ventilator, pressure 147/69 * Oxygen saturation 100% on the ventilator * White count 10.3, hemoglobin 12.2 * Sodium 134, creatinine 0.89, albumin 3.8 * Urine drug screen and alcohol levels negative * Chest x-ray with widened mediastinum and bilateral infiltrates * CT of the head revealed a large left parietal hemorrhage with 2 cm left to right falcine shift Neurosurgery evaluated the patient. They were unable to reach family, and took the patient emergently to the operating room where he underwent a craniotomy with evacuation of the hemorrhage and placement of a right frontal ventriculostomy. He has been in the ISC since then. His only responses are a minimal cough, minimal corneal reflex, and he is breathing some around the ventilator. He is otherwise unresponsive. He was off sedation today for several hours, but his blood pressure began rising, causing an increase in his ICP and the restarting of some sedation. By the day after admission, blood cultures were positive for gram-positive bacteria, and the patient was felt to have aspiration pneumonia. He was kept on antibiotics. As the prognosis is felt to be dismal, Palliative Care was consulted to assist with symptom management and to enter into discussions with family members regarding the prognosis, as well as the benefits and burdens of the various treatment choices now.. . Family/friend interactions Medical student Maegan Gomez and I met with multiple family members, including decision maker Melinda Amador, niece (nurse) Isadora and her Walt, cousin (nurse) Shelly, nephew Shaji, and one other relative. We reviewed the patient's brain injury, the very poor prognosis, the seizures that have developed, and even the intolerance to the artificial nutrition this weekend. All present now agree that the patient should have life support withdrawn, and he should be allowed to naturally and peacefully. Melinda requests that we arranged to withdraw on Friday. Advance Directives Advance Directive Specifics Health Care Surrogate(s): Of the patient's 2 siblings, 1 sister and brother defer to the third sister Melinda for decision making. There were no advance directives. . Objective Vital Signs Date Time Temp Pulse Resp B/P Pulse Ox O2 Delivery O2 Flow Rate FiO2 05/20/16 10:00 75 05/20/16 08:07 97 35 05/20/16 08:07 97 35 05/20/16 08:00 98.6 75 21 141/71 96 05/20/16 08:00 82 05/20/16 08:00 35 05/20/16 06:00 72 05/20/16 04:43 95 35 05/20/16 04:00 80 05/20/16 04:00 99.1 80 21 130/73 94 05/20/16 04:00 35 05/20/16 02:00 86 05/20/16 00:19 95 35 05/20/16 00:00 35 05/20/16 00:00 99.1 77 21 152/80 100 05/20/16 00:00 77 05/19/16 22:00 75 05/19/16 20:17 97 35 05/19/16 20:00 77 05/19/16 20:00 35 05/19/16 20:00 99.1 74 21 130/66 97 05/19/16 18:00 75 05/19/16 16:00 77 05/19/16 16:00 99.0 77 21 149/69 98 05/19/16 16:00 35 05/19/16 14:57 99 35 05/19/16 14:00 71 05/19/16 12:00 35 05/19/16 12:00 68 05/19/16 12:00 98.6 68 21 144/70 94 Intake & Output 05/20/16 05/20/16 07:00 19:00 Intake Total 1769 ml Output Total 6336 ml Balance -4567 ml Intake IV Total 1528 ml Tube Feeding 181 ml Other 60 ml Output Urine Total 6325 ml Gastric Drainage Total 0 ml Drainage Total 11 ml # Bowel Movements 1 Physical Exam CONSTITUTIONAL/GENERAL: This is an adequately nourished, obese patient, in no apparent distress. Unresponsive in the ISC TUBES/LINES/DRAINS: peripheral IVs, left subclavian, SCDs, ET tube SKIN: No jaundice, rashes, or lesions. HEAD: Stapled incisions, ventriculostomy drain. Normocephalic. NECK: Trachea midline. Supple, nontender. No palpable thyroid enlargement or nodularity. CARDIOVASCULAR: Regular rate and rhythm without murmurs, gallops, or rubs. No JVD. Peripheral pulses symmetric. RESPIRATORY/CHEST: Symmetric, unlabored respirations. Clear to auscultation. Breath sounds equal bilaterally. No wheezes, rales, or rhonchi. GASTROINTESTINAL: Abdomen soft, obese, nondistended. No hepato-splenomegaly, or palpable masses. Bowel sounds present. MUSCULOSKELETAL: Extremities without clubbing, cyanosis, or edema. No effusion noted. No calf tenderness. No mottling or clubbing. NEUROLOGICAL: Unresponsive PSYCHIATRIC: Unable to evaluate due to his clinical condition . Diagnostic Tests Laboratory Laboratory Tests Test 05/17/16 05/18/16 05/18/16 05/18/16 18:08 03:55 04:59 21:52 Potassium Level 4.0 MEQ/L 4.0 MEQ/L (3.5-5.1) (3.5-5.1) White Blood Count 8.6 TH/MM3 (4.0-11.0) Red Blood Count 3.41 MIL/MM3 (4.50-5.90) Hemoglobin 9.4 GM/DL (13.0-17.0) Hematocrit 27.8 % (39.0-51.0) Mean Corpuscular Volume 81.6 FL (80.0-100.0) Mean Corpuscular Hemoglobin 27.6 PG (27.0-34.0) Mean Corpuscular Hemoglobin 33.8 % Concent (32.0-36.0) Red Cell Distribution Width 14.7 % (11.6-17.2) Platelet Count 212 TH/MM3 (150-450) Mean Platelet Volume 7.1 FL (7.0-11.0) Sodium Level 143 MEQ/L (136-145) Chloride Level 109 MEQ/L (98-107) Carbon Dioxide Level 26.0 MEQ/L (21.0-32.0) Anion Gap 8 MEQ/L (5-15) Blood Urea Nitrogen 9 MG/DL (7-18) Creatinine 0.52 MG/DL (0.60-1.30) Estimat Glomerular Filtration 204 ML/MIN Rate (>89) Random Glucose 107 MG/DL (74-106) Calcium Level 8.0 MG/DL (8.5-10.1) Phosphorus Level 4.0 MG/DL (2.5-4.9) Magnesium Level 2.5 MG/DL (1.5-2.5) Blood Gas Puncture Site ART LINE ART LINE Blood Gas Patient Temperature 98.6 98.6 Blood Gas HCO3 23 mmol/L 24 mmol/L (22-26) (22-26) Blood Gas Base Excess -0.8 mmol/L -1.0 mmol/L (-2-2) (-2-2) Blood Gas Oxygen Saturation 95 % (90-100) 96 % (90-100) Arterial Blood pH 7.41 7.37 (7.380-7.420) (7.380-7.420) Arterial Blood Partial 38 mmHg (38-42) 42 mmHg (38-42) Pressure CO2 Arterial Blood Partial 91 mmHg 99 mmHg Pressure O2 (61-120) (61-120) Arterial Blood Oxygen Content 13.3 Vol % 13.6 Vol % (12.0-20.0) (12.0-20.0) Arterial Blood 1.1 % (0-4) 1.0 % (0-4) Carboxyhemoglobin Arterial Blood Methemoglobin 0.9 % (0-2) 0.9 % (0-2) Blood Gas Hemoglobin 9.9 G/DL 10.1 G/DL (12.0-16.0) (12.0-16.0) Oxygen Delivery Device VENTILATOR VENTILATOR Blood Gas Liter Flow L/M Blood Gas Ventilator Setting [facility] AC/16/650/PEEP5 Blood Gas Inspired Oxygen 35 % 35 % Test 05/19/16 05/19/16 05/20/16 03:15 23:25 05:15 Sodium Level 138 MEQ/L 136 MEQ/L 134 MEQ/L (136-145) (136-145) (136-145) Potassium Level 4.3 MEQ/L 4.3 MEQ/L (3.5-5.1) (3.5-5.1) Chloride Level 105 MEQ/L 99 MEQ/L (98-107) (98-107) Carbon Dioxide Level 26.5 MEQ/L 26.8 MEQ/L (21.0-32.0) (21.0-32.0) Anion Gap 7 MEQ/L (5-15) 8 MEQ/L (5-15) Blood Urea Nitrogen 12 MG/DL (7-18) 12 MG/DL (7-18) Creatinine 0.53 MG/DL 0.53 MG/DL (0.60-1.30) (0.60-1.30) Estimat Glomerular Filtration 199 ML/MIN 199 ML/MIN Rate (>89) (>89) Random Glucose 94 MG/DL 110 MG/DL (74-106) (74-106) Calcium Level 8.4 MG/DL 9.2 MG/DL (8.5-10.1) (8.5-10.1) Free Thyroxine 0.68 NG/DL (0.76-1.46) Urine Specific [place] 1.008 (1.002-1.035) White Blood Count 11.0 TH/MM3 (4.0-11.0) Red Blood Count 3.70 MIL/MM3 (4.50-5.90) Hemoglobin 10.0 GM/DL (13.0-17.0) Hematocrit 29.8 % (39.0-51.0) Mean Corpuscular Volume 80.5 FL (80.0-100.0) Mean Corpuscular Hemoglobin 27.0 PG (27.0-34.0) Mean Corpuscular Hemoglobin 33.5 % Concent (32.0-36.0) Red Cell Distribution Width 14.2 % (11.6-17.2) Platelet Count 279 TH/MM3 (150-450) Mean Platelet Volume 7.0 FL (7.0-11.0) Neutrophils (%) (Auto) % (16.0-70.0) Lymphocytes (%) (Auto) % (9.0-44.0) Monocytes (%) (Auto) % (0.0-8.0) Eosinophils (%) (Auto) % (0.0-4.0) Basophils (%) (Auto) % (0.0-2.0) Neutrophils # (Auto) TH/MM3 (1.8-7.7) Lymphocytes # (Auto) TH/MM3 (1.0-4.8) Monocytes # (Auto) TH/MM3 (0-0.9) Eosinophils # (Auto) TH/MM3 (0-0.4) Basophils # (Auto) TH/MM3 (0-0.2) CBC Comment AUTO DIFF Differential Total Cells 100 Counted Neutrophils % (Manual) 63 % (16-70) Band Neutrophils % 8 % (0-6) Lymphocytes % 5 % (9-44) Monocytes % 17 % (0-8) Eosinophils % 4 % (0-4) Neutrophils # (Manual) 8.1 TH/MM3 (1.8-7.7) Metamyelocytes 1 % (0-1) Myelocytes 2 % (0-0) Differential Comment FINAL DIFF MANUAL Platelet Estimate NORMAL (NORMAL) Platelet Morphology Comment NORMAL (NORMAL) Target Cells 1+ (NORMAL) Stomatocytes 1+ (NORMAL) Result Diagram: 05/20/16 0515 05/20/16 0515 Imaging Last Impressions Chest X-Ray 05/18/16 0600 Signed Impressions: Service Date/Time: Wednesday, May 18, 2016 04:50 - CONCLUSION: No significant change has occurred. Dwayne Muñoz MD Abdomen X-Ray 05/18/16 0000 Signed Impressions: Service Date/Time: Wednesday, May 18, 2016 12:06 - CONCLUSION: The bowel gas pattern is grossly within normal limits. Tommy Gupta MD Head CT 05/15/16 0600 Signed Impressions: Service Date/Time: Sunday, May 15, 2016 04:50 - CONCLUSION: 1. Status post left craniotomy with placement of a drain in the previously noted large acute intraparenchymal hemorrhage in the left mid parietal area. The large hemorrhage has decreased in size compared to the prior study. 2. There continues to be prominent mass effect and midline shift to the right by 1.6 cm. This maybe mildly improved compared to the prior study when it was measured at 2.0 cm. 3. There continues to be extensive and diffuse intraventricular hemorrhage. 4. There continues to be cerebral edema in the left cerebral hemisphere. 5. There is intracranial air characteristic of recent surgery. Tommy Gupta MD Neck CTA 05/13/16 0000 Signed Impressions: Service Date/Time: Friday, May 13, 2016 18:55 - CONCLUSION: 1. Examination negative for carotid stenosis. Minimal calcific plaque at the carotid bifurcations. Great vessel origins patent. Woo Hernandes MD Head CTA 05/13/16 0000 Signed Impressions: Service Date/Time: Friday, May 13, 2016 18:55 - CONCLUSION: 1. Questionable aneurysm versus focal extravasation of contrast around the distal left middle cerebral artery measuring up to 8 mm in diameter. This may be better evaluated angiographically. Intracranial vasospasm present. Woo Hernandes MD Procedures INTUBATION 05/13/16 Craniotomy, evacuation of hemorrhage, placement of ventriculostomy 05/13/16 . Assessment and Plan Disease Oriented Problem List: (1) large intracerebral hemorrhage, with 2 cm midline shift (2) Respiratory failure (3) aspiration pneumonia (4) obesity (5) hyperlipidemia (6) chronic back pain (7) hypertension (8) seizures Symptom Scale: (1) pain 0-10 Scale: Unable to quantify (2) dyspnea 0-10 Scale: Unable to quantify Pertinent Non-Medical Issues Psychosocial: Homeless, unmarried, no children, limited interaction with most of his family members for quite some time, but has had continued interaction with his sister Melinda. Spiritual: Taoism background, cashier wrapper visits are requested by the family. Legal: The patient lacks capacity, and he will not regain capacity for decision -making. The patient has no spouse or children or parents. He has 2 sisters and a brother, and by law decision making would fall to the majority of the 3 of them who are willing to participate. The patient's sister Mile and his brother Kee are deferring decision making to the patient's sister Melinda Amador. Ethical issues impacting care: None. . Important Contacts Patient's sister Melinda Amador: [phone] . Prognosis This patient is terminal, with no opportunity for meaningful recovery. He will either soon with withdrawal of life support, or in the upcoming weeks from the usual complications of this level of debility. . Code Status: Alternative Code Plan * ALTERNATE CODE - intubation only * GOALS: Medical student Maegan Gomez and I met with multiple family members , including decision maker Melinda Amador, niece (nurse) Isadora and her Walt, cousin (nurse) Shelly, nephew Shaji, and one other relative. We reviewed the patient's brain injury, the very poor prognosis, the seizures that have developed, and even the intolerance to the artificial nutrition this weekend. All present now agree that the patient should have life support withdrawn, and he should be allowed to naturally and peacefully. Melinda requests that we arranged to withdraw on Friday. * DECISION-MAKING: The patient has no spouse or children or parents. He has 2 sisters and a brother, and by law decision making would fall to the majority of the 3 of them who are willing to participate. The patient's sister Mile and his brother Kee are deferring decision making to the patient's sister Melinda Amador. * SYMPTOMS: It is difficult to know if the patient is perceiving any pain ( recent surgery, ICH, bedbound status) or dyspnea at this time. He is on fentanyl and the ventilator to manage the symptoms at this time. * Palliative Care will continue to follow the patient during this hospitalization. . Time Spent Total Floor Time (mins): 55 Face to Face Time (mins): 35 >50% Counseling/Coord of Care: Yes (d/w RN and w Dr. Salazar) Attestation To help prompt me to consider important information that might be impacting today's encounter and assessment, information from prior notes written by myself or my colleagues may have been "brought forward" into today's note. My signature on this note, however, is an attestation that I personally performed the exam, history, and/or decision-making noted today, and, unless otherwise indicated, the interactions with patient, family, and staff as well as the review of records all occurred today. I also attest that the listed assessment and stated plan reflect my best clinical judgment today based on the combination of historical information, prior notes, and today's exam/ interactions. When time spent is documented, it refers only to time spent today by the signer, or if indicated, combined time spent today by collaborating physician/nurse practitioner. Alma Roman MD May 20, 2016 11:23
[2016-05-20] MEDS: FOSPHENYTOIN INJ 200 MGPE in SODIUM CHLORIDE 0.9% INJ 50 ML IV SCH (11:41)
[2016-05-21] VITALS (19 sets, daily range): BP systolic 124–174; BP diastolic 75–98; PULSE 76–100; RESP 18–21; TEMP 99.2–100.8; O2SAT 94–100
[2016-05-21] MEDS: FOSPHENYTOIN INJ 200 MGPE in SODIUM CHLORIDE 0.9% INJ 50 ML IV SCH ×2 (00:55→12:08)
[2016-05-21] MEDS: DOCUSATE SODIUM 100 MG/10 ML UDC G-TUBE SCH ×2 (00:55→14:33)
[2016-05-21] MEDS: RESP: ALBUTEROL 2.5 MG/IPRATROPIUM 0.5 MG NEB (SCH) INH ×2 (03:12→08:56)
[2016-05-21] MEDS: CHLORHEXIDINE GLUCONATE 2 % 1 PACK (2 CLOTHS) TOP SCH (04:06)
[2016-05-21] MEDS: AMPICILLIN-SULBACTAM INJ 1,500 MG in SODIUM CHLORIDE 0.9% INJ 100 ML IV SCH ×2 (04:06→10:16)
[2016-05-21] MEDS: SODIUM CHLOR 0.9% 1000 ML INJ 1,000 ML IV SCH (04:07)
[2016-05-21] MEDS: fentaNYL DRIP 250 ML IV SCH (04:11)
[2016-05-21] MEDS: METOCLOPRAMIDE HCL 10 MG/2 ML VIAL IV PUSH SCH ×3 (04:11→22:00)
[2016-05-21] MEDS: INSULIN ASPART SUPPLEMENTAL SCALE SQ SCH ×4 (07:00→21:00)
[2016-05-21] MEDS: BISACODYL 10 MG SUPP RECTAL SCH (10:15)
[2016-05-21] MEDS: CHLORHEXIDINE 0.12% (ORAL KIT) 15 ML CUP MT SCH ×2 (10:15→20:00)
[2016-05-21] MEDS: PANTOPRAZOLE SODIUM 40 MG VIAL IV SCH (10:15)
[2016-05-21] MEDS: SODIUM CHLORIDE 0.9% FLUSH 5 ML FLUSH IV FLUSH SCH ×2 (10:15→21:00)
[2016-05-21] MEDS: LACTULOSE SYRUP 20 GM/30 ML CUP PO SCH (10:15)
[2016-05-21] MEDS: ARTIFICIAL TEARS OPTH OINT 3.5 APPLIC/3.5 GM TUBO EACH EYE SCH ×3 (10:15→18:00)
--- NOTE | 2016-05-21 11:28 | HHI.HCPN ---
Reason for visit a. To assist with evaluation and management of symptoms including: Dyspnea b. To assist medical decision maker(s) with: better understanding of current medical conditions; weighing benefits/burdens of medical treatment options; making medical treatment decisions. . Subjective/Interval History INTERVAL NOTE: The patient remains unresponsive. Over the weekend, he had some intolerance to the artificial nutrition and it had to be held for some time. He developed seizure activity on Friday, and he has been started on Dilantin. There are no apparent signs of improvement. Febrile last night and today. As per the initial consultation note of 05/17/16 by Donnell Roman MD: This homeless 51-year-old male, with a past history of chronic back pain, obesity, and hypertension, was found down/unresponsive on 05/13/16. First responders did not feel he was protecting his airway, but they were unable to intubate him en route to the hospital. He remained unresponsive. At the emergency department, RS INTUBATION was accomplished, and findings included: * Unresponsive * Temp 95.0, pulse 67, respirations 18 on the ventilator, pressure 147/69 * Oxygen saturation 100% on the ventilator * White count 10.3, hemoglobin 12.2 * Sodium 134, creatinine 0.89, albumin 3.8 * Urine drug screen and alcohol levels negative * Chest x-ray with widened mediastinum and bilateral infiltrates * CT of the head revealed a large left parietal hemorrhage with 2 cm left to right falcine shift Neurosurgery evaluated the patient. They were unable to reach family, and took the patient emergently to the operating room where he underwent a craniotomy with evacuation of the hemorrhage and placement of a right frontal ventriculostomy. He has been in the ISC since then. His only responses are a minimal cough, minimal corneal reflex, and he is breathing some around the ventilator. He is otherwise unresponsive. He was off sedation today for several hours, but his blood pressure began rising, causing an increase in his ICP and the restarting of some sedation. By the day after admission, blood cultures were positive for gram-positive bacteria, and the patient was felt to have aspiration pneumonia. He was kept on antibiotics. As the prognosis is felt to be dismal, Palliative Care was consulted to assist with symptom management and to enter into discussions with family members regarding the prognosis, as well as the benefits and burdens of the various treatment choices now.. . Advance Directives Advance Directive Specifics Health Care Surrogate(s): Of the patient's 2 siblings, 1 sister (Mile) and brother (Kee) defer to the third sister Melinda for decision making. There were no advance directives. . Significant change in goals: On 05/20/16, Melinda, with the agreement in support of the entire family group, requested withdrawal of life support to be accomplished on 05/22/16. . Objective Vital Signs Date Time Temp Pulse Resp B/P Pulse Ox O2 Delivery O2 Flow Rate FiO2 05/21/16 10:39 96 35 05/21/16 08:41 95 35 05/21/16 08:00 100.4 81 21 164/75 96 05/21/16 06:00 76 05/21/16 04:03 100 35 05/21/16 04:00 80 05/21/16 04:00 35 05/21/16 04:00 100.6 80 21 174/78 96 05/21/16 02:00 77 05/21/16 01:44 100 35 05/21/16 00:00 35 05/21/16 00:00 81 05/21/16 00:00 99.9 81 21 160/77 96 05/20/16 22:31 100 35 05/20/16 22:00 76 05/20/16 20:00 99.5 76 21 152/76 95 05/20/16 20:00 76 05/20/16 20:00 35 05/20/16 19:58 100 35 05/20/16 19:58 100 35 05/20/16 18:00 78 05/20/16 16:34 95 35 05/20/16 16:34 95 35 05/20/16 16:00 79 05/20/16 16:00 97.8 79 21 158/76 96 05/20/16 16:00 35 05/20/16 14:00 76 05/20/16 12:36 97 35 05/20/16 12:00 98.6 76 21 150/74 97 05/20/16 12:00 76 05/20/16 12:00 35 Intake & Output 05/21/16 05/21/16 07:00 19:00 Intake Total 3036 ml 80 ml Output Total 6611 ml Balance -3575 ml 80 ml Intake IV Total 2337 ml Tube Feeding 639 ml Other 60 ml 80 ml Output Urine Total 6600 ml Gastric Drainage Total 0 ml Drainage Total 11 ml # Bowel Movements 0 Physical Exam CONSTITUTIONAL/GENERAL: This is an adequately nourished, obese patient, in no apparent distress. Unresponsive in the ISC TUBES/LINES/DRAINS: peripheral IVs, left subclavian, SCDs, ET tube HEAD: Stapled incisions, ventriculostomy drain. Normocephalic. NECK: Trachea midline. Supple, nontender. No palpable thyroid enlargement or nodularity. CARDIOVASCULAR: Regular rate and rhythm without murmurs, gallops, or rubs. No JVD. Peripheral pulses symmetric. RESPIRATORY/CHEST: Symmetric, unlabored respirations. Clear to auscultation. Breath sounds equal bilaterally. No wheezes, rales, or rhonchi. GASTROINTESTINAL: Abdomen soft, obese, nondistended. No hepato-splenomegaly, or palpable masses. Bowel sounds present. MUSCULOSKELETAL: Extremities without clubbing, cyanosis, or edema. No effusion noted. No calf tenderness. No mottling or clubbing. NEUROLOGICAL: Unresponsive PSYCHIATRIC: Unable to evaluate due to his clinical condition . Diagnostic Tests Laboratory Laboratory Tests Test 05/18/16 05/19/16 05/19/16 05/20/16 21:52 03:15 23:25 05:15 Blood Gas Puncture Site ART LINE Blood Gas Patient Temperature 98.6 Blood Gas HCO3 24 mmol/L (22-26) Blood Gas Base Excess -1.0 mmol/L (-2-2) Blood Gas Oxygen Saturation 96 % (90-100) Arterial Blood pH 7.37 (7.380-7.420) Arterial Blood Partial 42 mmHg (38-42) Pressure CO2 Arterial Blood Partial 99 mmHg Pressure O2 (61-120) Arterial Blood Oxygen Content 13.6 Vol % (12.0-20.0) Arterial Blood 1.0 % (0-4) Carboxyhemoglobin Arterial Blood Methemoglobin 0.9 % (0-2) Blood Gas Hemoglobin 10.1 G/DL (12.0-16.0) Oxygen Delivery Device VENTILATOR Blood Gas Ventilator Setting AC/16/650/PEEP5 Blood Gas Inspired Oxygen 35 % Sodium Level 138 MEQ/L 136 MEQ/L 134 MEQ/L (136-145) (136-145) (136-145) Potassium Level 4.3 MEQ/L 4.3 MEQ/L (3.5-5.1) (3.5-5.1) Chloride Level 105 MEQ/L 99 MEQ/L (98-107) (98-107) Carbon Dioxide Level 26.5 MEQ/L 26.8 MEQ/L (21.0-32.0) (21.0-32.0) Anion Gap 7 MEQ/L (5-15) 8 MEQ/L (5-15) Blood Urea Nitrogen 12 MG/DL (7-18) 12 MG/DL (7-18) Creatinine 0.53 MG/DL 0.53 MG/DL (0.60-1.30) (0.60-1.30) Estimat Glomerular Filtration 199 ML/MIN 199 ML/MIN Rate (>89) (>89) Random Glucose 94 MG/DL 110 MG/DL (74-106) (74-106) Calcium Level 8.4 MG/DL 9.2 MG/DL (8.5-10.1) (8.5-10.1) Free Thyroxine 0.68 NG/DL (0.76-1.46) Urine Specific Connelly 1.008 (1.002-1.035) White Blood Count 11.0 TH/MM3 (4.0-11.0) Red Blood Count 3.70 MIL/MM3 (4.50-5.90) Hemoglobin 10.0 GM/DL (13.0-17.0) Hematocrit 29.8 % (39.0-51.0) Mean Corpuscular Volume 80.5 FL (80.0-100.0) Mean Corpuscular Hemoglobin 27.0 PG (27.0-34.0) Mean Corpuscular Hemoglobin 33.5 % Concent (32.0-36.0) Red Cell Distribution Width 14.2 % (11.6-17.2) Platelet Count 279 TH/MM3 (150-450) Mean Platelet Volume 7.0 FL (7.0-11.0) Neutrophils (%) (Auto) % (16.0-70.0) Lymphocytes (%) (Auto) % (9.0-44.0) Monocytes (%) (Auto) % (0.0-8.0) Eosinophils (%) (Auto) % (0.0-4.0) Basophils (%) (Auto) % (0.0-2.0) Neutrophils # (Auto) TH/MM3 (1.8-7.7) Lymphocytes # (Auto) TH/MM3 (1.0-4.8) Monocytes # (Auto) TH/MM3 (0-0.9) Eosinophils # (Auto) TH/MM3 (0-0.4) Basophils # (Auto) TH/MM3 (0-0.2) CBC Comment AUTO DIFF Differential Total Cells 100 Counted Neutrophils % (Manual) 63 % (16-70) Band Neutrophils % 8 % (0-6) Lymphocytes % 5 % (9-44) Monocytes % 17 % (0-8) Eosinophils % 4 % (0-4) Neutrophils # (Manual) 8.1 TH/MM3 (1.8-7.7) Metamyelocytes 1 % (0-1) Myelocytes 2 % (0-0) Differential Comment FINAL DIFF MANUAL Platelet Estimate NORMAL (NORMAL) Platelet Morphology Comment NORMAL (NORMAL) Target Cells 1+ (NORMAL) Stomatocytes 1+ (NORMAL) Result Diagram: 05/20/16 0515 05/20/16 0515 Procedures INTUBATION 05/13/16 Craniotomy, evacuation of hemorrhage, placement of ventriculostomy 05/13/16 . Assessment and Plan Disease Oriented Problem List: (1) large intracerebral hemorrhage, with 2 cm midline shift (2) Respiratory failure (3) aspiration pneumonia (4) obesity (5) hyperlipidemia (6) chronic back pain (7) hypertension (8) seizures Symptom Scale: (1) pain 0-10 Scale: Unable to quantify (2) dyspnea 0-10 Scale: Unable to quantify Pertinent Non-Medical Issues Psychosocial: Homeless, unmarried, no children, limited interaction with most of his family members for quite some time, but has had continued interaction with his sister Melinda. Spiritual: Buddhism background, manager immunology visits are requested by the family. Legal: The patient lacks capacity, and he will not regain capacity for decision -making. The patient has no spouse or children or parents. He has 2 sisters and a brother, and by law decision making would fall to the majority of the 3 of them who are willing to participate. The patient's sister Mile and his brother Kee are deferring decision making to the patient's sister Melinda Amador. Ethical issues impacting care: None. . Important Contacts Patient's sister Melinda Amador: [phone] . Prognosis This patient is terminal, with no opportunity for meaningful recovery. He will either soon with withdrawal of life support, or in the upcoming weeks from the usual complications of this level of debility. . Code Status: Alternative Code Plan * ALTERNATE CODE - intubation only * GOALS: We met with multiple family members on 05/20/16, including decision maker Melinda Amador, niece (nurse) Isadora and her Walt, cousin ( nurse) Shelly, nephew Shaji, and one other relative. We reviewed the patient's brain injury, the very poor prognosis, the seizures that have developed, and even the intolerance to the artificial nutrition this weekend. All family members, including HCP Melinda, now agree that the patient should have life support withdrawn so that he can be allowed to naturally and peacefully. Melinda requests that we arrange to withdraw on Friday. * DECISION-MAKING: The patient has no spouse or children or parents. He has 2 sisters and a brother, and by law decision making would fall to the majority of the 3 of them who are willing to participate. The patient's sister Mile and his brother Kee are deferring decision making to the patient's sister Melinda Amador....she is the proxy. * SYMPTOMS: It is difficult to know if the patient is perceiving any pain ( recent surgery, ICH, bedbound status) or dyspnea at this time. He is on fentanyl and the ventilator to manage the symptoms at this time. No new medicine orders at this time. In anticipation of withdrawal of life support and transition to comfort care tomorrow, I have decreased IV fluids and discontinued the artificial nutrition.. * Palliative Care will continue to follow the patient during this hospitalization. . Time Spent Total Floor Time (mins): 36 Face to Face Time (mins): 19 >50% Counseling/Coord of Care: Yes (d/w/ RN) Attestation To help prompt me to consider important information that might be impacting today's encounter and assessment, information from prior notes written by myself or my colleagues may have been "brought forward" into today's note. My signature on this note, however, is an attestation that I personally performed the exam, history, and/or decision-making noted today, and, unless otherwise indicated, the interactions with patient, family, and staff as well as the review of records all occurred today. I also attest that the listed assessment and stated plan reflect my best clinical judgment today based on the combination of historical information, prior notes, and today's exam/ interactions. When time spent is documented, it refers only to time spent today by the signer, or if indicated, combined time spent today by collaborating physician/nurse practitioner. Alma Roman MD May 21, 2016 11:28
[2016-05-21] MEDS ORDERED: LORazepam 2 MG/ML VIAL IVS PRN (11:30)
--- NOTE | 2016-05-21 17:11 | HHI.CCPN ---
Subjective Remarks/Hospital Course 51-year-old morbidly obese male ,with unknown medical history, presented to the ED this am. Per EMS report, the patient was found down on a park bench, unresponsive, coarse respirations.EMS attempted to intubate the patient due to coarse respiration and not protecting airway, and were unsuccessful on scene. He was brought into the ED for unresponsiveness. No family or individuals were present to provide any history. The patient was intubated in the ED. Patient was noted to be hypothermic, temperature 95.0, warming methods were initiated via IV fluid and Leslie Hugger. Imaging studies were performed in the ED, T of the brain noted a large left parietal hemorrhage , neurosurgery was consulted. Dr. Turner evaluated the patient, and critical care medicine was consulted for treatment and management. The patient was then emergently transferred to the OR for evacuation of hematoma with right ventriculostomy placement. 05/14 Afebrile. The patient is status post evacuation of large left frontal temporal ICH. Overnight the patient had increasing urinary output, approximately 159655 cc/hr, for approximately 3 hours with resolution of polyuria. The patient remains sedated on propofol infusion. Cerebral perfusion pressures have been 60-86, throughout the night. 05/15 The patient became hypothermic yesterday afternoon, temperature 95.0 requiring supplemental heat with Bairhugger . Initial blood culture revealed gram-positive pleomorphic rods, ID was consulted, Dr. Duff and patient was placed on Unasyn. Repeat CT head this a.m. shows continued mass effect. CPP remains 6580. 05/16 No change in neurological evaluation with cessation of sedation. ANDRÉS drains were removed this a.m.. ICPs became elevated yesterday afternoon requiring Versed and Fentanyl infusion. Last evening, the patient required addition of phenylephrine to maintain adequate MAP. Overnight, the patient's urine output was decreased, the patient received 1 L bolus of normal saline. 05/17 Afebrile. Resolution of oliguria, the patient remains on phenylephrine for vasopressor support. ICPs stable overnight, the patient continues on Versed and fentanyl infusions. Cessation of all sedation, reveals no change in neurological evaluation, pupils nonreactive, flaccid to deep pain stimulation, spontaneous ventilations over mechanical ventilation. Extensive discussion with family yesterday, family on aware of events leading up to admission to hospital. Family informed of poor prognosis, palliative care consult initiated for discussion of goals of care. 05/18 Tube feeds have been on hold since yesterday at 2 PM due to elevated residuals at 300. No bowel movement since admission. Off phenylephrine since yesterday about 5 pm. No significant neuro change. Remain off versed, was only started briefly yesterday due to hypertension/tachycardia when repositioned in bed. Ventric not draining well, neurosurgery aware and Margeaux flushed. ICP 6-8 Subjective: 05/19 ICP reading 22-24. Ventric not draining and NSG aware. Given versed bolus and adjusted vent to target End Tidal 30-35 (PaCO2 35-40). Had a bowel movement yesterday. Tolerating tube feed overnight. 05/20 New onset of seizures last night. ICPs have been in the 20s. Ativan ordered PRN.Family meeting planned for today to continue discussion of goals of care. 05/21 No seizures in the last 24 hours. Neurological status unchanged. Palliative care consult on board. The family has decided for comfort care measures to be initiated tomorrow evening. Tube feedings discontinued. Objective Vital Signs Date Time Temp Pulse Resp B/P Pulse Ox O2 Delivery O2 Flow Rate FiO2 05/21/16 16:00 35 05/21/16 16:00 97 05/21/16 16:00 100.8 18 124/98 94 Intake and Output 05/20/16 05/20/16 05/20/16 07:59 15:59 23:59 Intake Total 914 ml 1057 ml 1345 ml Output Total 2629 ml 3775 ml 3207 ml Balance -1715 ml -2718 ml -1862 ml Result Diagram: 05/20/16 0515 05/20/16 0515 Imaging Last Impressions Chest X-Ray 05/16/16 0000 Signed Impressions: Service Date/Time: April 07:14 - CONCLUSION: Stable chest x-ray with mild airspace consolidation at the left lung base and atelectasis at the right lung base. Jose De Jesus Sheffield MD Head CT 05/15/16 0600 Signed Impressions: Service Date/Time: Sunday, May 15, 2016 04:50 - CONCLUSION: 1. Status post left craniotomy with placement of a drain in the previously noted large acute intraparenchymal hemorrhage in the left mid parietal area. The large hemorrhage has decreased in size compared to the prior study. 2. There continues to be prominent mass effect and midline shift to the right by 1.6 cm. This maybe mildly improved compared to the prior study when it was measured at 2.0 cm. 3. There continues to be extensive and diffuse intraventricular hemorrhage. 4. There continues to be cerebral edema in the left cerebral hemisphere. 5. There is intracranial air characteristic of recent surgery. Tommy Gupta MD Neck CTA 05/13/16 0000 Signed Impressions: Service Date/Time: Friday, May 13, 2016 18:55 - CONCLUSION: 1. Examination negative for carotid stenosis. Minimal calcific plaque at the carotid bifurcations. Great vessel origins patent. Woo Hernandes MD Head CTA 05/13/16 0000 Signed Impressions: Service Date/Time: Friday, May 13, 2016 18:55 - CONCLUSION: 1. Questionable aneurysm versus focal extravasation of contrast around the distal left middle cerebral artery measuring up to 8 mm in diameter. This may be better evaluated angiographically. Intracranial vasospasm present. Woo Hernandes MD Last [address] 05/15/16 0600 Signed Impressions: Service Date/Time: Sunday, May 15, 2016 04:50 - CONCLUSION: 1. Status post left craniotomy with placement of a drain in the previously noted large acute intraparenchymal hemorrhage in the left mid parietal area. The large hemorrhage has decreased in size compared to the prior study. 2. There continues to be prominent mass effect and midline shift to the right by 1.6 cm. This maybe mildly improved compared to the prior study when it was measured at 2.0 cm. 3. There continues to be extensive and diffuse intraventricular hemorrhage. 4. There continues to be cerebral edema in the left cerebral hemisphere. 5. There is intracranial air characteristic of recent surgery. Tommy Gupta MD Chest X-Ray 05/15/16 0600 Signed Impressions: Service Date/Time: Sunday, May 15, 2016 02:45 - CONCLUSION: Stable scattered areas of atelectasis in the right lung. Otherwise, no other new or significant changes. Tommy Gupta MD Last Impressions Head CT 05/13/16 0836 Signed Impressions: Service Date/Time: Friday, May 13, 2016 09:57 - CONCLUSION: 1. There is a large left parietal hemorrhage measuring 6.5 x 7.5 cm which has ruptured into the ventricular system. There is 2 cm of left to right falcine shift and some degree of downward herniation as well. Nomi Conti MD Chest X-Ray 05/13/16 0836 Signed Impressions: Service Date/Time: Friday, May 13, 2016 08:42 - CONCLUSION: 1. ET tube in good position. 2. Widening of the mediastinum. CT imaging of the thorax with contrast is warranted for further assessment. Nomi Conti MD Objective Remarks Drips: Fentanyl 50 g/hr 0.9 NaCl at 125 L per hour GENERAL: Super morbidly obese male intubated and sedated. SKIN: Warm and dry. HEAD: Atraumatic. Normocephalic. L Ventriculostomy in place +5cm, not draining. EYES: R pupil 5 mm and nonreactive, left pupil 4 mm and nonreactive. Mild conjunctival edema B/L. + corneal reflex right eye, absent corneal reflex on the left.. No scleral icterus. No injection or drainage. ENT: No nasal bleeding or discharge. Mucous membranes pink and moist. Orotracheally intubated NECK: Trachea midline. Unable to assess JVD, secondary to body habitus. CARDIOVASCULAR: Normal rate, regular rhythm. S1,S2 RESPIRATORY: No accessory muscle use. Clear to auscultation. Breath sounds equal bilaterally. GASTROINTESTINAL: Abdomen soft, non-tender, nondistended. No guarding. Old well -healed midline surgical scar noted . Tube feeds running at 40 mL/hr. MUSCULOSKELETAL: Extremities without clubbing, cyanosis. 1+ extremity edema. NEUROLOGICAL: Extremities flaccid to deep noxious central and peripheral stimuli. Overbreathing vent. Absent left corneal reflex. Pupils as per above. Date of Insertion: May 13, 2016 Date of Insertion: May 13, 2016 Line: Central Venous Catheter Side: Left Location: Subclavian (monitor CVP. Administration of vasoactive medications.) A/P Assessment and Plan This is a 51-year-old morbidly obese male, found down, unresponsive, with shallow respirations, hypoxia for unknown period of time. Upon presentation to the ED, initial exam GCS 3, with stents or posturing on the right to deep pain, and no pupillary response. The patient was found to have a large ICH, status post evacuation. Plan by systems: Neurologic: Large left frontal temporal hemorrhage with midline shift S/P craniotomy evacuation of left frontotemporal hemorrhage, and ventriculostomy placement 05/13/16 Unresponsiveness Seizures - GCS 3T- unresponsive to deep pain. Does have some brainstem reflexes including overbreathing vent and intact right corneal. -Fentanyl infusing at 100 mcg/hr in view of ICP in 20s. -ICP mid 20's -Staple line clean dry and intact without erythema or drainage. -CT brain 05/13-large left parietal hemorrhage measuring 6.5 x 7.5 cm which has ruptured into the ventricular system. 2 cm of [id number] falcine shift and some downward herniation -CT brain 05/15-prominent mass effect 1.6 cm midline shift to the right, diffuse intraventricular hemorrhage, cerebral edema left hemisphere -Neurosurgery, Dr Turner following. Respiratory: Acute Hypoxic and hypercarbic respiratory failure -Mechanical ventilation, AC mode 650/5/0.35, Maintain End tidal 30-35. -Maintain O2 sat greater than 92% -Scheduled bronchodilators every 6 hours, and every 2 hours when necessary Cardiovascular: H/O Hypertension -Maintain MAP > 65 mmHg, and CPP >60. Normotensive -ECHO 05/14- EF50-55%, no RWMA FEN/Renal: Oliguria (resolved) Prerenal Azotemia (resolved) Hypophosphatemia-resolved -Maintain Concepcion -Monitor sodium -Decrease NS to 50 mL/hr -Replete electrolytes per ICU protocol FEN/GI: Morbid obesity Gastric ileus, resolved. -Initiated reglan 10 mg IV q8 hours due to high residuals and not tolerating tube feeds.. KUB - 05/18 normal bowel gas pattern On bowel regimen with colace, senna, lactulose 30 ml daily, Dulcolax UT. -Tube feeds- Vital Hi Protein 65cc/hr -Monitor BMP Heme/ID: -Monitor CBC -Follow-up blood culture results 05/14 -Gram positive Pleomorphic rods -Urine 05/15 - positive Strep Pneumo Antigen -ID following. -Dr. Duff -Repeat blood cultures per ID05/14 -NGTD -05/14Sputum culture- NGTD -Legionella urine antigen- neg - Influenza A&B-neg On unasyn 05/14 (previously received rocephin). Anticipated stop date ordered for 05/21/16 Endocrine: -Glucose monitoring every 6 hours per ICU protocol - TSH 0.137. Followup T4. Cortisol was normal. -- SSI Prophylaxis: GI Prophylaxis Protonix IV DVT Prophylaxis -- SCDs No pharmacological DVT prophylaxis. will defer to neurosurgery Lines: Peripheral IVs x 2 . Central line left subclavian, left radial a line OR, # 9 Dispo: Dr. Salazar has discussed with family, poor prognosis, with no meaningful recovery - family wishes to discuss goals of care. Palliative care on board. Family requests comfort care measures to be initiated tomorrow. Discussed with CLARIFIER. This patient remains critically ill with one or more organ systems which are or may become a threat to life. I have spent in excess of 33 minutes discontinuously in the care and management of this patient. This time is exclusive of procedures, and includes, but is not limited to, evaluation of the patient, review of the medical record, discussions with family, consultants, nursing staff, or respiratory therapy, and documentation in the medical record. Physician Sheree Deal MD May 21, 2016 17:11
--- NOTE | 2016-05-21 19:44 | HHI.NSPN ---
History Chief Complaint: intubated Interval History 51-year-old male found unresponsive on park bench 05/13/16. Brought to [facility], unresponsive. Initial CT scan with large left frontal-temporal intracranial hemorrhage with nearly 2 cm midline shift. Positive intraventricular extension. Initial examination patient with positive corneal response, gag response, with mixed flexion and extensor posturing in the extremities. 05/13/16: Left Craniotomy for evacuation of intracranial hemorrhage. 05/14/16: Patient remains intubated, sedated. Stable vital signs. Low-grade temperature. Ventriculostomy functioning well 05/16/16: Intubated, stable vital signs. Scalp drains removed, ventriculostomy remains patent Exam Results Vital Signs Date Time Temp Pulse Resp B/P Pulse Ox O2 Delivery O2 Flow Rate FiO2 05/21/16 18:00 92 05/21/16 16:00 35 05/21/16 16:00 100.8 18 124/98 94 Intake and Output 05/20/16 05/20/16 05/21/16 08:00 16:00 00:00 Intake Total 914 ml 1057 ml 1345 ml Output Total 2629 ml 3775 ml 3207 ml Balance -1715 ml -2718 ml -1862 ml Physical Examination Intubated, and on low dose sedation. Incision dry and intact Ventriculostomy in place with mild output No response to voice No eye opening CN: Pupils 5 mm nonreactive. Absent oculocephalic responses minimal b/l corneal present. no cough or gag when suctioned. Motor: No spontaneous movements. No response to deep pain all extremities Extremities: diffuse edema Medical Decision Making Impression and Plan Impression: 1. Patient remains unresponsive following left craniotomy evacuation large intracranial hemorrhage with intraventricular extension. 05/15/16 follow-up CT scan with moderate residual parenchymal intracranial and intraventricular hemorrhage but decreased midline shift. Plan: Discussed with nursing staff. They indicated the patient's family has indicated desire to withdraw the patient from ventilatory another artificial life support, likely on 05/22/16. Continuing ventilatory support. Continue ventriculostomy Non - chemical DVT prophylaxis Stakeholder Manager following Len Turner MD May 21, 2016 19:44
[2016-05-22] VITALS (11 sets, daily range): BP systolic 122–136; BP diastolic 82–93; PULSE 86–90; RESP 16–19; TEMP 98.6–99.9; O2SAT 94–96
[2016-05-22] MEDS: FOSPHENYTOIN INJ 200 MGPE in SODIUM CHLORIDE 0.9% INJ 50 ML IV SCH ×2
[2016-05-22] MEDS: DOCUSATE SODIUM 100 MG/10 ML UDC G-TUBE SCH (01:18)
[2016-05-22] MEDS: METOCLOPRAMIDE HCL 10 MG/2 ML VIAL IV PUSH SCH (01:18)
[2016-05-22] MEDS: CHLORHEXIDINE GLUCONATE 2 % 1 PACK (2 CLOTHS) TOP SCH (04:00)
[2016-05-22] MEDS: INSULIN ASPART SUPPLEMENTAL SCALE SQ SCH (06:55)
--- NOTE | 2016-05-22 11:55 | HHI.CCPN ---
Subjective Remarks/Hospital Course 51-year-old morbidly obese male ,with unknown medical history, presented to the ED this am. Per EMS report, the patient was found down on a park bench, unresponsive, coarse respirations.EMS attempted to intubate the patient due to coarse respiration and not protecting airway, and were unsuccessful on scene. He was brought into the ED for unresponsiveness. No family or individuals were present to provide any history. The patient was intubated in the ED. Patient was noted to be hypothermic, temperature 95.0, warming methods were initiated via IV fluid and Leslie Hugger. Imaging studies were performed in the ED, T of the brain noted a large left parietal hemorrhage , neurosurgery was consulted. Dr. Turner evaluated the patient, and critical care medicine was consulted for treatment and management. The patient was then emergently transferred to the OR for evacuation of hematoma with right ventriculostomy placement. 05/14 Afebrile. The patient is status post evacuation of large left frontal temporal ICH. Overnight the patient had increasing urinary output, approximately 919599 cc/hr, for approximately 3 hours with resolution of polyuria. The patient remains sedated on propofol infusion. Cerebral perfusion pressures have been 60-86, throughout the night. 05/15 The patient became hypothermic yesterday afternoon, temperature 95.0 requiring supplemental heat with Bairhugger . Initial blood culture revealed gram-positive pleomorphic rods, ID was consulted, Dr. Duff and patient was placed on Unasyn. Repeat CT head this a.m. shows continued mass effect. CPP remains 6580. 05/16 No change in neurological evaluation with cessation of sedation. ANDRÉS drains were removed this a.m.. ICPs became elevated yesterday afternoon requiring Versed and Fentanyl infusion. Last evening, the patient required addition of phenylephrine to maintain adequate MAP. Overnight, the patient's urine output was decreased, the patient received 1 L bolus of normal saline. 05/17 Afebrile. Resolution of oliguria, the patient remains on phenylephrine for vasopressor support. ICPs stable overnight, the patient continues on Versed and fentanyl infusions. Cessation of all sedation, reveals no change in neurological evaluation, pupils nonreactive, flaccid to deep pain stimulation, spontaneous ventilations over mechanical ventilation. Extensive discussion with family yesterday, family on aware of events leading up to admission to hospital. Family informed of poor prognosis, palliative care consult initiated for discussion of goals of care. 05/18 Tube feeds have been on hold since yesterday at 2 PM due to elevated residuals at 300. No bowel movement since admission. Off phenylephrine since yesterday about 5 pm. No significant neuro change. Remain off versed, was only started briefly yesterday due to hypertension/tachycardia when repositioned in bed. Ventric not draining well, neurosurgery aware and Margeaux flushed. ICP 6-8 Subjective: 05/19 ICP reading 22-24. Ventric not draining and NSG aware. Given versed bolus and adjusted vent to target End Tidal 30-35 (PaCO2 35-40). Had a bowel movement yesterday. Tolerating tube feed overnight. 05/20 New onset of seizures last night. ICPs have been in the 20s. Ativan ordered PRN.Family meeting planned for today to continue discussion of goals of care. 05/21 No seizures in the last 24 hours. Neurological status unchanged. Palliative care consult on board. The family has decided for comfort care measures to be initiated tomorrow evening. Tube feedings discontinued. 05/22 No acute events overnight. Family plan for comfort care measures/ withdrawal today. Objective Vital Signs Date Time Temp Pulse Resp B/P Pulse Ox O2 Delivery O2 Flow Rate FiO2 05/22/16 11:18 96 35 05/22/16 06:00 88 05/22/16 04:00 99.9 16 122/93 Intake and Output 05/21/16 05/21/16 05/22/16 08:00 16:00 00:00 Intake Total 1691 ml 1136 ml 320 ml Output Total 3404 ml 1603 ml 1680 ml Balance -1713 ml -467 ml -1360 ml Result Diagram: 05/20/16 0515 05/20/16 0515 Imaging Last Impressions Chest X-Ray 05/16/16 0000 Signed Impressions: Service Date/Time: April 07:14 - CONCLUSION: Stable chest x-ray with mild airspace consolidation at the left lung base and atelectasis at the right lung base. Jose De Jesus Sheffield MD Head CT 05/15/16 0600 Signed Impressions: Service Date/Time: Sunday, May 15, 2016 04:50 - CONCLUSION: 1. Status post left craniotomy with placement of a drain in the previously noted large acute intraparenchymal hemorrhage in the left mid parietal area. The large hemorrhage has decreased in size compared to the prior study. 2. There continues to be prominent mass effect and midline shift to the right by 1.6 cm. This maybe mildly improved compared to the prior study when it was measured at 2.0 cm. 3. There continues to be extensive and diffuse intraventricular hemorrhage. 4. There continues to be cerebral edema in the left cerebral hemisphere. 5. There is intracranial air characteristic of recent surgery. Tommy Gupta MD Neck CTA 05/13/16 0000 Signed Impressions: Service Date/Time: Friday, May 13, 2016 18:55 - CONCLUSION: 1. Examination negative for carotid stenosis. Minimal calcific plaque at the carotid bifurcations. Great vessel origins patent. Woo Hernandes MD Head CTA 05/13/16 0000 Signed Impressions: Service Date/Time: Friday, May 13, 2016 18:55 - CONCLUSION: 1. Questionable aneurysm versus focal extravasation of contrast around the distal left middle cerebral artery measuring up to 8 mm in diameter. This may be better evaluated angiographically. Intracranial vasospasm present. Woo Hernandes MD Last [address] 05/15/16 0600 Signed Impressions: Service Date/Time: Sunday, May 15, 2016 04:50 - CONCLUSION: 1. Status post left craniotomy with placement of a drain in the previously noted large acute intraparenchymal hemorrhage in the left mid parietal area. The large hemorrhage has decreased in size compared to the prior study. 2. There continues to be prominent mass effect and midline shift to the right by 1.6 cm. This maybe mildly improved compared to the prior study when it was measured at 2.0 cm. 3. There continues to be extensive and diffuse intraventricular hemorrhage. 4. There continues to be cerebral edema in the left cerebral hemisphere. 5. There is intracranial air characteristic of recent surgery. Tommy Gupta MD Chest X-Ray 05/15/16 0600 Signed Impressions: Service Date/Time: Sunday, May 15, 2016 02:45 - CONCLUSION: Stable scattered areas of atelectasis in the right lung. Otherwise, no other new or significant changes. Tommy Gupta MD Last Impressions Head CT 05/13/16 0836 Signed Impressions: Service Date/Time: Friday, May 13, 2016 09:57 - CONCLUSION: 1. There is a large left parietal hemorrhage measuring 6.5 x 7.5 cm which has ruptured into the ventricular system. There is 2 cm of left to right falcine shift and some degree of downward herniation as well. Nomi Conti MD Chest X-Ray 05/13/16 0836 Signed Impressions: Service Date/Time: Friday, May 13, 2016 08:42 - CONCLUSION: 1. ET tube in good position. 2. Widening of the mediastinum. CT imaging of the thorax with contrast is warranted for further assessment. Nomi Conti MD Objective Remarks Drips: Fentanyl 50 g/hr 0.9 NaCl at 125 L per hour GENERAL: Super morbidly obese male intubated and sedated. SKIN: Warm and dry. HEAD: Atraumatic. Normocephalic. L Ventriculostomy in place +5cm, not draining. EYES: R pupil 5 mm and nonreactive, left pupil 4 mm and nonreactive. Mild conjunctival edema B/L. + corneal reflex right eye, absent corneal reflex on the left.. No scleral icterus. No injection or drainage. ENT: No nasal bleeding or discharge. Mucous membranes pink and moist. Orotracheally intubated NECK: Trachea midline. Unable to assess JVD, secondary to body habitus. CARDIOVASCULAR: Normal rate, regular rhythm. S1,S2 RESPIRATORY: No accessory muscle use. Clear to auscultation. Breath sounds equal bilaterally. GASTROINTESTINAL: Abdomen soft, non-tender, nondistended. No guarding. Old well -healed midline surgical scar noted . Tube feeds running at 40 mL/hr. MUSCULOSKELETAL: Extremities without clubbing, cyanosis. 1+ extremity edema. NEUROLOGICAL: Extremities flaccid to deep noxious central and peripheral stimuli. Overbreathing vent. Absent left corneal reflex. Pupils as per above. Urinary Catheter: Yes Concepcion insert reason: Measure Accurate Output Date of Insertion: May 13, 2016 Vascular Central Line Catheter: Yes (CVP monitoring) Date of Insertion: May 13, 2016 Line: Central Venous Catheter Side: Left Location: Subclavian (monitor CVP. Administration of vasoactive medications.) A/P Assessment and Plan This is a 51-year-old morbidly obese male, found down, unresponsive, with shallow respirations, hypoxia for unknown period of time. Upon presentation to the ED, initial exam GCS 3, with stents or posturing on the right to deep pain, and no pupillary response. The patient was found to have a large ICH, status post evacuation. Plan by systems: Neurologic: Large left frontal temporal hemorrhage with midline shift S/P craniotomy evacuation of left frontotemporal hemorrhage, and ventriculostomy placement 05/13/16 Unresponsiveness Seizures - GCS 3T- unresponsive to deep pain. Occasional breathing over the ventilator. Pupils nonreactive on sedation vacation -Fentanyl infusing at 100 mcg/hr in view of ICP in 20s. -ICP in the 20's -CT brain 05/13-large left parietal hemorrhage measuring 6.5 x 7.5 cm which has ruptured into the ventricular system. 2 cm of [id number] falcine shift and some downward herniation -CT brain 05/15-prominent mass effect 1.6 cm midline shift to the right, diffuse intraventricular hemorrhage, cerebral edema left hemisphere -Neurosurgery, Dr Turner following Respiratory: Acute Hypoxic and hypercarbic respiratory failure -Mechanical ventilation, AC mode 650/5/0.35 -Maintain End tidal 30-35. -Maintain O2 sat greater than 92% -Scheduled bronchodilators every 6 hours, and every 2 hours when necessary Cardiovascular: H/O Hypertension -Maintain MAP > 65 mmHg, and CPP >60. Normotensive -ECHO 05/14- EF50-55%, no RWMA FEN/Renal: Oliguria (resolved) Prerenal Azotemia (resolved) Hypophosphatemia-resolved -Maintain Concepcion -Monitor sodium level -Decrease NS to 50 mL/hr -Replete electrolytes per ICU protocol FEN/GI: Morbid obesity Gastric ileus, resolved. -Initiated reglan 10 mg IV q 8 hours due to high residuals and not tolerating tube feeds. KUB - 05/18 normal bowel gas pattern On bowel regimen with colace, senna, lactulose 30 ml daily, Dulcolax [place]. -Tube feeds- discontinued, patient not tolerating tube feeds -Monitor BMP Heme/ID: -Monitor CBC -Follow-up blood culture results 05/14 -Gram positive Pleomorphic rods -Urine 05/15 - positive Strep Pneumo Antigen -ID following. -Dr. Duff -Repeat blood cultures per ID05/14 -NGTD -05/14Sputum culture- NGTD -Legionella urine antigen- neg - Influenza A&B-neg On unasyn 05/14 (previously received rocephin). Discontinued 05/21/16 Endocrine: -Glucose monitoring every 6 hours per ICU protocol - TSH 0.137. Followup T4. Cortisol was normal. -- SSI Prophylaxis: GI Prophylaxis Protonix IV DVT Prophylaxis -- SCDs No pharmacological DVT prophylaxis. will defer to neurosurgery Lines: Peripheral IVs x 2 . Central line left subclavian, left radial a line OR, # 10 Dispo: Dr. Salazar has discussed with family, poor prognosis, with no meaningful recovery - Palliative care on board. Family requests comfort care measures to be initiated toay Discussed with DARKLIGHT INSPECTOR. This patient remains critically ill with one or more organ systems which are or may become a threat to life. I have spent in excess of 31 minutes discontinuously in the care and management of this patient. This time is exclusive of procedures, and includes, but is not limited to, evaluation of the patient, review of the medical record, discussions with family, consultants, nursing staff, or respiratory therapy, and documentation in the medical record. Physician Sheree Deal MD May 22, 2016 11:54
[2016-05-22 12:31] LABS: BLOOD GAS BASE EXCESS 2.2 mmol/L (-2-2); BLOOD GAS HCO3 26 mmol/L (22-26); BLOOD GAS METHEMOGLOBIN 0.8 % (0-2); BLOOD GAS O2 HGB SATURATION 95 % (90-100); BLOOD GAS OXYGEN CONTENT 17.4 Vol % (12.0-20.0); BLOOD GAS PCO2 38 mmHg (38-42); BLOOD GAS PO2 93 mmHg (61-120); CRITICAL VALUE NO; OXYGEN DEVICE VENTILATOR; TEMP CORR TO 98.6
[2016-05-22 12:33] LABS: DRAW SITE ART LINE; FIO2 35 %; STAT NO
[2016-05-22] MEDS ORDERED: fentaNYL DRIP 250 ML IV SCH (13:15)
[2016-05-22] MEDS ORDERED: HYOSCYAMINE 0.5 MG/ML AMP IV ONE (13:15)
[2016-05-22] MEDS ORDERED: HALOPERIDOL LACTATE 5 MG/ML AMP IV PRN (13:15)
[2016-05-22] MEDS ORDERED: LORazepam 2 MG/ML VIAL IV ONE ×2 (13:15→13:30)
[2016-05-22] MEDS ORDERED: FUROSEMIDE 20 MG/2 ML VIAL IV PRN (13:45)
[2016-05-22] MEDS ORDERED: BISACODYL 10 MG SUPP PR PRN (13:45)
[2016-05-22] MEDS ORDERED: ACETAMINOPHEN 650 MG SUPP PR PRN (13:45)
[2016-05-22] MEDS ORDERED: LORazepam 2 MG/ML VIAL IV PRN ×2 (13:45)
[2016-05-22] MEDS ORDERED: LORazepam 2 MG/ML VIAL IVS PRN (13:45)
[2016-05-22] MEDS ORDERED: HYOSCYAMINE 0.5 MG/ML AMP IV PRN (13:45)
--- NOTE | 2016-05-22 14:04 | HHI.HCPN ---
Reason for visit a. To assist with evaluation and management of symptoms including: Dyspnea b. To assist medical decision maker(s) with: better understanding of current medical conditions; weighing benefits/burdens of medical treatment options; making medical treatment decisions. . Subjective/Interval History INTERVAL NOTE: The patient remains unresponsive; no change. Over the weekend, he had some intolerance to the artificial nutrition and it had to be held for some time, and I discontinued it yesterday. He developed seizure activity on Friday, and he has been started on Dilantin. There are no apparent signs of improvement in any way. Febrile intermittently. As per the initial consultation note of 05/17/16 by Donnell Roman MD: This homeless 51-year-old male, with a past history of chronic back pain, obesity, and hypertension, was found down/unresponsive on 05/13/16. First responders did not feel he was protecting his airway, but they were unable to intubate him en route to the hospital. He remained unresponsive. At the emergency department, RS INTUBATION was accomplished, and findings included: * Unresponsive * Temp 95.0, pulse 67, respirations 18 on the ventilator, pressure 147/69 * Oxygen saturation 100% on the ventilator * White count 10.3, hemoglobin 12.2 * Sodium 134, creatinine 0.89, albumin 3.8 * Urine drug screen and alcohol levels negative * Chest x-ray with widened mediastinum and bilateral infiltrates * CT of the head revealed a large left parietal hemorrhage with 2 cm left to right falcine shift Neurosurgery evaluated the patient. They were unable to reach family, and took the patient emergently to the operating room where he underwent a craniotomy with evacuation of the hemorrhage and placement of a right frontal ventriculostomy. He has been in the ISC since then. His only responses are a minimal cough, minimal corneal reflex, and he is breathing some around the ventilator. He is otherwise unresponsive. He was off sedation today for several hours, but his blood pressure began rising, causing an increase in his ICP and the restarting of some sedation. By the day after admission, blood cultures were positive for gram-positive bacteria, and the patient was felt to have aspiration pneumonia. He was kept on antibiotics. As the prognosis is felt to be dismal, Palliative Care was consulted to assist with symptom management and to enter into discussions with family members regarding the prognosis, as well as the benefits and burdens of the various treatment choices now.. . Family/friend interactions Discussion at the bedside with sister Melinda, niece Isadora. They note that they are ready, they are convinced that the right decision has been made to withdrawal life support and allow a comfortable natural , and they request that we proceed at this time with the withdrawal. . Advance Directives Advance Directive Specifics Health Care Surrogate(s): Of the patient's 2 siblings, 1 sister (Mile) and brother (Kee) defer to the third sister Melinda for decision making. There were no advance directives. . Objective Vital Signs Date Time Temp Pulse Resp B/P Pulse Ox O2 Delivery O2 Flow Rate FiO2 05/22/16 11:18 96 35 05/22/16 08:43 94 35 05/22/16 06:00 88 05/22/16 04:04 95 35 05/22/16 04:00 90 05/22/16 04:00 35 05/22/16 04:00 99.9 90 16 122/93 95 05/22/16 02:00 90 05/22/16 00:00 90 05/22/16 00:00 98.6 90 19 126/84 95 05/22/16 00:00 35 05/21/16 23:47 95 35 05/21/16 22:00 98 05/21/16 20:45 99 35 05/21/16 20:45 99 35 05/21/16 20:00 98 05/21/16 20:00 99.2 100 18 138/90 95 05/21/16 20:00 35 05/21/16 18:00 92 05/21/16 16:00 35 05/21/16 16:00 97 05/21/16 16:00 100.8 97 18 124/98 94 05/21/16 15:30 35 Intake & Output 05/22/16 05/22/16 07:00 19:00 Intake Total 705 ml Output Total 2534 ml Balance -1829 ml Intake IV Total 705 ml Output Urine Total 2525 ml Drainage Total 9 ml # Bowel Movements 0 Physical Exam CONSTITUTIONAL/GENERAL: This is an adequately nourished, obese patient, in no apparent distress. Unresponsive in the [facility] TUBES/LINES/DRAINS: peripheral IVs, left subclavian, SCDs, ET tube HEAD: Stapled incisions, ventriculostomy drain. Normocephalic. CARDIOVASCULAR: Regular rate and rhythm without murmurs, gallops, or rubs. No JVD. Peripheral pulses symmetric. RESPIRATORY/CHEST: Symmetric, unlabored respirations. Clear to auscultation. Breath sounds equal bilaterally. No wheezes, rales, or rhonchi. GASTROINTESTINAL: Abdomen soft, obese, nondistended. No hepato-splenomegaly, or palpable masses. Bowel sounds present. MUSCULOSKELETAL: Extremities without clubbing, cyanosis, or edema. No effusion noted. No calf tenderness. No mottling or clubbing. NEUROLOGICAL: Unresponsive PSYCHIATRIC: Unable to evaluate due to his clinical condition . Diagnostic Tests Laboratory Laboratory Tests Test 05/19/16 05/20/16 05/22/16 23:25 05:15 12:20 Urine Specific [place] 1.008 (1.002-1.035) Sodium Level 136 MEQ/L 134 MEQ/L (136-145) (136-145) White Blood Count 11.0 TH/MM3 (4.0-11.0) Red Blood Count 3.70 MIL/MM3 (4.50-5.90) Hemoglobin 10.0 GM/DL (13.0-17.0) Hematocrit 29.8 % (39.0-51.0) Mean Corpuscular Volume 80.5 FL (80.0-100.0) Mean Corpuscular Hemoglobin 27.0 PG (27.0-34.0) Mean Corpuscular Hemoglobin 33.5 % Concent (32.0-36.0) Red Cell Distribution Width 14.2 % (11.6-17.2) Platelet Count 279 TH/MM3 (150-450) Mean Platelet Volume 7.0 FL (7.0-11.0) Neutrophils (%) (Auto) % (16.0-70.0) Lymphocytes (%) (Auto) % (9.0-44.0) Monocytes (%) (Auto) % (0.0-8.0) Eosinophils (%) (Auto) % (0.0-4.0) Basophils (%) (Auto) % (0.0-2.0) Neutrophils # (Auto) TH/MM3 (1.8-7.7) Lymphocytes # (Auto) TH/MM3 (1.0-4.8) Monocytes # (Auto) TH/MM3 (0-0.9) Eosinophils # (Auto) TH/MM3 (0-0.4) Basophils # (Auto) TH/MM3 (0-0.2) CBC Comment AUTO DIFF Differential Total Cells 100 Counted Neutrophils % (Manual) 63 % (16-70) Band Neutrophils % 8 % (0-6) Lymphocytes % 5 % (9-44) Monocytes % 17 % (0-8) Eosinophils % 4 % (0-4) Neutrophils # (Manual) 8.1 TH/MM3 (1.8-7.7) Metamyelocytes 1 % (0-1) Myelocytes 2 % (0-0) Differential Comment FINAL DIFF MANUAL Platelet Estimate NORMAL (NORMAL) Platelet Morphology Comment NORMAL (NORMAL) Target Cells 1+ (NORMAL) Stomatocytes 1+ (NORMAL) Potassium Level 4.3 MEQ/L (3.5-5.1) Chloride Level 99 MEQ/L (98-107) Carbon Dioxide Level 26.8 MEQ/L (21.0-32.0) Anion Gap 8 MEQ/L (5-15) Blood Urea Nitrogen 12 MG/DL (7-18) Creatinine 0.53 MG/DL (0.60-1.30) Estimat Glomerular Filtration 199 ML/MIN Rate (>89) Random Glucose 110 MG/DL (74-106) Calcium Level 9.2 MG/DL (8.5-10.1) Blood Gas Puncture Site ART LINE Blood Gas Patient Temperature 98.6 Blood Gas HCO3 26 mmol/L (22-26) Blood Gas Base Excess 2.2 mmol/L (-2-2) Blood Gas Oxygen Saturation 95 % (90-100) Arterial Blood pH 7.45 (7.380-7.420) Arterial Blood Partial 38 mmHg (38-42) Pressure CO2 Arterial Blood Partial 93 mmHg Pressure O2 (61-120) Arterial Blood Oxygen Content 17.4 Vol % (12.0-20.0) Arterial Blood 1.0 % (0-4) Carboxyhemoglobin Arterial Blood Methemoglobin 0.8 % (0-2) Blood Gas Hemoglobin 13.0 G/DL (12.0-16.0) Oxygen Delivery Device VENTILATOR Blood Gas Ventilator Setting Blood Gas Inspired Oxygen 35 % Result Diagram: 05/20/16 0515 05/20/16 0515 Procedures INTUBATION 05/13/16 Craniotomy, evacuation of hemorrhage, placement of ventriculostomy 05/13/16 . Assessment and Plan Disease Oriented Problem List: (1) large intracerebral hemorrhage, with 2 cm midline shift (2) Respiratory failure (3) aspiration pneumonia (4) obesity (5) hyperlipidemia (6) chronic back pain (7) hypertension (8) seizures Symptom Scale: (1) pain 0-10 Scale: Unable to quantify (2) dyspnea 0-10 Scale: Unable to quantify Pertinent Non-Medical Issues Psychosocial: Homeless, unmarried, no children, limited interaction with most of his family members for quite some time, but has had continued interaction with his sister Melinda. 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 Legal: The patient lacks capacity, and he will not regain capacity for decision -making. The patient has no spouse or children or parents. He has 2 sisters and a brother, and by law decision making would fall to the majority of the 3 of them who are willing to participate. The patient's sister Mile and his brother Kee are deferring decision making to the patient's sister Melinda Amador. Ethical issues impacting care: None. . Important Contacts Patient's sister Melinda Amador: [phone] . Prognosis This patient is terminal, with no opportunity for meaningful recovery. He will either soon with withdrawal of life support, or in the upcoming weeks from the usual complications of this level of debility. . Code Status: Alternative Code Plan * ALTERNATE CODE - intubation only * GOALS: The family requests that we proceed with withdrawal of life support, and a transition to comfort care only for a peaceful and natural . * DECISION-MAKING: The patient has no spouse or children or parents. He has 2 sisters and a brother, and by law decision making would fall to the majority of the 3 of them who are willing to participate. The patient's sister Mile and his brother Kee are deferring decision making to the patient's sister Melinda Amador....she is the proxy. * SYMPTOMS: It is difficult to know if the patient is perceiving any pain ( recent surgery, ICH, bedbound status) or dyspnea at this time. He is on fentanyl and the ventilator to manage the symptoms at this time. No new medicine orders at this time. * Palliative Care will continue to follow the patient during this hospitalization. . Time Spent Total Floor Time (mins): 40 Face to Face Time (mins): 22 >50% Counseling/Coord of Care: Yes (d/w Dr. Salazar and w RN) Attestation To help prompt me to consider important information that might be impacting today's encounter and assessment, information from prior notes written by myself or my colleagues may have been "brought forward" into today's note. My signature on this note, however, is an attestation that I personally performed the exam, history, and/or decision-making noted today, and, unless otherwise indicated, the interactions with patient, family, and staff as well as the review of records all occurred today. I also attest that the listed assessment and stated plan reflect my best clinical judgment today based on the combination of historical information, prior notes, and today's exam/ interactions. When time spent is documented, it refers only to time spent today by the signer, or if indicated, combined time spent today by collaborating physician/nurse practitioner. Alma Roman MD May 22, 2016 14:04
[2016-05-22] MEDS ORDERED: LORazepam 2 MG/ML VIAL IV SCH (16:00)
--- NOTE | 2016-07-06 17:23 | HHI.DS ---
Summary Note Date of : May 22, 2016 Time Of : 1554 Admission Date May 13, 2016 at 09:35 Admitting Diagnosis unresponsive/intubated Diagnosis at Time of : Brief History 51-year-old morbidly obese male ,with unknown medical history, presented to the ED this am. Per EMS report, the patient was found down on a park bench, unresponsive, coarse respirations.EMS attempted to intubate the patient due to coarse respiration and not protecting airway, and were unsuccessful on scene. He was brought into the ED for unresponsiveness. No family or individuals were present to provide any history. The patient was intubated in the ED. Patient was noted to be hypothermic, temperature 95.0, warming methods were initiated via IV fluid and Leslie Hugger. Imaging studies were performed in the ED, T of the brain noted a large left parietal hemorrhage , neurosurgery was consulted. Dr. Turner evaluated the patient, and critical care medicine was consulted for treatment and management. The patient was then emergently transferred to the OR for evacuation of hematoma with right ventriculostomy placement. [facility] Past Medical History Medical History: Unable to Obtain Tetanus Vaccination: Unknown Past Surgical History Surgical History: Unable to Obtain Social History Alcohol Use: No (UNOBTAINABLE) Tobacco Use: No (UNOBTAINABLE) Substance Use: No (UNOBTAINABLE) Allergies-Medications (Allergen,Severity, Reaction): Coded Allergies: No Known Allergies (Unverified , 05/13/16) Reported Meds & Prescriptions Reported Meds & Active Scripts Active Active Prescriptions or Reported Medications Unobtainable Review of Systems ROS Limitations: Unresponsive Imaging Last Impressions Chest X-Ray 05/16/16 0000 Signed Impressions: Service Date/Time: April 07:14 - CONCLUSION: Stable chest x-ray with mild airspace consolidation at the left lung base and atelectasis at the right lung base. Jose De Jesus Sheffield MD Head CT 05/15/16 0600 Signed Impressions: Service Date/Time: Sunday, May 15, 2016 04:50 - CONCLUSION: 1. Status post left craniotomy with placement of a drain in the previously noted large acute intraparenchymal hemorrhage in the left mid parietal area. The large hemorrhage has decreased in size compared to the prior study. 2. There continues to be prominent mass effect and midline shift to the right by 1.6 cm. This maybe mildly improved compared to the prior study when it was measured at 2.0 cm. 3. There continues to be extensive and diffuse intraventricular hemorrhage. 4. There continues to be cerebral edema in the left cerebral hemisphere. 5. There is intracranial air characteristic of recent surgery. Tommy Gupta MD Neck CTA 05/13/16 0000 Signed Impressions: Service Date/Time: Friday, May 13, 2016 18:55 - CONCLUSION: 1. Examination negative for carotid stenosis. Minimal calcific plaque at the carotid bifurcations. Great vessel origins patent. Woo Hernandes MD Head CTA 05/13/16 0000 Signed Impressions: Service Date/Time: Friday, May 13, 2016 18:55 - CONCLUSION: 1. Questionable aneurysm versus focal extravasation of contrast around the distal left middle cerebral artery measuring up to 8 mm in diameter. This may be better evaluated angiographically. Intracranial vasospasm present. Woo Hernandes MD Last [address] 05/15/16 0600 Signed Impressions: Service Date/Time: Sunday, May 15, 2016 04:50 - CONCLUSION: 1. Status post left craniotomy with placement of a drain in the previously noted large acute intraparenchymal hemorrhage in the left mid parietal area. The large hemorrhage has decreased in size compared to the prior study. 2. There continues to be prominent mass effect and midline shift to the right by 1.6 cm. This maybe mildly improved compared to the prior study when it was measured at 2.0 cm. 3. There continues to be extensive and diffuse intraventricular hemorrhage. 4. There continues to be cerebral edema in the left cerebral hemisphere. 5. There is intracranial air characteristic of recent surgery. Tommy Gupta MD Chest X-Ray 05/15/16 0600 Signed Impressions: Service Date/Time: Sunday, May 15, 2016 02:45 - CONCLUSION: Stable scattered areas of atelectasis in the right lung. Otherwise, no other new or significant changes. Tommy Gupta MD Last Impressions Head CT 05/13/16 0836 Signed Impressions: Service Date/Time: Friday, May 13, 2016 09:57 - CONCLUSION: 1. There is a large left parietal hemorrhage measuring 6.5 x 7.5 cm which has ruptured into the ventricular system. There is 2 cm of left to right falcine shift and some degree of downward herniation as well. Nomi Conti MD Chest X-Ray 05/13/16 0836 Signed Impressions: Service Date/Time: Friday, May 13, 2016 08:42 - CONCLUSION: 1. ET tube in good position. 2. Widening of the mediastinum. CT imaging of the thorax with contrast is warranted for further assessment. Nomi Conti MD Hospital Course 51-year-old morbidly obese male ,with unknown medical history, presented to the ED this am. Per EMS report, the patient was found down on a park bench, unresponsive, coarse respirations.EMS attempted to intubate the patient due to coarse respiration and not protecting airway, and were unsuccessful on scene. He was brought into the ED for unresponsiveness. No family or individuals were present to provide any history. The patient was intubated in the ED. Patient was noted to be hypothermic, temperature 95.0, warming methods were initiated via IV fluid and Leslie Hugger. Imaging studies were performed in the ED, T of the brain noted a large left parietal hemorrhage , neurosurgery was consulted. Dr. Turner evaluated the patient, and critical care medicine was consulted for treatment and management. The patient was then emergently transferred to the OR for evacuation of hematoma with right ventriculostomy placement. 05/14 Afebrile. The patient is status post evacuation of large left frontal temporal ICH. Overnight the patient had increasing urinary output, approximately [id number] cc/hr, for approximately 3 hours with resolution of polyuria. The patient remains sedated on propofol infusion. Cerebral perfusion pressures have been 60-86, throughout the night. 05/15 The patient became hypothermic yesterday afternoon, temperature 95.0 requiring supplemental heat with Bairhugger . Initial blood culture revealed gram-positive pleomorphic rods, ID was consulted, Dr. Duff and patient was placed on Unasyn. Repeat CT head this a.m. shows continued mass effect. CPP remains 6580. 05/16 No change in neurological evaluation with cessation of sedation. ANDRÉS drains were removed this a.m.. ICPs became elevated yesterday afternoon requiring Versed and Fentanyl infusion. Last evening, the patient required addition of phenylephrine to maintain adequate MAP. Overnight, the patient's urine output was decreased, the patient received 1 L bolus of normal saline. 05/17 Afebrile. Resolution of oliguria, the patient remains on phenylephrine for vasopressor support. ICPs stable overnight, the patient continues on Versed and fentanyl infusions. Cessation of all sedation, reveals no change in neurological evaluation, pupils nonreactive, flaccid to deep pain stimulation, spontaneous ventilations over mechanical ventilation. Extensive discussion with family yesterday, family on aware of events leading up to admission to hospital. Family informed of poor prognosis, palliative care consult initiated for discussion of goals of care. 05/18 Tube feeds have been on hold since yesterday at 2 PM due to elevated residuals at 300. No bowel movement since admission. Off phenylephrine since yesterday about 5 pm. No significant neuro change. Remain off versed, was only started briefly yesterday due to hypertension/tachycardia when repositioned in bed. Ventric not draining well, neurosurgery aware and Margeaux flushed. ICP 6-8 Subjective: 05/19 ICP reading 22-24. Ventric not draining and NSG aware. Given versed bolus and adjusted vent to target End Tidal 30-35 (PaCO2 35-40). Had a bowel movement yesterday. Tolerating tube feed overnight. 05/20 New onset of seizures last night. ICPs have been in the 20s. Ativan ordered PRN.Family meeting planned for today to continue discussion of goals of care. 05/21 No seizures in the last 24 hours. Neurological status unchanged. Palliative care consult on board. The family has decided for comfort care measures to be initiated tomorrow evening. Tube feedings discontinued. 05/22 No acute events overnight. Family plan for comfort care measures/ withdrawal today. Comfort care measures were instituted with family at the bedside.The patient at 1554. Sheree Salazar MD Jul 06, 2016 17:23
== END 2016-05-22 20:00 | disposition expired | DRG 23 ==
LOC: NEPC 08:13 → NEDA 09:35 → N03A 19:28
PROVIDERS: ADMIT Internal Medicine Critical Care Medicine; ATTEND Internal Medicine Critical Care Medicine
PROC: 5A1955Z Respiratory Ventilation, Greater than 96 Consecutive Hours (ICD-10-PCS; 2016-05-13)
PROC: 009630Z Drainage of Cerebral Ventricle with Drainage Device, Percutaneous Approach (ICD-10-PCS; 2016-05-13)
PROC: 0BH17EZ Insertion of Endotracheal Airway into Trachea, Via Natural or Artificial Opening (ICD-10-PCS; 2016-05-13)
PROC: 00C00ZZ Extirpation of Matter from Brain, Open Approach (ICD-10-PCS; principal; 2016-05-13 12:40)
DX: I61.5 Nontraumatic intracerebral hemorrhage, intraventricular (principal); J96.01 Acute respiratory failure with hypoxia; J69.0 Pneumonitis due to inhalation of food and vomit; G93.6 Cerebral edema; J96.02 Acute respiratory failure with hypercapnia; E22.2 Syndrome of inappropriate secretion of antidiuretic hormone; Z68.43 Body mass index [BMI] 50.0-59.9, adult; K56.7 Ileus, unspecified; I16.1 Hypertensive emergency; R56.9 Unspecified convulsions; E66.01 Morbid (severe) obesity due to excess calories; E83.39 Other disorders of phosphorus metabolism; I10 Essential (primary) hypertension; R68.0 Hypothermia, not associated with low environmental temperature; R35.8 Other polyuria; E78.1 Pure hyperglyceridemia; E78.00 Pure hypercholesterolemia, unspecified; Z51.5 Encounter for palliative care; Z66 Do not resuscitate; B95.3 Streptococcus pneumoniae as the cause of diseases classified elsewhere; Z59.0 Homelessness
CPT/HCPCS: 31500; 36430; 36600; 51702; 70450; 70496; 70498; 71010; 74000; 80048; 80053; 80076; 80307; 80320; 81001; 81003; 82140; 82533; 82550; 82552; 82570; 82805; 82948; 83605; 83735; 83880; 83930; 83935; 84100; 84132; 84295; 84300; 84439; 84443; 84484; 85007; 85025; 85027; 85610; 85730; 86403; 86850; 86900; 86901; 86920; 87040; 87070; 87205; 87449; 93005; 93306; 94002; 94003; 94640; 94664; 94770; 96365; 96375; C1713; C9113; J0171; J0295; J0330; J0456; J0696; J1580; J1980; J2060; J2250; J2270; J2370; J2405; J2765; J3010; J3480; J7030; J7040; J7050; J7060; J7120; P9016; Q2009; Q9967